=== PATIENT | male | born 1940 | race Caucasian/White ===

== ENCOUNTER 2019-09-19 07:53 | Inpatient (IN) | payer MEDICARE ==
--- NOTE | 2019-09-19 08:04 | ED ---
General Adult HPI - General Stated complaint: Stemi Time Seen by Provider: 09/19/19 08:00 Source: EMS Mode of arrival: EMS Limitations: no limitations - History of Present Illness Initial comments: Dictation was produced using Viewpoint Digital dictation software. please excuse any gra mmatical, word or spelling errors. This patient was cared for during a federal and state declared state of emergency secondary to Covid 19 Chief Complaint: 79-year-old male past medical history of hypertension presents with chest pain History of Present Illness: Is 9-year-old male is brought in by EMS for chest pain. Patient states he was going through his daily routine. Taken his pills when all of a sudden he developed substernal left-sided chest pain. Patient states her was maybe some clammy and diaphoresis during the onset of his symptoms. Denies any numbness feeling to his arms or legs. Patient states that since me in emergency department he feels okay. Still does have some 4-10 chest pain. Patient denies any history of heart attacks. He denies any cardiac issues. EMS was called. EMS performed EKG concerning for inferior wall STEMI. The ROS documented in this emergency department record has been reviewed and confirmed by me. Those systems with pertinent positive or negative responses have been documented in the HPI. All other systems are other negative and/or noncontributory. PHYSICAL EXAM: General Impression: Alert and oriented x3, not in acute distress HEENT: Normocephalic atraumatic, extra-ocular movements intact, pupils equal and reactive to light bilaterally, mucous membranes moist. Cardiovascular: Heart regular rate and rhythm Chest: Able to complete full sentences, no retractions, no tachypnea Abdomen: abdomen soft, non-tender, non-distended, no organomegaly Musculoskeletal: Pulses present and equal in all extremities, no peripheral edema Motor: no focal deficits noted Neurological: CN II-XII grossly intact, no focal motor or sensory deficits noted Skin: Intact with no visualized rashes Psych: Normal affect and mood ED course: 79-year-old male presents with acute coronary syndrome. EMS faxed over patient's prehospital EKG showing inferior wall STEMI. EMS also performed a right-sided V4 lead showing elevations. Patient is given prehospital aspirin. He was not given any nitroglycerin. As upon arrival are within acceptable limits. Discussed patient case with Dr. Jones prior to patient's arrival. He requested that patient be briefly evaluated in the ER and to have blood obtained for laboratory evaluation and to hence directly to the rags laborer. EKG in our emergency department was obtained showing ST elevations in the inferior leads with reciprocal changes in high lateral and precordial leads concerning for ST segment elevation GA. Patient disposition directly to the catheterization lab. EKG interpretation: Ventricular rate 70, normal sinus rhythm, right bundle branch block,. Interval 190, QRS 152, QTC 473. ST elevations in II, III, and F aVF with T-wave inversions. There are ST depressions in V2 V3, 1 and aVL.. EKG consistent with ST segment elevation GA. - Related Data Home Medications Medication Instructions Recorded Confirmed Atorvastatin Calcium [Lipitor] 20 mg PO HS 09/19/19 09/19/19 Beet Root 1000mg 2,000 mg PO DAILY 09/19/19 09/19/19 Cholecalciferol [Vitamin D3 (25 5,000 unit PO DAILY 09/19/19 09/19/19 Mcg = 1000 Iu)] Citalopram Hydrobromide [CeleXA] 20 mg PO DAILY 09/19/19 09/19/19 Donepezil [Aricept] 10 mg PO DAILY 09/19/19 09/19/19 Magnesium Oxide [Mag-Ox] 800 mg PO DAILY 09/19/19 09/19/19 Memantine HCl [Memantine HCl ER] 28 mg PO DAILY 09/19/19 09/19/19 Tamsulosin HCl [Flomax] 0.4 mg PO DAILY 09/19/19 09/19/19 Vitamin B Complex 1 tab PO DAILY 09/19/19 09/19/19 amLODIPine [Norvasc] 5 mg PO DAILY 09/19/19 09/19/19 traZODone HCL 150 mg PO HS 09/19/19 09/19/19 Allergies Allergy/AdvReac Type Severity Reaction Status Date / Time Penicillins Allergy Rash/Hives Verified 09/19/19 11:16 Review of Systems ROS Statement: Those systems with pertinent positive or pertinent negative responses have been documented in the HPI. ROS Other: All systems not noted in ROS Statement are negative. Past Medical History Past Medical History: Unable to Obtain, Dementia History of Any Multi-Drug Resistant Organisms: None Reported Past Surgical History: Unable to Obtain Past Psychological History: No Psychological Hx Reported Smoking Status: Never smoker Past Alcohol Use History: Daily Past Drug Use History: None Reported - Past Family History Father Additional Family Medical History / Comment(s): Father was an alcoholic. Mother Additional Family Medical History / Comment(s): Mother was an alcoholic General Exam Limitations: no limitations Course Vital Signs 09/19/19 07:57 Temperature 98.4 F Pulse Rate 71 Respiratory 18 Rate Blood Pressure 108/77 O2 Sat by Pulse 94 L Oximetry Medical Decision Making - Lab Data Result diagrams: 09/21/19 05:02 09/21/19 05:02 Lab Results 09/19/19 09/19/19 09/19/19 Range/Units 08:02 08:02 08:02 WBC 13.0 H (3.8-10.6) k/uL RBC 3.97 L (4.30-5.90) m/uL Hgb 13.5 (13.0-17.5) gm/dL Hct 39.5 (39.0-53.0) % MCV 99.5 (80.0-100.0) fL MCH 34.0 (25.0-35.0) pg MCHC 34.1 (31.0-37.0) g/dL RDW 12.9 (11.5-15.5) % Plt Count 249 (150-450) k/uL Neutrophils % 82 % Lymphocytes % 8 % Monocytes % 8 % Eosinophils % 1 % Basophils % 0 % Neutrophils # 10.6 H (1.3-7.7) k/uL Lymphocytes # 1.0 (1.0-4.8) k/uL Monocytes # 1.1 H (0-1.0) k/uL Eosinophils # 0.1 (0-0.7) k/uL Basophils # 0.0 (0-0.2) k/uL PT 9.8 (9.0-12.0) sec INR 0.9 (<1.2) APTT 25.9 (22.0-30.0) sec Sodium 138 (137-145) mmol/L Potassium 3.9 (3.5-5.1) mmol/L Chloride 105 (98-107) mmol/L Carbon Dioxide 26 (22-30) mmol/L Anion Gap 7 mmol/L BUN 16 (9-20) mg/dL Creatinine 0.83 (0.66-1.25) mg/dL Est GFR (CKD-EPI)AfAm >90 (>60 ml/min/1.73 sqM) Est GFR (CKD-EPI)NonAf 85 (>60 ml/min/1.73 sqM) Glucose 133 H (74-99) mg/dL Calcium 9.0 (8.4-10.2) mg/dL Total Bilirubin 0.4 (0.2-1.3) mg/dL AST 495 H (17-59) U/L ALT 73 H (4-49) U/L Alkaline Phosphatase 74 (38-126) U/L Total Creatine Kinase (55-170) U/L CK-MB (CK-2) (0.0-2.4) ng/mL CK-MB (CK-2) Rel Index Troponin I (0.000-0.034) ng/mL Total Protein 6.8 (6.3-8.2) g/dL Albumin 4.1 (3.5-5.0) g/dL 09/19/19 Range/Units 08:02 WBC (3.8-10.6) k/uL RBC (4.30-5.90) m/uL Hgb (13.0-17.5) gm/dL Hct (39.0-53.0) % MCV (80.0-100.0) fL MCH (25.0-35.0) pg MCHC (31.0-37.0) g/dL RDW (11.5-15.5) % Plt Count (150-450) k/uL Neutrophils % % Lymphocytes % % Monocytes % % Eosinophils % % Basophils % % Neutrophils # (1.3-7.7) k/uL Lymphocytes # (1.0-4.8) k/uL Monocytes # (0-1.0) k/uL Eosinophils # (0-0.7) k/uL Basophils # (0-0.2) k/uL PT (9.0-12.0) sec INR (<1.2) APTT (22.0-30.0) sec Sodium (137-145) mmol/L Potassium (3.5-5.1) mmol/L Chloride (98-107) mmol/L Carbon Dioxide (22-30) mmol/L Anion Gap mmol/L BUN (9-20) mg/dL Creatinine (0.66-1.25) mg/dL Est GFR (CKD-EPI)AfAm (>60 ml/min/1.73 sqM) Est GFR (CKD-EPI)NonAf (>60 ml/min/1.73 sqM) Glucose (74-99) mg/dL Calcium (8.4-10.2) mg/dL Total Bilirubin (0.2-1.3) mg/dL AST (17-59) U/L ALT (4-49) U/L Alkaline Phosphatase (38-126) U/L Total Creatine Kinase 2933 H* (55-170) U/L CK-MB (CK-2) 127.0 H (0.0-2.4) ng/mL CK-MB (CK-2) Rel Index Troponin I 70.300 H* (0.000-0.034) ng/mL Total Protein (6.3-8.2) g/dL Albumin (3.5-5.0) g/dL Disposition Clinical Impression: ST elevation myocardial infarction (STEMI) Disposition: ADMITTED IP TO THIS HOSP Condition: Critical Decision Time: 14:51
[2019-09-19] MEDS ORDERED: NALOXONE 0.4 MG/ML 1 ML VIAL IV PRN (08:09)
[2019-09-19 08:10] LABS: Basophils % (A) 0 %; Eosinophils # (A) 0.1 k/uL (0-0.7); Eosinophils % (A) 1 %; HCT 39.5 % (39.0-53.0); HGB 13.5 gm/dL (13.0-17.5); Lymphocytes % (A) 8 %; MCHC 34.1 g/dL (31.0-37.0); MCV 99.5 fL (80.0-100.0); Mean Platelet Volume 7.6; Monocytes # (A) 1.1 k/uL (0-1.0); Monocytes % (A) 8 %; Neutrophils # (A) 10.6 k/uL (1.3-7.7); Neutrophils % (A) 82 %; Platelet Count 249 k/uL (150-450); RBC 3.97 m/uL (4.30-5.90); RDW 12.9 % (11.5-15.5)
[2019-09-19] MEDS ORDERED: LIDOCAINE 1% INJ 10MG/ML (20 ML MDV) ONE ×2 (08:13→08:25)
[2019-09-19] MEDS ORDERED: LIDOCAINE 1% INJ 10MG/ML (20 ML MDV) SQ ONE ×2 (08:17→08:19)
[2019-09-19] MEDS ORDERED: MIDAZOLAM 2 MG/2 ML VIAL IV ONE (08:17)
[2019-09-19 08:18] LABS: INR 0.9 (<1.2)
[2019-09-19] MEDS ORDERED: SODIUM CHLORIDE 0.9% 1,000 ML IV ONE (08:18)
[2019-09-19 08:19] LABS: Partial Thromboplastin Time 25.9 sec (22.0-30.0); Prothrombin Time 9.8 sec (9.0-12.0)
[2019-09-19 08:20] LABS: African American GFR (CKD) >90 (>60 ml/min/1.73 sqM); Anion Gap 7 mmol/L; Blood Urea Nitrogen 16 mg/dL (9-20); Carbon Dioxide 26 mmol/L (22-30); Chloride 105 mmol/L (98-107); Glucose 133 mg/dL (74-99); Non-African American GFR(CKD) 85 (>60 ml/min/1.73 sqM); Potassium 3.9 mmol/L (3.5-5.1); Sodium 138 mmol/L (137-145); Total Protein 6.8 g/dL (6.3-8.2)
[2019-09-19 08:21] LABS: ALT 73 U/L (4-49); AST 495 U/L (17-59); Albumin 4.1 g/dL (3.5-5.0); Alkaline Phosphatase 74 U/L (38-126); Total Bilirubin 0.4 mg/dL (0.2-1.3)
[2019-09-19] MEDS ORDERED: CLOPIDOGREL 75 MG TAB ONE (08:45)
[2019-09-19] MEDS ORDERED: BIVALIRUDIN BOLUS 250 MG/50 ML IV ONE (08:46)
[2019-09-19 08:47] LABS: Troponin I 70.3 ng/mL (0.000-0.034)
[2019-09-19] MEDS ORDERED: BIVALIRUDIN 250 MG in SODIUM CHLORIDE 0.9% 50 ML IV ONE (08:47)
[2019-09-19] MEDS ORDERED: CLOPIDOGREL 75 MG TAB PO ONE (08:47)
[2019-09-19] MEDS ORDERED: NITROGLYCERIN 1000MCG/10ML SYRINGE INTRACORON ONE ×2 (08:50)
[2019-09-19] MEDS ORDERED: IOPAMIDOL-370 100ML BTL INJ ONE (08:56)
[2019-09-19] MEDS ORDERED: MAG HYDROX/AL HYDROX/SIMETH 30 ML CUP PO PRN (10:03)
[2019-09-19] MEDS ORDERED: ATROPINE SULFATE 0.1 MG/ML 10ML SYRINGE IV PRN (10:03)
[2019-09-19] MEDS ORDERED: ZOLPIDEM 5 MG TAB PO PRN (10:03)
[2019-09-19] MEDS ORDERED: NITROGLYCERIN SL TABS 0.4 MG TAB SUBLINGUAL PRN (10:03)
[2019-09-19] MEDS ORDERED: RX INFO: IV CONTRAST WAS GIVEN 1 EACH MISC MISCELLANE PRN (10:03)
[2019-09-19] MEDS ORDERED: SODIUM CHLORIDE 0.9% 1,000 ML IV SCH (10:15)
[2019-09-19 10:44] LABS: Glucose,Whole Blood 131 mg/dL (75-99)
[2019-09-19] MEDS ORDERED: traZODone HCL 50 MG TAB PO PRN (11:24)
--- NOTE | 2019-09-19 11:32 | P.HPIM ---
History of Present Illness patient is a pleasant 79-year-old male came with complaints of left-sided chest pain which started today nonexertional, associated diaphoresis and nausea. Patient denied any fever chills cough. Patient is found to have ST elevations in the inferior leads with highly elevated troponin of 70. Patient was emergently taken to High Lift Mule Operator had stenting to RCA. Patient still has mild chest pain. Denied any other significant symptoms Review of Systems REVIEW OF SYSTEMS: CONSTITUTIONAL: No fever, no malaise, no fatigue. HEENT: No recent visual problems or hearing problems. Denied any sore throat. CARDIOVASCULAR: No orthopnea, PND, no palpitations, no syncope. PULMONARY: No shortness of breath, no cough, no hemoptysis. GASTROINTESTINAL: No diarrhea, no nausea, no vomiting, no abdominal pain. NEUROLOGICAL: No headaches, no weakness, no numbness. HEMATOLOGICAL: Denies any bleeding or petechiae. GENITOURINARY: Denies any burning micturition, frequency, or urgency. MUSCULOSKELETAL/RHEUMATOLOGICAL: Denies any joint pain, swelling, or any muscle pain. ENDOCRINE: Denies any polyuria or polydipsia. The rest of the 14-point review of systems is negative. Past Medical History Past Medical History: Cancer, Dementia, Hearing Disorder / Deafness, Hy perlipidemia, Hypertension, Prostate Disorder Additional Past Medical History / Comment(s): Prostate cancer with radiation treatments, benign colon polyps, bilateral hearing aides. History of Any Multi-Drug Resistant Organisms: None Reported Past Surgical History: Heart Catheterization With Stent Additional Past Surgical History / Comment(s): Cystoscopy, colonoscopy with benign polypectomy, EGD as a child for foreign object, R elbow fracture with surgery, L hand injury with surgery. Past Anesthesia/Blood Transfusion Reactions: No Reported Reaction Date of Last Stent Placement:: 09/19/19 Smoking Status: Former smoker - Past Family History Father Additional Family Medical History / Comment(s): Father was an alcoholic. Mother Additional Family Medical History / Comment(s): Mother was an alcoholic Medications and Allergies Home Medications Medication Instructions Recorded Confirmed Type Atorvastatin Calcium [Lipitor] 20 mg PO HS 09/19/19 09/19/19 History Beet Root 1000mg 2,000 mg PO DAILY 09/19/19 09/19/19 History Cholecalciferol [Vitamin D3 (25 5,000 unit PO DAILY 09/19/19 09/19/19 History Mcg = 1000 Iu)] Citalopram Hydrobromide [CeleXA] 20 mg PO DAILY 09/19/19 09/19/19 History Donepezil [Aricept] 10 mg PO DAILY 09/19/19 09/19/19 History Magnesium Oxide [Mag-Ox] 800 mg PO DAILY 09/19/19 09/19/19 History Memantine HCl [Memantine HCl ER] 28 mg PO DAILY 09/19/19 09/19/19 History Tamsulosin HCl [Flomax] 0.4 mg PO DAILY 09/19/19 09/19/19 History Vitamin B Complex 1 tab PO DAILY 09/19/19 09/19/19 History amLODIPine [Norvasc] 5 mg PO DAILY 09/19/19 09/19/19 History traZODone HCL 150 mg PO HS 09/19/19 09/19/19 History Allergies Allergy/AdvReac Type Severity Reaction Status Date / Time Penicillins Allergy Rash/Hives Verified 09/19/19 11:16 Physical Exam Vitals: Vital Signs Temp Pulse Resp BP Pulse Ox 09/19/19 11:00 69 16 89/59 93 L 09/19/19 10:45 67 15 89/59 96 09/19/19 10:30 67 20 94/77 94 L 09/19/19 10:15 97.6 F 65 15 81/53 95 09/19/19 07:57 98.4 F 71 18 108/77 94 L Intake and Output 09/18/19 09/19/19 09/19/19 22:59 06:59 14:59 Intake Total 507 Balance 507 Intake: IV 507 Sheaths 12 Sodium Chloride 0.9% 1, 80 000 ml @ 75 mls/hr IV . [id number] [facility] Rx#:[id number] Other: Weight 71.214 kg PHYSICAL EXAMINATION: GENERAL: The patient is alert and oriented x3, not in any acute distress. Well developed, well nourished. HEENT: Pupils are round and equally reacting to light. EOMI. No scleral icterus. No conjunctival pallor. Normocephalic, atraumatic. No pharyngeal erythema. No thyromegaly. CARDIOVASCULAR: S1 and S2 present. No murmurs, rubs, or gallops. PULMONARY: Chest is clear to auscultation, no wheezing or crackles. ABDOMEN: Soft, nontender, nondistended, normoactive bowel sounds. No palpable organomegaly. MUSCULOSKELETAL: No joint swelling or deformity. EXTREMITIES: No cyanosis, clubbing, or pedal edema. NEUROLOGICAL: Gross neurological examination did not reveal any focal deficits. SKIN: No rashes. Results CBC & Chem 7: 09/19/19 08:02 09/19/19 08:02 Labs: Abnormal Lab Results - Last 24 Hours (Table) 09/19/19 09/19/19 09/19/19 Range/Units 08:02 08:02 08:02 WBC 13.0 H (3.8-10.6) k/uL RBC 3.97 L (4.30-5.90) m/uL Neutrophils # 10.6 H (1.3-7.7) k/uL Monocytes # 1.1 H (0-1.0) k/uL Glucose 133 H (74-99) mg/dL POC Glucose (mg/dL) (75-99) mg/dL AST 495 H (17-59) U/L ALT 73 H (4-49) U/L Total Creatine Kinase 2933 H* (55-170) U/L CK-MB (CK-2) 127.0 H (0.0-2.4) ng/mL Troponin I 70.300 H* (0.000-0.034) ng/mL 09/19/19 Range/Units 10:42 WBC (3.8-10.6) k/uL RBC (4.30-5.90) m/uL Neutrophils # (1.3-7.7) k/uL Monocytes # (0-1.0) k/uL Glucose (74-99) mg/dL POC Glucose (mg/dL) 131 H (75-99) mg/dL AST (17-59) U/L ALT (4-49) U/L Total Creatine Kinase (55-170) U/L CK-MB (CK-2) (0.0-2.4) ng/mL Troponin I (0.000-0.034) ng/mL Thrombosis Risk Factor Assmnt - Choose All That Apply Any of the Below Risk Factors Present?: Yes Each Factor Represents 1 point: Acute [place] Other Risk Factors: Yes Each Risk Factor Represents 2 Points: Patient confined to bed, Malignancy Each Risk Factor Represents 3 Points: Age 75 years or older Other congenital or acquired thrombophilia - If yes, enter type in comment: No Thrombosis Risk Factor Assessment Total Risk Factor Score: 8 Thrombosis Risk Factor Assessment Level: High Risk Assessment and Plan Plan: -acute inferior wall ST elevation myocardial infarction: Patient is status post cardiac catheterization stenting of the RCA. Continue with the dual antip latelet therapy patient is on low-dose of lisinopril but blood pressure is low we'll closely monitor the blood pressure and if it's better patient will receive this medication patient will be continued on beta zahida for heart rate can tolerate. -essential hypertension: Patient is presently hypotensive further management as mentioned above -Hyperlipidemia next and having benign prostatic hypertrophy -Dementia as per the documentation also etiology is not clear
--- NOTE | 2019-09-19 12:46 | CC ---
CARDIAC CATHETERIZATION REPORT INDICATION: Acute inferior wall myocardial infarction. PROCEDURE NOTE: After obtaining informed consent, left heart catheterization and coronary angiogram were performed via the right femoral artery. The patient has very feeble femoral pulses bilaterally and distally. I initially attempted vascular access on the right femoral artery and after placing the sheath, we were not able to advance the regular wire across the vessel. I used a Glidewire, but even the Glidewire we were not able to pass the Glidewire across the iliac vessels and an angiogram we obtained showed severe stenosis and hence we attempted vascular access on the left side and we obtained vascular access without any problems, and we were able to pass the Glidewire all the way into the ascending aorta. However, we were not able to advance the right and left Sreedhar catheter into the aorta. On the right side, cath by Flying I Instructor placed a long 23 cm sheath using a stiff Glidewire as support and I completed the catheterization through that sheath. The patient throughout this remained comfortable at rest and did not complain of anything. FINDINGS: HEMODYNAMICS: Central aortic pressure 90/50. LEFT VENTRICULOGRAM: Left ventriculogram is not performed. ANGIOGRAPHIC DATA: 1. RIGHT CORONARY ARTERY: Right coronary artery is totally occluded in its midportion. 2. Left main coronary artery is a normal-sized vessel and is free of stenosis. Divides into left anterior descending coronary artery and circumflex coronary artery. 3. LEFT ANTERIOR DESCENDING CORONARY ARTERY: LAD and its branches, circumflex coronary artery and branches are free of significant stenosis. CONCLUSION: Acute occlusion of the right coronary artery. PLAN: Patient will undergo angioplasty of the same. Patient received moderate conscious sedation. Total sedation time was 28 minutes. MMODL / IJN: [id number] /
--- NOTE | 2019-09-19 12:56 | PTCA ---
PERCUTANEOUSTRANS CORORONARY ANGIOGRAPHY DATE OF SERVICE: September 19, 2019 PERFORMING PHYSICIAN: Elroy Gupta MD. PROCEDURE PERFORMED: 1. Successful stenting of the mid right coronary artery using 2.75 x 18 mm Xience ROJAS with an excellent angiographic results and reduction of stenosis from 100% to 0%. 2. Aspiration thrombectomy from the right coronary artery. 3. Left heart catheterization. INDICATION: This is a 79-year-old gentleman with hypertension and dyslipidemia who was brought by ambulance with acute inferior ST-elevation myocardial infarction. He underwent an emergent heart catheterization by Dr. Jones and was found to have an acute total occlusion of the right coronary artery. Because of that, an emergent percutaneous coronary intervention was advised. APPROACH: Right common femoral artery. COMPLICATION: None. LEVEL OF SEDATION: Moderate with sedation length of 27 minutes. Door to balloon is 56 minutes. PROCEDURE DESCRIPTION: Please refer to diagnostic heart catheterization was performed by Dr. Jones earlier today. Anticoagulation was initiated using Angiomax. Subsequently, I did engage the right coronary artery using JR4 guide. I did cross the lesion in the mid right coronary artery using a run-through wire. After that, I did aspiration thrombectomy from the right coronary artery with the extraction of white clot. Subsequently, I did the balloon angioplasty of the right coronary artery using 2.5 x 12 mm balloon where the balloon was inflated under 12 atmospheres for 20 seconds. After that, I did place 2.75 x 18 mm Xience ROJAS where the stent was positioned under fluoroscopy guidance and deployed under 18 atmospheres for 20 seconds. The following angiogram showed excellent angiographic results and the procedure was completed without any complication. After that, I did cross the aortic valve to the left ventricle using 6-Frisian pigtail catheter. The procedure was completed without any complication. POSTPROCEDURE MANAGEMENT: 1. Dual anti-platelet therapy. 2. Risk factors modifications. 3. Assess the lesions in the iliac artery and consider percutaneous transluminal angioplasty of bilateral iliacs if the patient is symptomatic. 4. Follow up with the patient. MMODL / IJN: [id number] /
--- NOTE | 2019-09-19 14:02 | CONS ---
FELIPA Hill is a 79-year-old gentleman with history of hypertension who presented to hospital with acute inferior wall myocardial infarction. The patient stated that this morning he started having severe chest pressure, moderate to severe intensity that radiated down both arms. An EKG transmitted by EMS showed evidence of acute inferior wall myocardial infarction. He was brought to the hospital laboratory technician for primary angioplasty. At the time of my evaluation in the lab, the patient appeared comfortable at rest, hemodynamically stable, but was still having pain. Past medical history is significant for hypertension. He is allergic to PENICILLIN. He stated that he was on blood pressure medications, but we do not have the list. FAMILY HISTORY: Negative for premature coronary artery disease. SOCIAL HISTORY: Negative for smoking, EtOH abuse, or drug abuse. REVIEW OF SYSTEMS: HEENT is unremarkable. Cardiac as above. Respiratory negative. GI negative. negative. Allergy/Immunology negative. Skin negative. Musculoskeletal significant for arthritis. Psychosocial negative. Endocrine negative. CONSTITUTIONAL negative. Derm negative. ONCOLOGICAL: Negative PHYSICAL TESTING SUPERVISOR negative. Rest of the system review is not relevant. EXAM: Comfortable at rest. Heart rate is 108, blood pressure is 90/50. Respiratory rate is 18. There is no jugular venous distention. Carotid upstroke is normal. There is no bruit. Chest exam reveals good air entry bilaterally. Heart exam reveals first and second heart sounds. No gallop. No murmur. Abdomen soft. Exam of extremities did not reveal any edema. Peripheral pulses are diminished. Labs show a hemoglobin of 13.5, platelet count is 249, potassium is 3.9, creatinine is 0.8. His troponin is 70. AST is 495, ALT is 73. ASSESSMENT: Acute inferior wall myocardial infarction. PLAN: Patient will undergo emergent cardiac catheterization. MMODL / IJN: [id number] /
--- NOTE | 2019-09-19 19:13 | ECHOF ---
Referral Reason:STEMI MEASUREMENTS -------- HEIGHT: 170.2 cm WEIGHT: 71.2 kg BP: 82/58 RVIDd: 3.6 cm (< 3.3) IVSd: 1.2 cm (0.6 - 1.1) LVIDd: 5.6 cm (3.9 - 5.3) LVPWd: 1.0 cm (0.6 - 1.1) IVSs: 1.6 cm LVIDs: 4.4 cm LVPWs: 1.2 cm LA Diam: 3.7 cm (2.7 - 3.8) LAESV Index (A-L): 32.07 ml/m Ao Diam: 4.0 cm (2.0 - 3.7) AV Cusp: 2.2 cm (1.5 - 2.6) MV EXCURSION: 16.659 mm (> 18.000) MV EF SLOPE: 107 mm/s (70 - 150) EPSS: 0.8 cm MV E Bradley: 1.12 m/s MV DecT: 216 ms MV A Bradley: 0.96 m/s MV E/A Ratio: 1.17 RAP: 15.00 mmHg RVSP: 42.27 mmHg FINDINGS -------- Sinus rhythm. This was a technically good study. The left ventricular size is normal. There is borderline concentric left ventricular hypertrophy. Overall left ventricular systolic function is mildly impaired with, an EF between 45 - 50 %. Basal posterior LV wall motion is hypokinetic. Basal inferior LV wall motion is hypokinetic. Basal i nferoseptal LV wall motion is hypokinetic. The right ventricle is mildly enlarged. LA is midly dilated 29-33ml/m2. The right atrium is normal in size. Interatrial and interventricular septum intact. There is mild aortic valve sclerosis. There is trace mitral regurgitation. Mild tricuspid regurgitation present. There is mild pulmonary hypertension. The right ventricular systolic pressure, as measured by Doppler, is 42.27mmHg. Trace/mild (physiologic) pulmonic regurgitation. The aortic root is dilated measuring 4.0cm. Normal inferior vena cava with less than 50% inspiratory collapse consistent with estimated right atr ial pressure of 15 mmHg. The inferior vena cava is mildly dilated. There is no pericardial effusion. CONCLUSIONS -------- 1. Sinus rhythm. 2. This was a technically good study. 3. The left ventricular size is normal. 4. There is borderline concentric left ventricular hypertrophy. 5. Overall left ventricular systolic function is mildly impaired with, an EF between 45 - 50 %. 6. Basal posterior LV wall motion is hypokinetic. 7. Basal inferior LV wall motion is hypokinetic. 8. Basal inferoseptal LV wall motion is hypokinetic. 9. The right ventricle is mildly enlarged. 10. LA is midly dilated 29-33ml/m2. 11. The right atrium is normal in size. 12. Interatrial and interventricular septum intact. 13. There is mild aortic valve sclerosis. 14. There is trace mitral regurgitation. 15. Mild tricuspid regurgitation present. 16. There is mild pulmonary hypertension. 17. The right ventricular systolic pressure, as measured by Doppler, is 42.27mmHg. 18. Trace/mild (physiologic) pulmonic regurgitation. 19. The aortic root is dilated measuring 4.0cm. 20. Normal inferior vena cava with less than 50% inspiratory collapse consistent with estimated right atrial pressure of 15 mmHg. 21. The inferior vena cava is mildly dilated. 22. There is no pericardial effusion. CHURCH SUPERVISOR: Nikia Delgado RDCS
[2019-09-19] MEDS: METOPROLOL TARTRATE 12.5 MG TAB PO SCH (20:17)
[2019-09-19] MEDS: ATORVASTATIN 80 MG TAB PO SCH (20:17)
[2019-09-20 05:12] LABS: HCT 43.1 % (39.0-53.0); HGB 14.3 gm/dL (13.0-17.5); MCH 34.2 pg (25.0-35.0); MCHC 33.1 g/dL (31.0-37.0); MCV 103.2 fL (80.0-100.0); Macrocytosis Slight; Mean Platelet Volume 7.9; Platelet Count 289 k/uL (150-450); RBC 4.18 m/uL (4.30-5.90); RDW 13.1 % (11.5-15.5); WBC 18.6 k/uL (3.8-10.6)
[2019-09-20 05:18] LABS: Calcium 9.1 mg/dL (8.4-10.2); Potassium 4.3 mmol/L (3.5-5.1)
--- NOTE | 2019-09-20 08:14 | XR ---
EXAMINATION TYPE: XR chest 1V portable DATE OF EXAM: 09/20/2019 COMPARISON: NONE HISTORY: Redness of breath TECHNIQUE: Single frontal view of the chest is obtained. FINDINGS: There is diffuse prominence of the interstitium, patchy perihilar airspace disease is note d. There is no pneumothorax or pleural effusion. There is overlying artifact, cardiac leads. Heart si ze is at the upper limit of normal. The aorta is dense. Bone mineralization is normal. IMPRESSION: Findings could represent interstitial and early alveolar edema, correlate to exclude pne umonia.
[2019-09-20] MEDS: MAGNESIUM OXIDE 400 MG TAB PO SCH (08:18)
[2019-09-20] MEDS: MEMANTINE 10 MG TAB PO SCH ×2 (08:18→21:28)
[2019-09-20] MEDS: CITALOPRAM HYDROBROMIDE 20 MG TAB PO SCH (08:18)
[2019-09-20] MEDS: METOPROLOL TARTRATE 12.5 MG TAB PO SCH ×2 (08:18→21:28)
[2019-09-20] MEDS: CLOPIDOGREL 75 MG TAB PO SCH (08:18)
[2019-09-20] MEDS: TAMSULOSIN 0.4 MG CAP.ER.24H PO SCH (08:19)
[2019-09-20] MEDS ORDERED: FUROSEMIDE 10 MG/ML 4 ML VIAL IV STA ×2 (08:38→19:34)
[2019-09-20] MEDS ORDERED: POTASSIUM CHLORIDE ER 10 MEQ TAB.ER.PRT PO STA (08:39)
[2019-09-20] MEDS ORDERED: LISINOPRIL 2.5 MG TAB PO SCH (09:00)
--- NOTE | 2019-09-20 09:21 | P.PN ---
Subjective Progress Note Date: 09/20/19 This is a 79-year-old gentleman with history of hypertension who presented with inferior wall myocardial infarction. Patient had a cardiac catheterization and stent placement of the mid RCA. His CPK was high in the troponin was in the range of 77 on admission. His echo Cardigan showed an ejection fraction of 45%. Patient is complaining of some congestion and seemed to be mild short of breath. Chest x-ray showed evidence of congestive heart failure. Heart appeared to be regular. No peripheral edema. I'm going to start him on IV Lasix 40 mg and start him by mouth Lasix. We'll also give potassium supplement. Rest of the medication to be continued. We'll continue follow his input and output. Follow blood work tomorrow. Further condition depend upon the clinical course. We'll continue to monitor him in intensive care unit Objective - Vital Signs Vital signs: Vital Signs Temp 98.2 F 09/20/19 04:00 Pulse 75 09/20/19 08:00 Resp 30 H 09/20/19 08:00 BP 97/62 09/20/19 08:00 Pulse Ox 93 L 09/20/19 08:00 Intake & Output 09/19/19 09/20/19 09/20/19 18:59 06:59 18:59 Intake Total 1032 440 Output Total 200 500 Balance 832 -60 Weight 71.214 kg 76.4 kg Intake: IV 882 Sheaths 12 Sodium Chloride 0.9% 1, 455 000 ml @ 75 mls/hr IV . [id number] [facility] Rx#:[id number] Oral 150 440 Output: Urine 200 500 Other: Voiding Method Urinal Bedside Commode # Voids 1 2 0 # Bowel Movements 2 - Exam GENERAL EXAM: Patient is alert and oriented and appears to be in mild respiratory distress and cough HEENT: Normocephalic. Normal reaction of pupils, equal size, normal range of extraocular motion. No erythema or exudates in the throat. NECK: No masses, no nuchal rigidity. CHEST: No chest wall deformity. LUNGS: Show expiratory wheezes and rhonchi HEART: [S1 and S2 normal ABDOMEN: No hepatosplenomegaly, normal bowel sounds, no guarding or rigidity. SKIN: No rashes CENTRAL NERVOUS SYSTEM: No focal deficits. EXTREMITIES: No cyanosis, clubbing or edema. - Labs CBC & Chem 7: 09/20/19 04:46 09/20/19 04:46 Labs: Abnormal Lab Results - Last 24 Hours (Table) 09/19/19 09/20/19 09/20/19 Range/Units 10:42 04:46 04:46 WBC 18.6 H (3.8-10.6) k/uL RBC 4.18 L (4.30-5.90) m/uL MCV 103.2 H (80.0-100.0) fL Sodium 134 L (137-145) mmol/L BUN 27 H (9-20) mg/dL Creatinine 1.49 H (0.66-1.25) mg/dL Glucose 188 H (74-99) mg/dL POC Glucose (mg/dL) 131 H (75-99) mg/dL Assessment and Plan (1) Acute transmural inferior wall [place] Current Visit: Yes Status: Acute Code(s): I21.19 - STEMI INVOLVING OTH CORONARY ARTERY OF INFERIOR WALL SNOMED Code(s): 37377545 (2) Acute combined systolic and diastolic heart failure Current Visit: Yes Status: Acute Code(s): I50.41 - ACUTE COMBINED SYSTOLIC AND DIASTOLIC (CONGESTIVE) HRT FAIL SNOMED Code(s): 286168407298871 (3) Essential hypertension Current Visit: Yes Status: Acute Code(s): I10 - ESSENTIAL (PRIMARY) HYPERTENSION SNOMED Code(s): 11460318 Plan: P.m. dose of IV Lasix and start him on by mouth Lasix and potassium. Continue rest of the medication. Continue ICU monitoring. Echocardiogram
--- NOTE | 2019-09-20 13:20 | ECHOF ---
Referral Reason:Chest pain and cardiomyopathy MEASUREMENTS -------- HEIGHT: 170.2 cm WEIGHT: 68.0 kg BP: 109/67 IVSd: 1.2 cm (0.6 - 1.1) LVIDd: 4.3 cm (3.9 - 5.3) LVPWd: 1.5 cm (0.6 - 1.1) IVSs: 1.6 cm LVIDs: 3.3 cm LVPWs: 1.2 cm FINDINGS -------- This was a technically difficult study with suboptimal apical views. Limited Study Overall left ventricular systolic function is mildly impaired with, an EF between 45 - 50 %. Basal posterior LV wall motion is hypokinetic. Basal inferior LV wall motion is hypokinetic. 5.0mg of Lumason was utilized for enhancement of images There is no pericardial effusion. CONCLUSIONS -------- 1. This was a technically difficult study with suboptimal apical views. 2. Limited Study 3. Overall left ventricular systolic function is mildly impaired with, an EF between 45 - 50 %. 4. Basal posterior LV wall motion is hypokinetic. 5. Basal inferior LV wall motion is hypokinetic. 6. 5.0mg of Lumason was utilized for enhancement of images 7. There is no pericardial effusion. BARN BOSS: Meredith Sommer RDCS
[2019-09-20] MEDS ORDERED: LEVOFLOXACIN 500MG-D5W PMX 500 MG in DEXTROSE/WATER 1 100ML.BAG IVPB SCH (20:00)
[2019-09-20 20:23] LABS: Basophils % (A) 0 %; Eosinophils # (A) 0.1 k/uL (0-0.7); Eosinophils % (A) 0 %; HCT 41.8 % (39.0-53.0); HGB 13.5 gm/dL (13.0-17.5); Lymphocytes # (A) 1.1 k/uL (1.0-4.8); Lymphocytes % (A) 6 %; MCH 32.4 pg (25.0-35.0); MCHC 32.2 g/dL (31.0-37.0); MCV 100.6 fL (80.0-100.0); Mean Platelet Volume 7.7; Monocytes # (A) 1.5 k/uL (0-1.0); Monocytes % (A) 8 %; Neutrophils # (A) 16.5 k/uL (1.3-7.7); Neutrophils % (A) 84 %; Platelet Count 274 k/uL (150-450); RBC 4.15 m/uL (4.30-5.90); WBC 19.6 k/uL (3.8-10.6)
[2019-09-20 20:27] LABS: Calcium 8.9 mg/dL (8.4-10.2); Potassium 4.2 mmol/L (3.5-5.1)
[2019-09-20] MEDS: ATORVASTATIN 80 MG TAB PO SCH (21:28)
[2019-09-20] MEDS: HEPARIN SODIUM,PORCINE 5,000 UNIT/ML 1 ML VIAL SQ SCH (21:34)
[2019-09-21 05:28] LABS: Basophils % (A) 0 %; Eosinophils # (A) 0.1 k/uL (0-0.7); Eosinophils % (A) 1 %; HCT 39.2 % (39.0-53.0); HGB 13.1 gm/dL (13.0-17.5); Lymphocytes # (A) 1.1 k/uL (1.0-4.8); Lymphocytes % (A) 6 %; MCHC 33.4 g/dL (31.0-37.0); MCV 101.7 fL (80.0-100.0); Macrocytosis Slight; Monocytes # (A) 1.1 k/uL (0-1.0); Monocytes % (A) 6 %; Neutrophils # (A) 15.5 k/uL (1.3-7.7); Neutrophils % (A) 86 %; Platelet Count 269 k/uL (150-450); RBC 3.85 m/uL (4.30-5.90); RDW 13.1 % (11.5-15.5); WBC 18.1 k/uL (3.8-10.6)
[2019-09-21 05:39] LABS: Calcium 8.6 mg/dL (8.4-10.2)
--- NOTE | 2019-09-21 07:22 | XR ---
EXAMINATION TYPE: XR chest 1V DATE OF EXAM: 09/21/2019 COMPARISON: 09/20/2019 INDICATION: Previous abnormal TECHNIQUE: Single frontal view of the chest is obtained. Position is semiupright FINDINGS: The heart size is normal. The pulmonary vasculature is increased. There is diffuse increased lung markings. This is more focal in the right lower lobe. Small right ple ural effusion may be present. IMPRESSION: 1. Clinical correlation recommended for pulmonary edema. Atypical pneumonia should be considered. Rig ht lower lobe pneumonia may be present.
[2019-09-21] MEDS ORDERED: FUROSEMIDE 40 MG TAB PO SCH (09:00)
[2019-09-21] MEDS ORDERED: FUROSEMIDE 10 MG/ML 4 ML VIAL IV SCH (09:30)
--- NOTE | 2019-09-21 09:37 | P.PN ---
Subjective This is a pleasant 79 years old male with past medical history of hypertension, hyperlipidemia, dementia, prostate cancer status post radiotherapy , patient presents because of chest pain found to have STEMI, he underwent cardiac cath status post stent placement in the right coronary artery. He is in the ICU. His creatinine increased today to 1.4, WBC is high at 18.6 and 19.6 K, sodium 131, his chest x-ray showing pulmonary congestion with possible interstitial pneumonia He saturating 90s on 7 L/m oxygen via nasal cannula. Sys Dir already given 1 dose of Lasix IV and continued on 40 mg by mouth daily, 1 going to give him another dose of Lasix. Blood pressure is on the low normal but he is tachypneic at 35. A but that side nurse his breathing is little better in the evening than in the morning and he did not need BiPAP for now. He is also on aspirin and Plavix, he is on metoprolol 12.5 mg and lisinopril 2.5 mg, we going to hold lisinopril for now Also call pulmonary and nephrology consult Review of systems CONSTITUTIONAL: No fever, no malaise, no fatigue. HEENT: No recent visual problems or hearing problems. Denied any sore throat. CARDIOVASCULAR: no palpitations, no syncope. PULMONARY: no hemoptysis. GASTROINTESTINAL: No diarrhea, no nausea, no vomiting, no abdominal pain. Normoactive bowel sounds. NEUROLOGICAL: No headaches, no weakness, no numbness. HEMATOLOGICAL: Denies any bleeding or petechiae. GENITOURINARY: Denies any burning micturition, frequency, or urgency. MUSCULOSKELETAL/RHEUMATOLOGICAL: Denies any joint pain, swelling, or any muscle pain. ENDOCRINE: Denies any polyuria or polydipsia. Medication including aspirin, Plavix, lisinopril, metoprolol, Levaquin, Lipitor, Celexa, subcutaneous heparin, magnesium, memory 18, nitroglycerin, tamsulosin, trazodone, Ambien. Doses is reviewed Objective - Vital Signs Vital signs: Vital Signs Temp 98.3 F 09/20/19 12:00 Pulse 80 09/20/19 18:00 Resp 34 H 09/20/19 18:00 BP 100/69 09/20/19 18:00 Pulse Ox 90 L 09/20/19 18:00 Intake & Output 09/19/19 09/20/1920 18:59 06:59 18:59 Intake Total 1032 440 Output Total 200 500 Balance 832 -60 Weight 71.214 kg 76.4 kg Intake: IV 882 Sheaths 12 Sodium Chloride 0.9% 1, 455 000 ml @ 75 mls/hr IV . [id number] [facility] Rx#:[id number] Oral 150 440 Output: Urine 200 500 Other: Voiding Method Urinal Bedside Commode # Voids 1 2 1 # Bowel Movements 2 1 - Exam GENERAL: The patient is alert and oriented x3, not in any acute distress. Well developed, well nourished. HEENT: Pupils are round and equally reacting to light. EOMI. No scleral icterus. No conjunctival pallor. Normocephalic, atraumatic. No pharyngeal erythema. No thyromegaly. CARDIOVASCULAR: S1 and S2 present. No murmurs, rubs, or gallops. -PULMONARY: Chest is clear to auscultation, bilateral basal crepitation ABDOMEN: Soft, nontender, nondistended, normoactive bowel sounds. No palpable organomegaly. MUSCULOSKELETAL: No joint swelling or deformity. EXTREMITIES: No cyanosis, clubbing, or pedal edema. NEUROLOGICAL: Gross neurological examination did not reveal any focal deficits. SKIN: No rashes. no petechiae. - Labs CBC & Chem 7: 09/21/19 05:02 09/21/19 05:02 Labs: Abnormal Lab Results - Last 24 Hours (Table) 09/20/19 09/20/19 Range/Units 04:46 04:46 WBC 18.6 H (3.8-10.6) k/uL RBC 4.18 L (4.30-5.90) m/uL MCV 103.2 H (80.0-100.0) fL Sodium 134 L (137-145) mmol/L BUN 27 H (9-20) mg/dL Creatinine 1.49 H (0.66-1.25) mg/dL Glucose 188 H (74-99) mg/dL Assessment and Plan Assessment: STEMI status post cardiac cath and stent placement in the RCA Acute hypoxic respiratory failure suspicious for pulmonary edema versus pneumonia Acute kidney injury Hypertension Hyperlipidemia History of prostate cancer status post radiotherapy Plan: This is a pleasant 79 years old male who presents with STEMI, complicated by respiratory failure and a KI. Continue with aspirin and Plavix, multimedia journalist following the case closely. Continue with diuretics. Consult sander hand and thread tool grinder set up operator. Monitor creatinine and electrolytes. Start the patient on Levaquin and follow- up protocol [facility] level. Labs and medication were reviewed.. Continue same treatment. Continue with symptomatic treatment. Resume home medication. Monitor lytes and vitals. DVT and GI prophylaxis. Further recommendations of the clinical course of the patient DVT prophylaxis: Subcutaneous heparin GI Prophylaxis: Pepcid PT/OT: Pending Prognosis is guarded
--- NOTE | 2019-09-21 09:41 | P.PN ---
Subjective This is a pleasant 79 years old male with past medical history of hypertension, hyperlipidemia, dementia, prostate cancer status post radiotherapy , patient presents because of chest pain found to have STEMI, he underwent cardiac cath status post stent placement in the right coronary artery. He is in the ICU. His creatinine increased today to 1.4, WBC is high at 18.6 and 19.6 K, sodium 131, his chest x-ray showing pulmonary congestion with possible interstitial pneumonia He saturating 90s on 7 L/m oxygen via nasal cannula. Clinical Biochemist already given 1 dose of Lasix IV and continued on 40 mg by mouth daily, 1 going to give him another dose of Lasix. Blood pressure is on the low normal but he is tachypneic at 35. A but that side nurse his breathing is little better in the evening than in the morning and he did not need BiPAP for now. He is also on aspirin and Plavix, he is on metoprolol 12.5 mg and lisinopril 2.5 mg, we going to hold lisinopril for now Also call pulmonary and nephrology consult 09/21/2019 Patient breathing easier but however his significantly tachypneic and mid 20s, he saturating 94% on 9 L oxygen via nasal cannula. His blood pressure 96/57 and heart rate 77. He still bleeding from dyspnea but no chest pain, he has little cough with clear phlegm. This morning he was trying to get out of bed to the restroom by himself when he fell on hit his head in the forehead area. Chest x-ray: Pulmonary edema, atypical pneumonia, some right lower lobe pneumonia WBC this morning is 18.1 K with slight improvement. Sodium 132, creatinine stable at 1.5. Procol stone and is elevated at 0.23 Patient is currently on by mouth Lasix, lisinopril is held, mixing plant operator recommended to continue with metoprolol 12.5, we going to check with cardiology about holding parameters. Continue with Levaquin. Ordered EKG Review of systems CONSTITUTIONAL: No fever, no malaise, no fatigue. HEENT: No recent visual problems or hearing problems. Denied any sore throat. CARDIOVASCULAR: no palpitations, no syncope. PULMONARY: no hemoptysis. GASTROINTESTINAL: No diarrhea, no nausea, no vomiting, no abdominal pain. Normoactive bowel sounds. NEUROLOGICAL: No headaches, no weakness, no numbness. HEMATOLOGICAL: Denies any bleeding or petechiae. GENITOURINARY: Denies any burning micturition, frequency, or urgency. MUSCULOSKELETAL/RHEUMATOLOGICAL: Denies any joint pain, swelling, or any muscle pain. ENDOCRINE: Denies any polyuria or polydipsia. Active Medications Generic Name Dose Route Start Last Admin Trade Name Freq PRN Reason Stop Dose Admin Al Hydroxide/Mg Hydroxide 30 ml 09/19/19 10:03 Maalox PO Q4HR PRN Heartburn Atorvastatin Calcium 80 mg 09/19/19 21:00 09/20/19 21:28 Lipitor PO 80 mg HS RJ Administration Atropine Sulfate 0.5 mg 09/19/19 10:03 Atropine IV ONCE PRN Symptomatic Bradycardia Citalopram Hydrobromide 20 mg 09/20/19 09:00 09/20/19 08:18 Celexa PO 20 mg DAILY RJ Administration Clopidogrel Bisulfate 75 mg 09/20/19 09:00 09/20/19 08:18 Plavix PO 75 mg DAILY RJ Administration Famotidine 20 mg 09/21/19 21:00 Pepcid IV Q12HR RJ Furosemide 40 mg 09/21/19 09:30 Lasix IV Q8HR RJ Heparin Sodium (Porcine) 5,000 unit 09/20/19 21:00 09/20/19 21:34 Heparin SQ 5,000 unit Q12HR RJ Administration Levofloxacin 500 mg/ IV 100 mls @ 100 mls/hr 09/20/19 20:00 09/20/19 21:55 Solution IVPB 100 mls/hr DAILY@2000 RJ Administration Magnesium Oxide 800 mg 09/20/19 09:00 09/20/19 08:18 Mag-Ox PO 800 mg DAILY RJ Administration Memantine 10 mg 09/20/19 09:00 09/20/19 21:28 Namenda PO 10 mg BID RJ Administration Metoprolol Tartrate 12.5 mg 09/19/19 21:00 09/20/19 21:28 Lopressor PO 12.5 mg BID RJ Administration Miscellaneous Information 1 each 09/19/19 10:03 Rx Info: Iv Contrast Was Given MISCELLANE 09/21/19 10:03 DAILY PRN Per Protocol Naloxone HCl 0.2 mg 09/19/19 08:09 Narcan IV Q2M PRN Opioid Reversal Nitroglycerin 0.4 mg 09/19/19 10:03 Nitrostat SUBLINGUAL Q5M PRN Chest Pain Tamsulosin HCl 0.4 mg 09/20/19 09:00 09/20/19 08:19 Flomax PO 0.4 mg DAILY RJ Administration Trazodone HCl 150 mg 09/19/19 11:24 Desyrel PO HS PRN Insomnia Zolpidem Tartrate 5 mg 09/19/19 10:03 Ambien PO HS PRN Insomnia Objective - Vital Signs Vital signs: Vital Signs Temp 97.1 F L 09/21/19 04:00 Pulse 81 09/21/19 07:00 Resp 21 09/21/19 07:00 BP 92/62 09/21/19 07:00 Pulse Ox 89 L 09/21/19 07:00 Intake & Output 09/20/19 09/21/19 09/21/19 18:59 06:59 18:59 Intake Total 600 Output Total 150 Balance 450 Weight 77.2 kg Intake: IV 100 Levofloxacin 500Mg-D5w 100 Pmx 500 mg In Dextrose/ Water 1 100ml.bag @ 100 mls/hr IVPB DAILY@2000 [facility] Rx#:[id number] Oral 500 Output: Urine 150 Other: Voiding Method Bedside Commode # Voids 1 0 1 # Bowel Movements 1 1 1 - Exam GENERAL: The patient is alert and oriented x3, not in any acute distress. Well developed, well nourished. HEENT: Pupils are round and equally reacting to light. EOMI. No scleral icterus. No conjunctival pallor. Normocephalic, atraumatic. No pharyngeal erythema. No thyromegaly. CARDIOVASCULAR: S1 and S2 present. No murmurs, rubs, or gallops. -PULMONARY: Chest is clear to auscultation, bilateral basal crepitation ABDOMEN: Soft, nontender, nondistended, normoactive bowel sounds. No palpable organomegaly. MUSCULOSKELETAL: No joint swelling or deformity. EXTREMITIES: No cyanosis, clubbing, or pedal edema. NEUROLOGICAL: Gross neurological examination did not reveal any focal deficits. SKIN: No rashes. no petechiae. - Labs CBC & Chem 7: 09/21/19 05:02 09/21/19 05:02 Labs: Abnormal Lab Results - Last 24 Hours (Table) 09/20/19 09/20/19 09/20/19 Range/Units 19:45 19:45 19:45 WBC 19.6 H (3.8-10.6) k/uL RBC 4.15 L (4.30-5.90) m/uL MCV 100.6 H (80.0-100.0) fL Neutrophils # 16.5 H (1.3-7.7) k/uL Monocytes # 1.5 H (0-1.0) k/uL Sodium 131 L (137-145) mmol/L BUN 37 H (9-20) mg/dL Creatinine 1.48 H (0.66-1.25) mg/dL Glucose 155 H (74-99) mg/dL Procalcitonin 0.23 H (0.02-0.09) ng/mL 09/21/19 09/21/19 Range/Units 05:02 05:02 WBC 18.1 H (3.8-10.6) k/uL RBC 3.85 L (4.30-5.90) m/uL MCV 101.7 H (80.0-100.0) fL Neutrophils # 15.5 H (1.3-7.7) k/uL Monocytes # 1.1 H (0-1.0) k/uL Sodium 132 L (137-145) mmol/L BUN 43 H (9-20) mg/dL Creatinine 1.53 H (0.66-1.25) mg/dL Glucose 139 H (74-99) mg/dL Procalcitonin (0.02-0.09) ng/mL Assessment and Plan Assessment: STEMI status post cardiac cath and stent placement in the RCA Acute hypoxic respiratory failure suspicious for pulmonary edema versus p neumonia Acute kidney injury Fall, with no dizziness or syncope Possible right lower lobe pneumonia, versus atypical pneumonia Hypertension Hyperlipidemia History of prostate cancer status post radiotherapy Plan: This is a pleasant 79 years old male who presents with STEMI, complicated by respiratory failure and a KI. Continue with aspirin and Plavix, mixing plant operator bin suggsing the case closely. Continue with diuretics. Consult wardrobe coordinator and production dispatcher. Monitor creatinine and electrolytes. Start the patient on Levaquin and follow- up protocol and electrolytes level. We will do CAT scan of the head and neuro check Labs and medication were reviewed.. Continue same treatment. Continue with symptomatic treatment. Resume home medication. Monitor lytes and vitals. DVT and GI prophylaxis. Further recommendations of the clinical course of the patient DVT prophylaxis: Subcutaneous heparin GI Prophylaxis: Pepcid PT/OT: Pending Prognosis is guarded
[2019-09-21] MEDS ORDERED: ACETAMINOPHEN TAB 325 MG TAB PO STA (09:56)
--- NOTE | 2019-09-21 10:04 | P.PN ---
Subjective Progress Note Date: 09/21/19 This is a 79-year-old gentleman with history of hypertension who presented with inferior wall myocardial infarction. Patient had a cardiac catheterization and stent placement of the mid RCA. His CPK was high in the troponin was in the range of 77 on admission. His echo Cardigan showed an ejection fraction of 45%. Patient is complaining of some congestion and seemed to be mild short of breath. Chest x-ray showed evidence of congestive heart failure. Heart appeared to be regular. No peripheral edema. I'm going to start him on IV Lasix 40 mg and start him by mouth Lasix. We'll also give potassium supplement. Rest of the medication to be continued. We'll continue follow his input and output. Follow blood work tomorrow. Further condition depend upon the clinical course. We'll continue to monitor him in intensive care unit 09/21/2019: This patient is admitted to the hospital with inferior wall AL, probably subacute. Patient had stent placement. His eldest was an ejection fraction of 40% to 45% with hypokinesis of the inferior wall. Patient has been short of breath. A chest x-ray showed some evidence of possible pulmonary edema and possible atypical pneumonia involving the right lower lobe. Patient does have white count elevation. Clinically he does have a slow murmur in the apical area and also left sternal border. Rule out possibility of mitral regurgitation. I'm going to repeat the echocardiogram. His urine output is fair. Pulmonary consult is requested regarding possible pneumonia. Objective - Vital Signs Vital signs: Vital Signs Temp 97.1 F L 09/21/19 04:00 Pulse 81 09/21/19 07:00 Resp 21 09/21/19 07:00 BP 92/62 09/21/19 07:00 Pulse Ox 89 L 09/21/19 07:00 Intake & Output 09/20/19 09/21/19 09/21/19 18:59 06:59 18:59 Intake Total 600 Output Total 150 Balance 450 Weight 77.2 kg Intake: IV 100 Levofloxacin 500Mg-D5w 100 Pmx 500 mg In Dextrose/ Water 1 100ml.bag @ 100 mls/hr IVPB DAILY@2000 [facility] Rx#:[id number] Oral 500 Output: Urine 150 Other: Voiding Method Bedside Commode # Voids 1 0 1 # Bowel Movements 1 1 1 - Exam GENERAL EXAM: Patient is alert and oriented and appears to be in mild respiratory distress and cough HEENT: Normocephalic. Normal reaction of pupils, equal size, normal range of extraocular motion. No erythema or exudates in the throat. NECK: No masses, no nuchal rigidity. CHEST: No chest wall deformity. LUNGS: Appear relatively clear compared to yesterday HEART: S1, S2 heard. Systolic murmur heard at the apex and left sternal border ABDOMEN: No hepatosplenomegaly, normal bowel sounds, no guarding or rigidity. SKIN: No rashes CENTRAL NERVOUS SYSTEM: No focal deficits. EXTREMITIES: No cyanosis, clubbing or edema. - Labs CBC & Chem 7: 09/21/19 05:02 09/21/19 05:02 Labs: Abnormal Lab Results - Last 24 Hours (Table) 09/20/19 09/20/19 09/20/19 Range/Units 19:45 19:45 19:45 WBC 19.6 H (3.8-10.6) k/uL RBC 4.15 L (4.30-5.90) m/uL MCV 100.6 H (80.0-100.0) fL Neutrophils # 16.5 H (1.3-7.7) k/uL Monocytes # 1.5 H (0-1.0) k/uL Sodium 131 L (137-145) mmol/L BUN 37 H (9-20) mg/dL Creatinine 1.48 H (0.66-1.25) mg/dL Glucose 155 H (74-99) mg/dL Procalcitonin 0.23 H (0.02-0.09) ng/mL 09/21/19 09/21/19 Range/Units 05:02 05:02 WBC 18.1 H (3.8-10.6) k/uL RBC 3.85 L (4.30-5.90) m/uL MCV 101.7 H (80.0-100.0) fL Neutrophils # 15.5 H (1.3-7.7) k/uL Monocytes # 1.1 H (0-1.0) k/uL Sodium 132 L (137-145) mmol/L BUN 43 H (9-20) mg/dL Creatinine 1.53 H (0.66-1.25) mg/dL Glucose 139 H (74-99) mg/dL Procalcitonin (0.02-0.09) ng/mL Assessment and Plan (1) Acute transmural inferior wall [place] Current Visit: Yes Status: Acute Code(s): I21.19 - STEMI INVOLVING OTH CORONARY ARTERY OF INFERIOR WALL SNOMED Code(s): 05124054 (2) Acute combined systolic and diastolic heart failure Current Visit: Yes Status: Acute Code(s): I50.41 - ACUTE COMBINED SYSTOLIC AND DIASTOLIC (CONGESTIVE) HRT FAIL SNOMED Code(s): 715527676883657 (3) Essential hypertension Current Visit: Yes Status: Acute Code(s): I10 - ESSENTIAL (PRIMARY) HYPERTENSION SNOMED Code(s): 08913926 Plan: P.m. dose of IV Lasix and start him on by mouth Lasix and potassium. Continue rest of the medication. Continue ICU monitoring. Echocardiogram. Patient seemed to be relatively better. Chest x-ray however shows vascular congestion and possible pneumonia. Does have a systolic murmur at the apex. I'm going to repeat echocardiogram to assess for any mitral regurgitation. Pulmonary consult is also requested. Continue current medical therapy
[2019-09-21] MEDS: FAMOTIDINE 20 MG TAB PO SCH (10:20)
[2019-09-21] MEDS: TAMSULOSIN 0.4 MG CAP.ER.24H PO SCH (10:21)
[2019-09-21] MEDS: MAGNESIUM OXIDE 400 MG TAB PO SCH (10:21)
[2019-09-21] MEDS: MEMANTINE 10 MG TAB PO SCH ×2 (10:21→20:26)
[2019-09-21] MEDS: CITALOPRAM HYDROBROMIDE 20 MG TAB PO SCH (10:22)
--- NOTE | 2019-09-21 10:52 | CT ---
EXAMINATION TYPE: CT brain wo con DATE OF EXAM: 09/21/2019 COMPARISON: INDICATION: Fall DLP: 1099.4 mGycm, Automated exposure control for dose reduction was used. CONTRAST: None CT of the brain is performed utilizing 3 mm thick sections through the posterior fossa and 3 mm thick sections through the remaining calvarium. Study is performed within 24 hours of arrival to the hosp [facility]. No abnormal hyperdensity is present to suggest an acute intracranial hemorrhage. No mass lesion is evident. No acute infarcts are evident. There is chronic appearing periventricular white matter changes most l ikely on the basis of chronic white matter ischemic change. Ventricles and sulci are slightly prominent for the patient age. Paranasal sinuses and mastoid air cells within the [id number] are clear. IMPRESSIONS: 1. Chronic appearing periventricular white matter ischemic changes with mild atrophy
[2019-09-21] MEDS: METOPROLOL TARTRATE 12.5 MG TAB PO SCH ×2 (11:39→20:26)
[2019-09-21] MEDS: HEPARIN SODIUM,PORCINE 5,000 UNIT/ML 1 ML VIAL SQ SCH ×2 (11:39→20:27)
[2019-09-21] MEDS: CLOPIDOGREL 75 MG TAB PO SCH (11:39)
--- NOTE | 2019-09-21 11:55 | P.NPCON ---
History of Present Illness - Reason for Consult acute renal failure - Chief Complaint Acute kidney injury post cardiac cath - History of Present Illness This is a 79-year-old who is admitted with chest pain and had a acute FL and underwent a right coronary artery stenting on 09/18/2021 days ago. Preprocedure his creatinine was 0.8 and post procedures gone up to 1.4 and 1.5. Urine output is documented at 150 mL for the last 24 hours Blood pressure is somewhat low in the 90s to 103 mm systolic. Patient has had 3-4 days of severe cough with yellow expectoration prior to his admission but denies any fever. His chest x-ray is suggestive pneumonia with additional congestive heart failure possibly. He is been treated with Lasix and his not responding very well. He is awake alert and complains of shoulder pains bilaterally but no chest pain. He is mildly short of breath. Says he is dizzy when he sits up. Denies any dysuria frequency. Past Medical History Past Medical History: Cancer, Dementia, Hearing Disorder / Deafness, Hyperlipidemia, Hypertension, Prostate Disorder Additional Past Medical History / Comment(s): Prostate cancer with radiation treatments, benign colon polyps, bilateral hearing aides. History of Any Multi-Drug Resistant Organisms: None Reported Past Surgical History: Heart Catheterization With Stent Additional Past Surgical History / Comment(s): Cystoscopy, colonoscopy with benign polypectomy, EGD as a child for foreign object, R elbow fracture with surgery, L hand injury with surgery. Past Anesthesia/Blood Transfusion Reactions: No Reported Reaction Date of Last Stent Placement:: 09/19/19 Smoking Status: Former smoker - Past Family History Father Additional Family Medical History / Comment(s): Father was an alcoholic. Mother Additional Family Medical History / Comment(s): Mother was an alcoholic Medications and Allergies Home Medications Medication Instructions Recorded Confirmed Type Atorvastatin Calcium [Lipitor] 20 mg PO HS 09/19/19 09/19/19 History Beet Root 1000mg 2,000 mg PO DAILY 09/19/19 09/19/19 History Cholecalciferol [Vitamin D3 (25 5,000 unit PO DAILY 09/19/19 09/19/19 History Mcg = 1000 Iu)] Citalopram Hydrobromide [CeleXA] 20 mg PO DAILY 09/19/19 09/19/19 History Donepezil [Aricept] 10 mg PO DAILY 09/19/19 09/19/19 History Magnesium Oxide [Mag-Ox] 800 mg PO DAILY 09/19/19 09/19/19 History Memantine HCl [Memantine HCl ER] 28 mg PO DAILY 09/19/19 09/19/19 History Tamsulosin HCl [Flomax] 0.4 mg PO DAILY 09/19/19 09/19/19 History Vitamin B Complex 1 tab PO DAILY 09/19/19 09/19/19 History amLODIPine [Norvasc] 5 mg PO DAILY 09/19/19 09/19/19 History traZODone HCL 150 mg PO HS 09/19/19 09/19/19 History Allergies Allergy/AdvReac Type Severity Reaction Status Date / Time Penicillins Allergy Rash/Hives Verified 09/19/19 11:16 Physical Exam Vitals: Vital Signs Temp Pulse Resp BP Pulse Ox 09/21/19 11:00 80 22 102/90 90 L 09/21/19 10:00 26 H 103/66 09/21/19 09:00 78 32 H 92 L 09/21/19 08:00 73 19 92/62 90 L 09/21/19 07:00 81 21 92/62 89 L 09/21/19 06:00 78 26 H 95/65 91 L 09/21/19 05:00 73 23 93/60 95 09/21/19 04:00 97.1 F L 82 22 88/57 91 L 09/21/19 03:00 75 23 09/21/19 02:00 78 14 96/59 09/21/19 01:00 98.2 F 77 26 H 88/61 93 L 09/21/19 00:00 75 24 91/62 88 L 09/20/19 23:00 76 18 84 L 09/20/19 22:00 78 14 89/64 91 L 09/20/19 21:00 79 28 H 105/64 90 L 09/20/19 20:00 99.3 F 84 34 H 99/69 90 L 09/20/19 19:58 91 L 09/20/19 19:28 81 16 98/63 89 L 09/20/19 19:00 88 35 H 98/78 92 L 09/20/19 18:30 84 17 98/65 91 L 09/20/19 18:00 80 34 H 100/69 90 L 09/20/19 17:30 80 32 H 94/68 90 L 09/20/19 17:00 85 25 H 119/74 90 L 09/20/19 16:30 99 24 99/65 91 L 09/20/19 16:00 79 18 109/67 92 L 09/20/19 15:30 79 27 H 105/67 90 L 09/20/19 15:00 81 28 H 101/67 93 L 09/20/19 14:30 82 26 H 105/66 93 L 09/20/19 14:00 79 27 H 114/68 92 L 09/20/19 13:30 87 25 H 102/63 90 L 09/20/19 13:00 81 30 H 94/64 90 L 09/20/19 12:00 98.3 F 74 25 H 98/66 91 L Intake and Output 09/20/19 09/21/19 09/21/19 22:59 06:59 14:59 Intake Total 600 Output Total 150 0 Balance 600 -150 0 Intake: IV 100 Levofloxacin 500Mg-D5w 100 Pmx 500 mg In Dextrose/ Water 1 100ml.bag @ 100 mls/hr IVPB DAILY@1999 [facility] Rx#:[id number] Oral 500 Output: Urine 150 0 Other: Voiding Method Bedside Commode Bedside Commode # Voids 0 0 1 # Bowel Movements 1 1 Weight 77.2 kg On examination is awake alert oriented but somewhat of a poor historian HEENT exam no JVP neck is supple no facial asymmetry Lungs exam is significant with crackles on the right side. Left side is clear good air entry bilaterally Heart sounds are unremarkable for any murmur rub gallop Abdomen soft nontender scaphoid nondistended Extremity exam was no edema Neurologically awake alert oriented. Is somewhat difficult to get history from though. He is warm to touch the Results - Lab Results Most recent lab results Calcium 8.6 mg/dL (8.4-10.2) 09/21/19 05:02 09/21/19 05:02 09/21/19 05:02 Assessment and Plan Assessment: Impression 1. Acute kidney injury from combination of low blood pressure, heart attack and cardiac catheterization dated 09/18/2021 days ago 2. Hypotension. 3. Possible pneumonia and congestive heart failure. 4. Covid- 19 negative. 5. Hyponatremia from acute kidney injury - sodium is 132 Commendations 1. Discussed with Dr. Gimenez, 2. Would diuresis cautiously as his blood pressure is low. 3. Watch his respiratory status closely and if necessary we can escalate his Lasix dose if it gets worse. 4. Strict I's and O's Thank you for this consultation and we'll continue to follow
--- NOTE | 2019-09-21 12:47 | ECHOF ---
Referral Reason:repeat check for mitral leakage MEASUREMENTS -------- HEIGHT: 170.2 cm WEIGHT: 77.1 kg BP: FINDINGS -------- Sinus rhythm. Echo Done 09/20/19: Limited study for mr. Mild mitral regurgitation is present. There is no pericardial effusion. CONCLUSIONS -------- 1. Sinus rhythm. 2. Echo Done 09/20/19: Limited study for mr. 3. Mild mitral regurgitation is present. 4. There is no pericardial effusion. [employer] COORDINATOR: Katharine Dotson RDCS
--- NOTE | 2019-09-21 13:14 | P.CNPUL ---
History of Present Illness Consult date: 09/21/19 Reason for consult: dyspnea Chief complaint: Chest pain History of present illness: This is a 79-year-old white male with history of hypertension, dyslipidemia, dementia, history of prostate cancer and previous radiation treatment, patient presented to the ER on 09/19/19, his chief complaint was mostly left-sided chest p ain, started that same day, and it was at rest. It was associated with diaphoresis and nausea. Patient was found to have ST elevation in the inferior leads, and significantly elevated troponin. Underwent cardiac catheterization, and stenting of the RCA. Echocardiogram showed moderate severe LV dysfunction. And mild pulmonary hypertension. Initial chest x-ray on admission showed interstitial alveolar edema, and over the last 24 hours, his chest x-ray significantly worsened, more interstitial edema is noted, and his O2 requirement went up to 9 L. Patient was transferred to the ICU, and I was asked to see him on consultation. Chest x-ray clearly is suggestive of pulmonary edema, of cour se cannot rule out underlying pneumonia in the right lower lobe. However on presentation his presentation was mostly a presentation of chest pain, and coronary artery disease. Pro-calcitonin level was noted to be a bit elevated, hence the patient was placed empirically on antibiotics. Again the patient had no symptoms to suggest fever chills cough wheezing or hemoptysis. No BNP level noted on admission, but his troponin level was 70.3. PCR for covid 19 was negative. Review of Systems CONSTITUTIONAL: No fever, no malaise, no fatigue. HEENT: No recent visual problems or hearing problems. Denied any sore throat. CARDIOVASCULAR: As noted in HPI, patient presented with left-sided chest pain and diaphoresis. PULMONARY: As noted in HPI. GASTROINTESTINAL: No diarrhea, no nausea, no vomiting, no abdominal pain. NEUROLOGICAL: No headaches, no weakness, no numbness. HEMATOLOGICAL: Denies any bleeding or petechiae. GENITOURINARY: Denies any burning micturition, frequency, or urgency. MUSCULOSKELETAL/RHEUMATOLOGICAL: Denies any joint pain, swelling, or any muscle pain. ENDOCRINE: Denies any polyuria or polydipsia. T Past Medical History Past Medical History: Cancer, Dementia, Hearing Disorder / Deafness, Hyperli pidemia, Hypertension, Prostate Disorder Additional Past Medical History / Comment(s): Prostate cancer with radiation treatments, benign colon polyps, bilateral hearing aides. History of Any Multi-Drug Resistant Organisms: None Reported Past Surgical History: Heart Catheterization With Stent Additional Past Surgical History / Comment(s): Cystoscopy, colonoscopy with benign polypectomy, EGD as a child for foreign object, R elbow fracture with surgery, L hand injury with surgery. Past Anesthesia/Blood Transfusion Reactions: No Reported Reaction Date of Last Stent Placement:: 09/19/19 Smoking Status: Former smoker - Past Family History Father Additional Family Medical History / Comment(s): Father was an alcoholic. Mother Additional Family Medical History / Comment(s): Mother was an alcoholic Medications and Allergies Home Medications Medication Instructions Recorded Confirmed Type Atorvastatin Calcium [Lipitor] 20 mg PO HS 09/19/19 09/19/19 History Beet Root 1000mg 2,000 mg PO DAILY 09/19/19 09/19/19 History Cholecalciferol [Vitamin D3 (25 5,000 unit PO DAILY 09/19/19 09/19/19 History Mcg = 1000 Iu)] Citalopram Hydrobromide [CeleXA] 20 mg PO DAILY 09/19/19 09/19/19 History Donepezil [Aricept] 10 mg PO DAILY 09/19/19 09/19/19 History Magnesium Oxide [Mag-Ox] 800 mg PO DAILY 09/19/19 09/19/19 History Memantine HCl [Memantine HCl ER] 28 mg PO DAILY 09/19/19 09/19/19 History Tamsulosin HCl [Flomax] 0.4 mg PO DAILY 09/19/19 09/19/19 History Vitamin B Complex 1 tab PO DAILY 09/19/19 09/19/19 History amLODIPine [Norvasc] 5 mg PO DAILY 09/19/19 09/19/19 History traZODone HCL 150 mg PO HS 09/19/19 09/19/19 History Allergies Allergy/AdvReac Type Severity Reaction Status Date / Time Penicillins Allergy Rash/Hives Verified 09/19/19 11:16 Physical Exam Vitals: Vital Signs Temp Pulse Resp BP BP Pulse Ox 09/21/19 11:52 91/55 09/21/19 11:50 97/62 09/21/19 11:00 80 22 102/90 90 L 09/21/19 10:00 26 H 103/66 09/21/19 09:00 78 32 H 92 L 09/21/19 08:00 73 19 92/62 90 L 09/21/19 07:00 81 21 92/62 89 L 09/21/19 06:00 78 26 H 95/65 91 L 09/21/19 05:00 73 23 93/60 95 09/21/19 04:00 97.1 F L 82 22 88/57 91 L 09/21/19 03:00 75 23 09/21/19 02:00 78 14 96/59 09/21/19 01:00 98.2 F 77 26 H 88/61 93 L 09/21/19 00:00 75 24 91/62 88 L 09/20/19 23:00 76 18 84 L 09/20/19 22:00 78 14 89/64 91 L 09/20/19 21:00 79 28 H 105/64 90 L 09/20/19 20:00 99.3 F 84 34 H 99/69 90 L 09/20/19 19:58 91 L 09/20/19 19:28 81 16 98/63 89 L 09/20/19 19:00 88 35 H 98/78 92 L 09/20/19 18:30 84 17 98/65 91 L 09/20/19 18:00 80 34 H 100/69 90 L 09/20/19 17:30 80 32 H 94/68 90 L 09/20/19 17:00 85 25 H 119/74 90 L 09/20/19 16:30 99 24 99/65 91 L 09/20/19 16:00 79 18 109/67 92 L 09/20/19 15:30 79 27 H 105/67 90 L 09/20/19 15:00 81 28 H 101/67 93 L 09/20/19 14:30 82 26 H 105/66 93 L 09/20/19 14:00 79 27 H 114/68 92 L 09/20/19 13:30 87 25 H 102/63 90 L Intake and Output 09/20/19 09/21/19 09/21/19 22:59 06:59 14:59 Intake Total 600 Output Total 150 0 Balance 600 -150 0 Intake: IV 100 Levofloxacin 500Mg-D5w 100 Pmx 500 mg In Dextrose/ Water 1 100ml.bag @ 100 mls/hr IVPB DAILY@1999 [facility] Rx#:[id number] Oral 500 Output: Urine 150 0 Other: Voiding Method Bedside Commode Bedside Commode # Voids 0 0 1 # Bowel Movements 1 1 Weight 77.2 kg Physical Exam: Revealed a 79-year-old white male in no distress, however he is on 9 L high flow nasal cannula. Head: Atraumatic, normocephalic. HEENT:[Neck is supple.] [No neck masses.] [No thyromegaly.] [No JVD.] Chest: Symmetrical chest expansion, crackles at the bases. No rhonchi no wheezes. Cardiac Exam: [Normal S1 and S2, no S3 gallop, 2/6 systolic murmur thought the precordium. Abdomen: [Soft, nontender, no megaly, no rebound, no guarding, normal bowel sounds.] Extremities: [No clubbing, no edema, no cyanosis.] Neurological Exam: [No focal neurologic deficit.] Alert and oriented 3. Skin: No rashes. Psychiatric: Normal mood affect and normal mental status examination. Results - Laboratory Findings CBC and BMP: 09/21/19 05:02 09/21/19 05:02 PT/INR, D-dimer PT 9.8 sec (9.0-12.0) 09/19/19 08:02 INR 0.9 (<1.2) 09/19/19 08:02 Abnormal lab findings: Abnormal Labs 09/19/19 09/19/19 09/19/19 08:02 08:02 08:02 WBC 13.0 H RBC 3.97 L MCV Neutrophils # 10.6 H Monocytes # 1.1 H Sodium BUN Creatinine Glucose 133 H POC Glucose (mg/dL) AST 495 H ALT 73 H Total Creatine Kinase 2933 H* CK-MB (CK-2) 127.0 H Troponin I 70.300 H* Procalcitonin 09/19/19 09/20/19 09/20/19 10:42 04:46 04:46 WBC 18.6 H RBC 4.18 L MCV 103.2 H Neutrophils # Monocytes # Sodium 134 L BUN 27 H Creatinine 1.49 H Glucose 188 H POC Glucose (mg/dL) 131 H AST ALT Total Creatine Kinase CK-MB (CK-2) Troponin I Procalcitonin 09/20/19 09/20/19 09/20/19 19:45 19:45 19:45 WBC 19.6 H RBC 4.15 L MCV 100.6 H Neutrophils # 16.5 H Monocytes # 1.5 H Sodium 131 L BUN 37 H Creatinine 1.48 H Glucose 155 H POC Glucose (mg/dL) AST ALT Total Creatine Kinase CK-MB (CK-2) Troponin I Procalcitonin 0.23 H 09/21/19 09/21/19 05:02 05:02 WBC 18.1 H RBC 3.85 L MCV 101.7 H Neutrophils # 15.5 H Monocytes # 1.1 H Sodium 132 L BUN 43 H Creatinine 1.53 H Glucose 139 H POC Glucose (mg/dL) AST ALT Total Creatine Kinase CK-MB (CK-2) Troponin I Procalcitonin - Diagnostic Findings Chest x-ray: image reviewed (Chest x-ray as noted in HPI.) Assessment and Plan Assessment: Impression: Acute inferior wall ST elevation myocardial infarction, status post stenting of RCA. Acute pulmonary edema secondary to acute systolic congestive heart failure, ischemic cardiomyopathy. Benign essential hypertension. Dyslipidemia. History of mild dementia. Possible right lower lobe pneumonia, however the presentation is not classic of pneumonia presentation. However considering elevated pro calcitonin, would recommend empiric antibiotics as already given. Patient is presently on Levaquin. Acute kidney injury, multifactorial, I believe it is mostly related to hypotension, cardiac catheterization with contrast media, contrast induced kidney injury. Recommendation: Continue present treatment plan, Continue oxygen. Continue antibiotics empirically. Continue diuretics however monitor renal status while on high-dose diuretics. I would only give the patient 1 dose of Lasix today, and decide on a daily basis on the dose of Lasix. Continue cardiac meds, including Plavix, statins, and beta blockers. Resume home meds We'll continue to follow while in the ICU. Discussed his condition with nephrology on the case Time with Patient: Greater than 30
[2019-09-21] MEDS: ATORVASTATIN 80 MG TAB PO SCH (20:25)
[2019-09-21] MEDS: LEVOFLOXACIN 250 MG TAB PO SCH (20:26)
[2019-09-22 05:22] LABS: Basophils % (A) 0 %; Eosinophils # (A) 0.1 k/uL (0-0.7); Eosinophils % (A) 1 %; HGB 12.2 gm/dL (13.0-17.5); Lymphocytes # (A) 1.1 k/uL (1.0-4.8); Lymphocytes % (A) 7 %; MCH 34.2 pg (25.0-35.0); MCV 100.6 fL (80.0-100.0); Monocytes # (A) 1.2 k/uL (0-1.0); Monocytes % (A) 7 %; Neutrophils # (A) 14.4 k/uL (1.3-7.7); Neutrophils % (A) 84 %; Platelet Count 278 k/uL (150-450); RBC 3.58 m/uL (4.30-5.90); RDW 13.2 % (11.5-15.5); WBC 17.1 k/uL (3.8-10.6)
[2019-09-22 05:29] LABS: Calcium 8.6 mg/dL (8.4-10.2); Potassium 4.4 mmol/L (3.5-5.1)
--- NOTE | 2019-09-22 07:29 | XR ---
EXAMINATION TYPE: XR chest 1V portable DATE OF EXAM: 09/22/2019 COMPARISON: 05/07/2019 HISTORY: Shortness of breath TECHNIQUE: Single frontal view of the chest is obtained. FINDINGS: Diffuse pleural-parenchymal changes greater on the right with right-sided effusion stable. Atherosclerotic change aorta. No pneumothorax. Osseous structures stable. IMPRESSION: 1. Stable diffuse parenchymal changes correlate for diffuse pneumonia, otherwise consider CHF with pu lmonary edema.
[2019-09-22] MEDS ORDERED: FUROSEMIDE 10 MG/ML 10 ML VIAL IV STA (07:57)
[2019-09-22] MEDS: FAMOTIDINE 20 MG TAB PO SCH (08:54)
[2019-09-22] MEDS: CITALOPRAM HYDROBROMIDE 20 MG TAB PO SCH (08:54)
[2019-09-22] MEDS: HEPARIN SODIUM,PORCINE 5,000 UNIT/ML 1 ML VIAL SQ SCH ×2 (08:54→21:59)
[2019-09-22] MEDS: TAMSULOSIN 0.4 MG CAP.ER.24H PO SCH (08:55)
[2019-09-22] MEDS: CLOPIDOGREL 75 MG TAB PO SCH (08:55)
[2019-09-22] MEDS: MAGNESIUM OXIDE 400 MG TAB PO SCH (08:55)
[2019-09-22] MEDS: MEMANTINE 10 MG TAB PO SCH ×2 (08:56→21:59)
[2019-09-22] MEDS: METOPROLOL TARTRATE 12.5 MG TAB PO SCH ×2 (08:57→21:58)
--- NOTE | 2019-09-22 10:09 | P.PN ---
Subjective Progress Note Date: 09/22/19 This is a 79-year-old gentleman with history of hypertension who presented with inferior wall myocardial infarction. Patient had a cardiac catheterization and stent placement of the mid RCA. His CPK was high in the troponin was in the range of 77 on admission. His echo [place] showed an ejection fraction of 45%. Patient is complaining of some congestion and seemed to be mild short of breath. Chest x-ray showed evidence of congestive heart failure. Heart appeared to be regular. No peripheral edema. I'm going to start him on IV Lasix 40 mg and start him by mouth Lasix. We'll also give potassium supplement. Rest of the medication to be continued. We'll continue follow his input and output. Follow blood work tomorrow. Further condition depend upon the clinical course. We'll continue to monitor him in intensive care unit 09/21/2019: This patient is admitted to the hospital with inferior wall NJ, probably subacute. Patient had stent placement. His eldest was an ejection fraction of 40% to 45% with hypokinesis of the inferior wall. Patient has been short of breath. A chest x-ray showed some evidence of possible pulmonary edema and possible atypical pneumonia involving the right lower lobe. Patient does have white count elevation. Clinically he does have a slow murmur in the apical area and also left sternal border. Rule out possibility of mitral regurgitation. I'm going to repeat the echocardiogram. His urine output is fair. Pulmonary consult is requested regarding possible pneumonia. 09/22/2019: This patient is a status post subacute inferior wall NJ and stent placement. Patient is still complaining of shortness of breath and congestion. His lungs show scattered rhonchi and mild wheezing. Chest x-ray shows bilateral findings suggestive of pulmonary edema more so on the right side. Atypical pneumonia cannot be excluded. His blood pressure is running low. His creatinine is also going up. I'm going to start him on dobutamine 5 mics per KG. Patient is also on Lasix. Continue rest of the medication. His repeat echocardiogram did not reveal any significant valvular abnormalities. Patient does have systolic murmur. We'll make consider KIM examination ,if patient doesn't improve promptly Objective - Vital Signs Vital signs: Vital Signs Temp 98.0 F 09/22/19 08:00 Pulse 78 09/22/19 08:00 Resp 29 H 09/22/19 08:00 BP 86/62 09/22/19 08:00 Pulse Ox 91 L 09/22/19 08:00 Intake & Output 09/21/19 09/22/19 09/22/19 18:59 06:59 18:59 Intake Total 750 Output Total 0 125 75 Balance 0 625 -75 Weight 79.2 kg Intake: Oral 750 Output: Urine 0 125 75 Other: Voiding Method Bedside Commode Bedside Commode Bedside Commode # Voids 1 0 1 # Bowel Movements 1 - Exam GENERAL EXAM: Patient is alert and oriented and appears to be in mild respiratory distress and cough HEENT: Normocephalic. Normal reaction of pupils, equal size, normal range of extraocular motion. No erythema or exudates in the throat. NECK: No masses, no nuchal rigidity. CHEST: No chest wall deformity. LUNGS: Scattered rhonchi and wheezes HEART: S1, S2 heard. Systolic murmur heard at the apex and left sternal border ABDOMEN: No hepatosplenomegaly, normal bowel sounds, no guarding or rigidity. SKIN: No rashes CENTRAL NERVOUS SYSTEM: No focal deficits. EXTREMITIES: No cyanosis, clubbing or edema. - Labs CBC & Chem 7: 09/22/19 04:54 09/22/19 04:54 Labs: Abnormal Lab Results - Last 24 Hours (Table) 09/21/19 09/21/19 09/22/19 Range/Units 15:37 18:26 04:54 WBC 17.1 H (3.8-10.6) k/uL RBC 3.58 L (4.30-5.90) m/uL Hgb 12.2 L (13.0-17.5) gm/dL Hct 36.0 L (39.0-53.0) % MCV 100.6 H (80.0-100.0) fL Neutrophils # 14.4 H (1.3-7.7) k/uL Monocytes # 1.2 H (0-1.0) k/uL Sodium (137-145) mmol/L Chloride (98-107) mmol/L Carbon Dioxide (22-30) mmol/L BUN (9-20) mg/dL Creatinine (0.66-1.25) mg/dL Glucose (74-99) mg/dL Plasma Lactic Acid Nakul 3.9 H* 3.8 H* (0.7-2.0) mmol/L 09/22/19 Range/Units 04:54 WBC (3.8-10.6) k/uL RBC (4.30-5.90) m/uL Hgb (13.0-17.5) gm/dL Hct (39.0-53.0) % MCV (80.0-100.0) fL Neutrophils # (1.3-7.7) k/uL Monocytes # (0-1.0) k/uL Sodium 128 L (137-145) mmol/L Chloride 96 L (98-107) mmol/L Carbon Dioxide 21 L (22-30) mmol/L BUN 65 H (9-20) mg/dL Creatinine 2.31 H (0.66-1.25) mg/dL Glucose 125 H (74-99) mg/dL Plasma Lactic Acid Nakul (0.7-2.0) mmol/L Microbiology - Last 24 Hours (Table) 09/21/19 18:40 Gram Stain - Preliminary Sputum Sputum Culture - Preliminary Assessment and Plan (1) Acute transmural inferior wall NJ Current Visit: Yes Status: Acute Code(s): I21.19 - STEMI INVOLVING OTH CORONARY ARTERY OF INFERIOR WALL SNOMED Code(s): 54405034 (2) Acute combined systolic and diastolic heart failure Current Visit: Yes Status: Acute Code(s): I50.41 - ACUTE COMBINED SYSTOLIC AND DIASTOLIC (CONGESTIVE) HRT FAIL SNOMED Code(s): 856158862567667 (3) Essential hypertension Current Visit: Yes Status: Acute Code(s): I10 - ESSENTIAL (PRIMARY) HYPERTENSION SNOMED Code(s): 96576002 Plan: Chest x-ray continues to bilateral infiltrates, more so on the right side consistent with pulmonary edema. Underlying pneumonia cannot be excluded. We'll start him on IV dobutamine. His renal function is also deteriorating. Nephrology is following
[2019-09-22] MEDS: DOBUTamine DRIP 500 MG in DEXTROSE/WATER 1 250ML.BAG IV SCH (11:00)
--- NOTE | 2019-09-22 11:12 | P.PN ---
Subjective Progress Note Date: 09/22/19 Principal diagnosis: This is 79-year-old male seen in consultation because of acute kidney injury from combination off prerenal from acute IA and dye toxicity. Additionally he might have pneumonia. He was admitted with chest pain and had an acute IA. Underwent cardiac catheter ization. His creatinine went up since the procedure and his urine output has gone down. His blood pressure is in the 80s to 90s echocardiogram shows no valvular dysfunction except for mild mitral regurgitation, ejection fraction 45-50%. He does have small amount of frequent stools. Urine output is not well documented but is slow. Creatinine continues to go up. No evidence of cholesterol embolization. He was given Lasix with no significant response. A chest x-ray shows bilateral disease with possible pneumonia and additional congestive heart failure. He is carb with antibiotics. He did have is high lactic acid at 3.9 and 3.8. White count was 19,600. But he did not have any fever. He did have cough for 3-4 days with yellow expectoration prior to his admission. Objective - Vital Signs Vital signs: Vital Signs Temp 98.0 F 09/22/19 08:00 Pulse 78 09/22/19 08:00 Resp 29 H 09/22/19 08:00 BP 86/62 09/22/19 08:00 Pulse Ox 91 L 09/22/19 08:00 Intake & Output 09/21/19 09/22/19 09/22/19 18:59 06:59 18:59 Intake Total 750 Output Total 0 125 75 Balance 0 625 -75 Weight 79.2 kg Intake: Oral 750 Output: Urine 0 125 75 Other: Voiding Method Bedside Commode Bedside Commode Bedside Commode # Voids 1 0 1 # Bowel Movements 1 2 Currently on exam awake alert oriented at looks pale HEENT exam JVP is elevated 7-8 cm about sternal angle Neck is supple no facial asymmetry Lungs are significant for bilateral occasional crackles but more on the right than on the left Good air entry bilaterally Heart sounds are unremarkable for any murmur rub gallop Abdomen soft nontender nondistended Extremity exam reveals no edema Neurologically awake alert oriented - Labs CBC & Chem 7: 09/22/19 04:54 09/22/19 04:54 Labs: Abnormal Lab Results - Last 24 Hours (Table) 09/21/19 09/21/19 09/22/19 Range/Units 15:37 18:26 04:54 WBC 17.1 H (3.8-10.6) k/uL RBC 3.58 L (4.30-5.90) m/uL Hgb 12.2 L (13.0-17.5) gm/dL Hct 36.0 L (39.0-53.0) % MCV 100.6 H (80.0-100.0) fL Neutrophils # 14.4 H (1.3-7.7) k/uL Monocytes # 1.2 H (0-1.0) k/uL Sodium (137-145) mmol/L Chloride (98-107) mmol/L Carbon Dioxide (22-30) mmol/L BUN (9-20) mg/dL Creatinine (0.66-1.25) mg/dL Glucose (74-99) mg/dL Plasma Lactic Acid Nakul 3.9 H* 3.8 H* (0.7-2.0) mmol/L 09/22/19 Range/Units 04:54 WBC (3.8-10.6) k/uL RBC (4.30-5.90) m/uL Hgb (13.0-17.5) gm/dL Hct (39.0-53.0) % MCV (80.0-100.0) fL Neutrophils # (1.3-7.7) k/uL Monocytes # (0-1.0) k/uL Sodium 128 L (137-145) mmol/L Chloride 96 L (98-107) mmol/L Carbon Dioxide 21 L (22-30) mmol/L BUN 65 H (9-20) mg/dL Creatinine 2.31 H (0.66-1.25) mg/dL Glucose 125 H (74-99) mg/dL Plasma Lactic Acid Nakul (0.7-2.0) mmol/L Microbiology - Last 24 Hours (Table) 09/21/19 18:40 Gram Stain - Preliminary Sputum Sputum Culture - Preliminary Assessment and Plan Assessment: Impression 1. Acute kidney injury from combination of low blood pressure, heart attack and cardiac catheterization dated 09/18/2021 as well as pneumonia and possible congestive heart failure. Creatinine gone up to 2.31 from 1.53 yesterday. He is in ATN and therefore will not respond to Lasix 2. Hypotension. Echocardiogram done on 09/20/2019 shows 50% ejection fraction and mild mitral regurgitation 3. Possible pneumonia and congestive heart failure. 4. Covid- 19 negative. 5. Hyponatremia from acute kidney injury - sodium is 132, worsened to 128 this morning from acute kidney injury. 6. Mild degree of non-gap acidosis. Bicarb is 21 down from 24. Etiology is acute kidney injury and loose stools Commendations 1. Consider using inotropes to improve his blood pressure and mean arterial pressure. 2. Would diuresis cautiously as his blood pressure is low. 3. Watch his respiratory status closely and if necessary we can escalate his Lasix dose if it gets worse. 4. Strict I's and O's 5. He may need dialysis the next 24-48 hours. 6. Add sodium bicarb 650 3 times a day Thank you for this consultation and we'll continue to follow
--- NOTE | 2019-09-22 12:09 | P.PN ---
Subjective This is a pleasant 79 years old male with past medical history of hypertension, hyperlipidemia, dementia, prostate cancer status post radiotherapy , patient presents because of chest pain found to have STEMI, he underwent cardiac cath status post stent placement in the right coronary artery. He is in the ICU. His creatinine increased today to 1.4, WBC is high at 18.6 and 19.6 K, sodium 131, his chest x-ray showing pulmonary congestion with possible interstitial pneumonia He saturating 90s on 7 L/m oxygen via nasal cannula. Dominatrix already given 1 dose of Lasix IV and continued on 40 mg by mouth daily, 1 going to give him another dose of Lasix. Blood pressure is on the low normal but he is tachypneic at 35. A but that side nurse his breathing is little better in the evening than in the morning and he did not need BiPAP for now. He is also on aspirin and Plavix, he is on metoprolol 12.5 mg and lisinopril 2.5 mg, we going to hold lisinopril for now Also call pulmonary and nephrology consult 09/21/2019 Patient breathing easier but however his significantly tachypneic and mid 20s, he saturating 94% on 9 L oxygen via nasal cannula. His blood pressure 96/57 and heart rate 77. He still bleeding from dyspnea but no chest pain, he has little cough with clear phlegm. This morning he was trying to get out of bed to the restroom by himself when he fell on hit his head in the forehead area. Chest x-ray: Pulmonary edema, atypical pneumonia, some right lower lobe pneumonia WBC this morning is 18.1 K with slight improvement. Sodium 132, creatinine stable at 1.5. Procol stone and is elevated at 0.23 Patient is currently on by mouth Lasix, lisinopril is held, housing and residence life director recommended to continue with metoprolol 12.5, we going to check with cardiology about holding parameters. Continue with Levaquin. Ordered EKG 09/22/19 Patient awake and alert, his breathing is easier although he still complains from some chest pain with little dyspnea and the 10 cough. He is saturating 94% on 3-5 L of oxygen via nasal cannula. Rest of Vitas looks stable, however her blood pressure is on the low side, this morning was 78/56- 94/59 WBC is 17.1 K, hemoglobin 12.2, sodium 128, creatinine went up to 2.3. Lactic acid is elevated at 3.8. ProBNP is 41 500 sputum culture is pending. Chest x-ray showing stable changes with diffuse parenchymal changes or diffuse pneumonia or CHF/pulmonary edema Cardiology started the patient on dobutamine drip, also he got 1 dose of Lasix 60 mg IV 1 and on sodium bicarbonate tablets. Patient also is on Levaquin 250 mg by mouth daily, which is renal dose. Pulmonary nephrology and cardiology teams on the case Review of systems CONSTITUTIONAL: No fever, no malaise, no fatigue. HEENT: No recent visual problems or hearing problems. Denied any sore throat. CARDIOVASCULAR: no palpitations, no syncope. PULMONARY: no hemoptysis. GASTROINTESTINAL: No diarrhea, no nausea, no vomiting, no abdominal pain. Normoactive bowel sounds. NEUROLOGICAL: No headaches, no weakness, no numbness. HEMATOLOGICAL: Denies any bleeding or petechiae. GENITOURINARY: Denies any burning micturition, frequency, or urgency. MUSCULOSKELETAL/RHEUMATOLOGICAL: Denies any joint pain, swelling, or any muscle pain. ENDOCRINE: Denies any polyuria or polydipsia. Active Medications Generic Name Dose Route Start Last Admin Trade Name Freq PRN Reason Stop Dose Admin Al Hydroxide/Mg Hydroxide 30 ml 09/19/19 10:03 Maalox PO Q4HR PRN Heartburn Atorvastatin Calcium 80 mg 09/19/19 21:00 09/21/19 20:25 Lipitor PO 80 mg HS RJ Administration Atropine Sulfate 0.5 mg 09/19/19 10:03 Atropine IV ONCE PRN Symptomatic Bradycardia Citalopram Hydrobromide 20 mg 09/20/19 09:00 09/22/19 08:54 Celexa PO 20 mg DAILY RJ Administration Clopidogrel Bisulfate 75 mg 09/20/19 09:00 09/22/19 08:55 Plavix PO 75 mg DAILY RJ Administration Famotidine 20 mg 09/21/19 10:00 09/22/19 08:54 Pepcid PO 20 mg DAILY RJ Administration Heparin Sodium (Porcine) 5,000 unit 09/20/19 21:00 09/22/19 08:54 Heparin SQ 5,000 unit Q12HR RJ Administration Dobutamine HCl/Dextrose 500 mg 250 mls @ 11.88 mls/hr 09/22/19 10:45 / IV Solution IV .Q21H3M RJ 5 MCG/KG/MIN Levofloxacin 250 mg 09/21/19 21:00 09/21/19 20:26 Levaquin PO 250 mg HS RJ Administration Magnesium Oxide 800 mg 09/20/19 09:00 09/22/19 08:55 Mag-Ox PO 800 mg DAILY RJ Administration Memantine 10 mg 09/20/19 09:00 09/22/19 08:56 Namenda PO 10 mg BID RJ Administration Metoprolol Tartrate 12.5 mg 09/19/19 21:00 09/22/19 08:57 Lopressor PO 12.5 mg BID RJ Administration Naloxone HCl 0.2 mg 09/19/19 08:09 Narcan IV Q2M PRN Opioid Reversal Nitroglycerin 0.4 mg 09/19/19 10:03 Nitrostat SUBLINGUAL Q5M PRN Chest Pain Sodium Bicarbonate 650 mg 09/22/19 11:15 Sodium Bicarbonate Tab PO TID RJ Tamsulosin HCl 0.4 mg 09/20/19 09:00 09/22/19 08:55 Flomax PO 0.4 mg DAILY RJ Administration Trazodone HCl 150 mg 09/19/19 11:24 Desyrel PO HS PRN Insomnia Zolpidem Tartrate 5 mg 09/19/19 10:03 Ambien PO HS PRN Insomnia Objective - Vital Signs Vital signs: Vital Signs Temp 98.0 F 09/22/19 08:00 Pulse 73 09/22/19 11:00 Resp 26 H 09/22/19 11:00 BP 78/56 09/22/19 11:00 Pulse Ox 94 L 09/22/19 11:00 Intake & Output 09/21/19 09/22/19 09/22/19 18:59 06:59 18:59 Intake Total 750 150 Output Total 0 125 75 Balance 0 625 75 Weight 79.2 kg Intake: Oral 750 150 Output: Urine 0 125 75 Other: Voiding Method Bedside Commode Bedside Commode Bedside Commode # Voids 1 0 1 # Bowel Movements 1 2 - Exam GENERAL: The patient is alert and oriented x3, not in any acute distress. Well developed, well nourished. HEENT: Pupils are round and equally reacting to light. EOMI. No scleral icterus. No conjunctival pallor. Normocephalic, atraumatic. No pharyngeal erythema. No thyromegaly. CARDIOVASCULAR: S1 and S2 present. No murmurs, rubs, or gallops. -PULMONARY: Chest is clear to auscultation, bilateral basal crepitation ABDOMEN: Soft, nontender, nondistended, normoactive bowel sounds. No palpable organomegaly. MUSCULOSKELETAL: No joint swelling or deformity. EXTREMITIES: No cyanosis, clubbing, or pedal edema. NEUROLOGICAL: Gross neurological examination did not reveal any focal deficits. SKIN: No rashes. no petechiae. - Labs CBC & Chem 7: 09/22/19 04:54 09/22/19 04:54 Labs: Abnormal Lab Results - Last 24 Hours (Table) 09/21/19 09/21/19 09/22/19 Range/Units 15:37 18:26 04:54 WBC 17.1 H (3.8-10.6) k/uL RBC 3.58 L (4.30-5.90) m/uL Hgb 12.2 L (13.0-17.5) gm/dL Hct 36.0 L (39.0-53.0) % MCV 100.6 H (80.0-100.0) fL Neutrophils # 14.4 H (1.3-7.7) k/uL Monocytes # 1.2 H (0-1.0) k/uL Sodium (137-145) mmol/L Chloride (98-107) mmol/L Carbon Dioxide (22-30) mmol/L BUN (9-20) mg/dL Creatinine (0.66-1.25) mg/dL Glucose (74-99) mg/dL Plasma Lactic Acid Nakul 3.9 H* 3.8 H* (0.7-2.0) mmol/L 09/22/19 Range/Units 04:54 WBC (3.8-10.6) k/uL RBC (4.30-5.90) m/uL Hgb (13.0-17.5) gm/dL Hct (39.0-53.0) % MCV (80.0-100.0) fL Neutrophils # (1.3-7.7) k/uL Monocytes # (0-1.0) k/uL Sodium 128 L (137-145) mmol/L Chloride 96 L (98-107) mmol/L Carbon Dioxide 21 L (22-30) mmol/L BUN 65 H (9-20) mg/dL Creatinine 2.31 H (0.66-1.25) mg/dL Glucose 125 H (74-99) mg/dL Plasma Lactic Acid Nakul (0.7-2.0) mmol/L Microbiology - Last 24 Hours (Table) 09/21/19 18:40 Gram Stain - Preliminary Sputum Sputum Culture - Preliminary Assessment and Plan Assessment: STEMI status post cardiac cath and stent placement in the RCA Acute hypoxic respiratory failure suspicious for pulmonary edema versus pneumonia Acute kidney injury Hypotension Fall, with no dizziness or syncope Possible right lower lobe pneumonia, versus atypical pneumonia Hypertension Hyperlipidemia History of prostate cancer status post radiotherapy Plan: This is a pleasant 79 years old male who presents with STEMI, complicated by respiratory failure and a KI. Continue with aspirin and Plavix, housing and residence life director following the case closely. Continue with diuretics. Consult digital music instructor and pump installer. Monitor creatinine and electrolytes. Start the patient on Levaquin. Dobutamine was started by housing and residence life director team Labs and medication were reviewed.. Continue same treatment. Continue with symptomatic treatment. Resume home medication. Monitor lytes and vitals. DVT and GI prophylaxis. Further recommendations of the clinical course of the patient DVT prophylaxis: Subcutaneous heparin GI Prophylaxis: Pepcid PT/OT: Pending Prognosis is guarded
[2019-09-22] MEDS: SODIUM BICARBONATE TAB 650 MG TAB PO SCH ×3 (13:18→21:59)
--- NOTE | 2019-09-22 13:35 | P.PN ---
Subjective Progress Note Date: 09/22/19 Principal diagnosis: Acute ST elevation myocardial infarction, and acute systolic congestive heart failure This is a 79-year-old white male with history of hypertension, dyslipidemia, dementia, history of prostate cancer and previous radiation treatment, patient presented to the ER on 09/19/19, his chief complaint was mostly left-sided chest pain, started that same day, and it was at rest. It was associated with diaphoresis and nausea. Patient was found to have ST elevation in the inferior leads, and significantly elevated troponin. Underwent cardiac catheterization, and stenting of the RCA. Echocardiogram showed moderate severe LV dysfunction. And mild pulmonary hypertension. Initial chest x-ray on admission showed interstitial alveolar edema, and over the last 24 hours, his chest x-ray significantly worsened, more interstitial edema is noted, and his O2 requirement went up to 9 L. Patient was transferred to the ICU, and I was asked to see him on consultation. Chest x-ray clearly is suggestive of pulmonary edema, of course cannot rule out underlying pneumonia in the right lower lobe. However on presentation his presentation was mostly a presentation of chest pain, and coronary artery disease. Pro-calcitonin level was noted to be a bit elevated, hence the patient was placed empirically on antibiotics. Again the patient had no symptoms to suggest fever chills cough wheezing or hemoptysis. No BNP level noted on admission, but his troponin level was 70.3. PCR for covid 19 was negative. Patient was reevaluated today on 09/22/19, patient is about the same, continues to have slight worsening in his shortness of breath, remains on 5 L nasal cannula, high flow. O2 saturation is marginal, chest x-ray is a bit worse, and it is more consistent with interstitial edema/pulmonary edema, and his BNP level is extremely elevated. Of course underlying pneumonia is not entirely ruled out, but again I feel it is very much less likely based on his presentation as the patient presented with acute OR and went on to develop pulmonary edema with no symptoms to suggest pneumonia and no fever no chills and no cough prior to his presentation. Patient is not improving with Lasix, and whether the patient will benefit from inotropes, I will let the stretching machine tender frame decide regarding possible inotropes. In the meantime I have recommended empiric antibiotics for his potential pneumonia and again clinically I feel this is less likely. The only concern is that his pro-calcitonin level is a bit elevated. But again his BNP is significantly elevated. Blood pressure remains marginal, patient was placed on Dobutrex by cardiology earlier today. He may even require pressors. And he was seen by nephrology were and sodium bicarb was added, and his renal funct ioning continues to work get worse, patient will likely end up being dialyzed Objective - Vital Signs Vital signs: Vital Signs Temp 98.0 F 09/22/19 08:00 Pulse 73 09/22/19 11:00 Resp 26 H 09/22/19 11:00 BP 78/56 09/22/19 11:00 Pulse Ox 94 L 09/22/19 11:00 Intake & Output 09/21/19 09/22/19 09/22/19 18:59 06:59 18:59 Intake Total 750 150 Output Total 0 125 75 Balance 0 625 75 Weight 79.2 kg Intake: Oral 750 150 Output: Urine 0 125 75 Other: Voiding Method Bedside Commode Bedside Commode Bedside Commode # Voids 1 0 1 # Bowel Movements 1 2 - Exam Physical Exam: Revealed a 79-year-old white male in no distress, however he is on 5 L high flow nasal cannula. Head: Atraumatic, normocephalic. HEENT:[Neck is supple.] [No neck masses.] [No thyromegaly.] [No JVD.] Chest: Symmetrical chest expansion, crackles at the bases. No rhonchi no wheezes. Cardiac Exam: [Normal S1 and S2, no S3 gallop, 2/6 systolic murmur thought the precordium. Abdomen: [Soft, nontender, no megaly, no rebound, no guarding, normal bowel sounds.] Extremities: [No clubbing, no edema, no cyanosis.] Neurological Exam: [No focal neurologic deficit.] Alert and oriented 3. Skin: No rashes. Psychiatric: Normal mood affect and normal mental status examination. - Labs CBC & Chem 7: 09/22/19 04:54 09/22/19 04:54 Labs: Abnormal Lab Results - Last 24 Hours (Table) 09/21/19 09/21/19 09/22/19 Range/Units 15:37 18:26 04:54 WBC 17.1 H (3.8-10.6) k/uL RBC 3.58 L (4.30-5.90) m/uL Hgb 12.2 L (13.0-17.5) gm/dL Hct 36.0 L (39.0-53.0) % MCV 100.6 H (80.0-100.0) fL Neutrophils # 14.4 H (1.3-7.7) k/uL Monocytes # 1.2 H (0-1.0) k/uL Sodium (137-145) mmol/L Chloride (98-107) mmol/L Carbon Dioxide (22-30) mmol/L BUN (9-20) mg/dL Creatinine (0.66-1.25) mg/dL Glucose (74-99) mg/dL Plasma Lactic Acid Nakul 3.9 H* 3.8 H* (0.7-2.0) mmol/L 09/22/19 Range/Units 04:54 WBC (3.8-10.6) k/uL RBC (4.30-5.90) m/uL Hgb (13.0-17.5) gm/dL Hct (39.0-53.0) % MCV (80.0-100.0) fL Neutrophils # (1.3-7.7) k/uL Monocytes # (0-1.0) k/uL Sodium 128 L (137-145) mmol/L Chloride 96 L (98-107) mmol/L Carbon Dioxide 21 L (22-30) mmol/L BUN 65 H (9-20) mg/dL Creatinine 2.31 H (0.66-1.25) mg/dL Glucose 125 H (74-99) mg/dL Plasma Lactic Acid Nakul (0.7-2.0) mmol/L Microbiology - Last 24 Hours (Table) 09/21/19 18:40 Gram Stain - Preliminary Sputum Sputum Culture - Preliminary Assessment and Plan Assessment: Impression: Acute inferior wall ST elevation myocardial infarction, status post stenting of RCA. Acute pulmonary edema secondary to acute systolic congestive heart failure, ischemic cardiomyopathy. ProBNP level is over 41,500 Benign essential hypertension. Dyslipidemia. History of mild dementia. Possible right lower lobe pneumonia, however the presentation is not classic of pneumonia presentation. However considering elevated pro calcitonin, hence will continue Levaquin. Acute kidney injury, multifactorial, I believe it is mostly related to hypotension, cardiac catheterization with contrast media, contrast induced kidney injury. Recommendation: Continue present treatment plan, Agree with inotropes. Continue oxygen. Titrate accordingly. Continue antibiotics empirically. Continue diuretics , however if not responding with worsening renal profile, patient may end up requiring dialysis in the next 24-48 hours Continue cardiac meds, including Plavix, statins, and beta blockers. We'll continue to follow while in the ICU. Prognosis is definitely guarded. Time with Patient: Less than 30
[2019-09-22] MEDS ORDERED: DILTIAZEM DRIP BOLUS FROM BAG 1 MG SOLN IV STA (18:23)
[2019-09-22] MEDS: DILTIAZEM 125 MG in SODIUM CHLORIDE 0.9% 100 ML IV SCH (19:03)
[2019-09-22] MEDS ORDERED: ACETAMINOPHEN TAB 325 MG TAB PO STA (21:32)
[2019-09-22] MEDS: ATORVASTATIN 80 MG TAB PO SCH (21:59)
[2019-09-22] MEDS: LEVOFLOXACIN 250 MG TAB PO SCH (21:59)
[2019-09-23 05:44] LABS: Basophils % (A) 0 %; Eosinophils # (A) 0.2 k/uL (0-0.7); Eosinophils % (A) 1 %; HCT 34.3 % (39.0-53.0); HGB 11.8 gm/dL (13.0-17.5); Lymphocytes # (A) 1.1 k/uL (1.0-4.8); Lymphocytes % (A) 8 %; MCHC 34.4 g/dL (31.0-37.0); MCV 99.1 fL (80.0-100.0); Mean Platelet Volume 8.1; Monocytes % (A) 7 %; Neutrophils % (A) 83 %; Platelet Count 299 k/uL (150-450); RBC 3.47 m/uL (4.30-5.90); RDW 13.2 % (11.5-15.5); WBC 14.6 k/uL (3.8-10.6)
[2019-09-23 05:50] LABS: Calcium 8.3 mg/dL (8.4-10.2); Potassium 4.2 mmol/L (3.5-5.1)
[2019-09-23] MEDS ORDERED: DOBUTamine DRIP for NUC MED 500 MG in DEXTROSE/WATER 1 250ML.BAG IV ONE (06:00)
--- NOTE | 2019-09-23 07:31 | XR ---
EXAMINATION TYPE: XR chest 1V portable DATE OF EXAM: 09/23/2019 HISTORY: Shortness of breath. COMPARISON: 09/22/2019 TECHNIQUE: Single view of the chest is submitted. Artifact limits evaluation of the upper chest. FINDINGS: Demonstrated are scattered senescent parenchymal change. Stable right lower lobe infiltrate and/or atelectasis with pleural effusion. Pulmonary venous congest ion has improved. The heart is stable. Hilar and mediastinal structures are within normal limits. Degenerative changes are seen of the dorsal spine. IMPRESSION: 1. Stable right lower lobe infiltrate and/or atelectasis with pleural effusion. Pulmonary venous con gestion has improved.
[2019-09-23] MEDS: HEPARIN SODIUM,PORCINE 5,000 UNIT/ML 1 ML VIAL SQ SCH (08:46)
[2019-09-23] MEDS: FAMOTIDINE 20 MG TAB PO SCH (08:47)
[2019-09-23] MEDS: CLOPIDOGREL 75 MG TAB PO SCH (08:47)
[2019-09-23] MEDS: SODIUM BICARBONATE TAB 650 MG TAB PO SCH ×3 (08:47→20:37)
[2019-09-23] MEDS: MAGNESIUM OXIDE 400 MG TAB PO SCH (08:47)
[2019-09-23] MEDS: TAMSULOSIN 0.4 MG CAP.ER.24H PO SCH (08:47)
[2019-09-23] MEDS: CITALOPRAM HYDROBROMIDE 20 MG TAB PO SCH (08:47)
[2019-09-23] MEDS: MEMANTINE 10 MG TAB PO SCH ×2 (09:22→20:36)
[2019-09-23] MEDS ORDERED: HEPARIN SODIUM,PORCINE 5,000 UNIT/ML 1 ML VIAL IV PRN (10:19)
[2019-09-23] MEDS ORDERED: HEPARIN SODIUM,PORCINE 5,000 UNIT/ML 1 ML VIAL IV ONE (10:19)
[2019-09-23] MEDS: PSYLLIUM HUSK 100% 6 GM PACKET PO SCH (11:23)
[2019-09-23] MEDS: HEPARIN SOD,PORK IN 0.45% NACL 25,000 UNIT in 0.45% NACL 1 250ML.BAG IV SCH (12:03)
--- NOTE | 2019-09-23 12:04 | PN ---
PROGRESS NOTE PULMONARY/CRITICAL CARE PROGRESS NOTE: DATE OF SERVICE: 09/23/2019 This is a 79-year-old male admitted on September [address]-segment elevation myocardial infarction. He had a stent placed in the right coronary artery. The patient was admitted with a diagnosis of heart failure, hypoxemia, and atrial fibrillation. Currently doing much better. He is on 3 L nasal cannula. He is receiving IV dobutamine at 3.5 mcg/kg per minute. The Cardizem drip was on hold, but was restarted this morning at 5 mg an hour by Christian, the nurse. Currently, the patient has no particular complaints. He denies any chest pain or chest discomfort. He is not short of breath. He denies any fever or chills. Denies any nausea, vomiting, diarrhea, or abdominal pain. Current vital signs are reviewed, temperature 98.1, heart rate 76, respiratory rate 22, blood pressure 105/70, mean 81; 3 L saturation 94%. Appears in no acute distress. HEENT: Examination is grossly unremarkable. Mucous membranes are moist. No oral lesions. NECK: Supple. Full range of motion. No adenopathy or thyromegaly. Neck veins are flat. CARDIOVASCULAR: Examination reveals regular rhythm and rate. Heart rate 75 beats per minute. S1, S2 normal. No murmur. LUNGS: Reveal some mild crackles bilaterally. A few scattered rhonchi. No wheezes. Breath sounds equal. ABDOMEN: Soft, bowel sounds are heard. EXTREMITIES: Intact. No cyanosis, clubbing, or edema. SKIN: Without rash. NEUROLOGIC: Examination is nonfocal. White count 14.6, hemoglobin 11.8, hematocrit 34.3, platelet count 299,000, sodium 126, potassium 4.2, chloride 97, CO2 is 16 anion gap is 13. BUN and creatinine were 86 and 2.32. Lactic acid when last checked was 3.8. N terminal proBNP 41,500. Microbiologic studies are negative. Chest x-ray is consistent with mild fluid overload. There is also an infiltrate in the right lower lobe. This could be consistent with atelectasis and/or pneumonia and/or pleural effusion. Overall, the chest x-ray has improved. CURRENT MEDICATIONS: Reviewed. Currently, the patient is on Lipitor, atropine, Cardizem drip, Celexa, Plavix, dobutamine, Pepcid, subcu heparin, Levaquin, Maalox, Mag-Ox, Namenda, metoprolol, Narcan, sublingual nitroglycerin, bicarbonate tablets, Flomax, trazodone, and Ambien. ASSESSMENT: 1. Acute inferior wall ST-segment elevation myocardial infarction, status post stenting of the right coronary artery. 2. Acute pulmonary edema secondary to acute systolic congestive heart failure and ischemic cardiomyopathy. 3. Benign essential hypertension. 4. Hyperlipidemia. 5. History of mild dementia. 6. Possible right lower lobe pneumonia. 7. Acute kidney injury. PLAN: Currently, the patient seems to be doing better. He has been titrated down to 3 L nasal cannula. He is receiving IV dobutamine at 2.5 mcg/kg per minute. The Cardizem drip was held, but now is restarted at 5 mg an hour. Medications are reviewed. Labs are reviewed. Chest x-ray is improved. Will continue on antibiotics. Medications are reviewed. Unnecessary medications are discontinued. MMODL / IJN: [id number] /
[2019-09-23] MEDS: METOPROLOL TARTRATE 12.5 MG TAB PO SCH ×2 (12:05→20:36)
[2019-09-23 12:08] LABS: INR 1.1 (<1.2); Prothrombin Time 11.4 sec (9.0-12.0)
[2019-09-23 12:32] LABS: Calcium 8.1 mg/dL (8.4-10.2); Potassium 4.1 mmol/L (3.5-5.1)
--- NOTE | 2019-09-23 14:10 | PN ---
PROGRESS NOTE Patient is seen for followup for acute kidney injury. Patient has been started on dobutamine. His urine output is not accurately charted. However, he did void 160 mL today. Patient's blood pressure has been stable. No episodes of hypotension. However, I do see a systolic pressure of 97 mmHg earlier today. Renal function is about the same with creatinine at 2.3-2.2 mg/dL. Lactic acid was elevated at 3.8. I do not see a repeat level drawn. Patient is comfortable. He is not short of breath. PHYSICAL EXAMINATION: Blood pressure 102/59, heart rate 81 per minute, he is afebrile. Examination of the heart S1, S2. Examination of the lungs, decreased breath sounds at the bases. Abdomen is soft, nontender. Examination of the lower extremities shows no significant edema. LABS: Show sodium 126, potassium 4.2, chloride 97, BUN 86, creatinine 2.32, hemoglobin 11.8 g/dL. ASSESSMENT: 1. Acute kidney injury ATN secondary to hemodynamic instability as well as contrast nephropathy. Currently nonoliguric; however, urine output is on the lower side. We can continue with the dobutamine and continue off IV fluids and place Escobar catheter if the patient does not void again this shift. 2. Status post acute DE, status post cardiac catheterization, coronary stent placement. 3. Cardiomyopathy, ejection fraction 45% to 50%. 4. Possible pneumonia maintained on empiric antibiotics. 5. Hyponatremia associated with renal failure and hypotonic fluid with dobutamine. Continue with the sodium bicarb and repeat electrolytes at noon. 6. Metabolic acidosis maintained on oral sodium bicarb, mainly non gap secondary to renal failure as well as diarrhea. PLAN: Replace Escobar catheter if the patient does not void to record accurate Is and Os and continue off IV fluids for now. Continue to avoid nephrotoxic agents. Avoid hypotension. MMODL / IJN: [id number] /
--- NOTE | 2019-09-23 15:38 | P.PN ---
Subjective 79 years old male with past medical history of hypertension, hyperlipidemia, dementia, prostate cancer status post radiotherapy , patient presents because of chest pain found to have STEMI, he underwent cardiac cath status post stent placement in the right coronary artery. He is in the ICU. His creatinine increased today to 1.4, WBC is high at 18.6 and 19.6 K, sodium 131, his chest x-ray showing pulmonary congestion with possible interstitial pneumonia He saturating 90s on 7 L/m oxygen via nasal cannula. Ops Manager already given 1 dose of Lasix IV and continued on 40 mg by mouth daily, 1 going to give him another dose of Lasix. Blood pressure is on the low normal but he is tachypneic at 35. A but that side nurse his breathing is li ttle better in the evening than in the morning and he did not need BiPAP for now. He is also on aspirin and Plavix, he is on metoprolol 12.5 mg and lisinopril 2.5 mg, we going to hold lisinopril for now Also call pulmonary and nephrology consult 09/21/2019 Patient breathing easier but however his significantly tachypneic and mid 20s, he saturating 94% on 9 L oxygen via nasal cannula. His blood pressure 96/57 and heart rate 77. He still bleeding from dyspnea but no chest pain, he has little cough with clear phlegm. This morning he was trying to get out of bed to the restroom by himself when he fell on hit his head in the forehead area. Chest x-ray: Pulmonary edema, atypical pneumonia, some right lower lobe pneumonia WBC this morning is 18.1 K with slight improvement. Sodium 132, creatinine stable at 1.5. Procol stone and is elevated at 0.23 Patient is currently on by mouth Lasix, lisinopril is held, grocery store courtesy clerk recommended to continue with metoprolol 12.5, we going to check with cardiology about holding parameters. Continue with Levaquin. Ordered EKG 09/22/19 Patient awake and alert, his breathing is easier although he still complains from some chest pain with little dyspnea and the 10 cough. He is saturating 94% on 3-5 L of oxygen via nasal cannula. Rest of Vitas looks stable, however her blood pressure is on the low side, this morning was 78/56- 94/59 WBC is 17.1 K, hemoglobin 12.2, sodium 128, creatinine went up to 2.3. Lactic acid is elevated at 3.8. ProBNP is 41 500 sputum culture is pending. Chest x-ray showing stable changes with diffuse parenchymal changes or diffuse pneumonia or CHF/pulmonary edema Cardiology started the patient on dobutamine drip, also he got 1 dose of Lasix 60 mg IV 1 and on sodium bicarbonate tablets. Patient also is on Levaquin 250 mg by mouth daily, which is renal dose. Pulmonary nephrology and cardiology teams on the case 09/23/2019 Patient is still complaining of shortness of breath patient has significant rhonchi streaking heart failure exacerbation patient is presently on dobutamine drip does have atrial fibrillation for which patient is on Cardizem, patient is still hyponatremic receiving sodium bicarbonate tablets is also on Lasix, patient is on metoprolol as well. Patient was started on IV heparin. We will d yspnea Cardizem as it decreases as it [facility] heart failure. Nephrology is following the patient patient probably has hypovolemic hyponatremia Constitutional: Denied any fatigue denied any fever. Cardio vascular: denied any chest pain, palpitations Gastrointestinal denied any nausea vomiting Pulmonary: Patient is still not feeling better still short of breath Neurologic denied any new focal deficits All inpatient medications were reviewed and appropriate changes in these medications as dictated in the interval history and assessment and plan. Objective - Vital Signs Vital signs: Vital Signs Temp 97.5 F L 09/23/19 12:00 Pulse 84 09/23/19 13:00 Resp 24 09/23/19 13:00 BP 95/60 09/23/19 13:00 Pulse Ox 90 L 09/23/19 13:00 Intake & Output 09/22/19 09/23/19 09/23/19 18:59 06:59 18:59 Intake Total 277.82 340 190 Output Total 225 90 290 Balance 52.82 250 -100 Weight 79.6 kg Intake: IV 60 90 70 0.9 60 90 70 Intake, IV Titration 17.82 Amount DOBUTamine DRIP 500 mg In 17.82 Dextrose/Water 1 250ml. bag @ 2.5 MCG/KG/MIN 5.94 mls/hr IV .Q24H [facility] Rx#: [id number] Oral 200 120 Blood Product 250 Output: Urine 225 90 290 Other: Voiding Method Bedside Commode Bedside Commode Bedside Commode # Voids 1 0 0 # Bowel Movements 1 2 2 - Exam GENERAL: The patient is alert and oriented x3, not in any acute distress. Well developed, well nourished. HEENT: Pupils are round and equally reacting to light. EOMI. No scleral icterus. No conjunctival pallor. Normocephalic, atraumatic. No pharyngeal erythema. No thyromegaly. CARDIOVASCULAR: S1 and S2 present. No murmurs, rubs, or gallops. Does have elevated JVD -PULMONARY: Diffuse bilateral crackles ABDOMEN: Soft, nontender, nondistended, normoactive bowel sounds. No palpable organomegaly. MUSCULOSKELETAL: No joint swelling or deformity. EXTREMITIES: No cyanosis, clubbing, or pedal edema. NEUROLOGICAL: Gross neurological examination did not reveal any focal deficits. SKIN: No rashes. no petechiae. - Labs CBC & Chem 7: 09/23/19 05:13 09/23/19 11:37 Labs: Abnormal Lab Results - Last 24 Hours (Table) 09/23/19 09/23/19 09/23/19 Range/Units 05:13 05:13 11:37 WBC 14.6 H (3.8-10.6) k/uL RBC 3.47 L (4.30-5.90) m/uL Hgb 11.8 L (13.0-17.5) gm/dL Hct 34.3 L (39.0-53.0) % Neutrophils # 12.0 H (1.3-7.7) k/uL Sodium 126 L 127 L (137-145) mmol/L Chloride 97 L 94 L (98-107) mmol/L Carbon Dioxide 16 L 19 L (22-30) mmol/L BUN 86 H 85 H (9-20) mg/dL Creatinine 2.32 H 2.27 H (0.66-1.25) mg/dL Glucose 127 H 143 H (74-99) mg/dL Calcium 8.3 L 8.1 L (8.4-10.2) mg/dL Microbiology - Last 24 Hours (Table) 09/21/19 18:40 Gram Stain - Final Sputum Sputum Culture - Final Assessment and Plan Plan: -STEMI status post cardiac cath and stent placement in the RCA Acute hypoxic respiratory failure secondary to congestive heart failure because systolic dysfunction with the acute exacerbation -Cardiac shock: Continue with the dobutamine, Cardizem will be discontinued, -New-onset atrial fibrillation continue with heparin continue with beta zahida patient was started on amiodarone if he goes back into A. fib, unfortunately we cannot use digoxin because of his acute renal failure Acute kidney injury prerenal azotemia secondary to heart failure exacerbation -Hypervolemic hyponatremia secondary to heart failure Hypotension Fall, with no dizziness or syncope -Patient is on levofloxacin because of possibly of pneumonia Hypertension Hyperlipidemia History of prostate cancer status post radiotherapy
--- NOTE | 2019-09-23 15:58 | P.PN ---
Subjective Progress Note Date: 09/23/19 This is a 79-year-old gentleman with history of hypertension who presented with inferior wall myocardial infarction. Patient had a cardiac catheterization and stent placement of the mid RCA. His CPK was high in the troponin was in the range of 77 on admission. His echo Cardigan showed an ejection fraction of 45%. Patient is complaining of some congestion and seemed to be mild short of breath. Chest x-ray showed evidence of congestive heart failure. Heart appeared to be regular. No peripheral edema. I'm going to start him on IV Lasix 40 mg and start him by mouth Lasix. We'll also give potassium supplement. Rest of the medication to be continued. We'll continue follow his input and output. Follow blood work tomorrow. Further condition depend upon the clinical course. We'll continue to monitor him in intensive care unit 09/21/2019: This patient is admitted to the hospital with inferior wall [place], probably subacute. Patient had stent placement. His eldest was an ejection fraction of 40% to 45% with hypokinesis of the inferior wall. Patient has been short of breath. A chest x-ray showed some evidence of possible pulmonary edema and possible atypical pneumonia involving the right lower lobe. Patient does have white count elevation. Clinically he does have a slow murmur in the apical area and also left sternal border. Rule out possibility of mitral regurgitation. I'm going to repeat the echocardiogram. His urine output is fair. Pulmonary consult is requested regarding possible pneumonia. 09/22/2019: This patient is a status post subacute inferior wall [place] and stent placement. Patient is still complaining of shortness of breath and congestion. His lungs show scattered rhonchi and mild wheezing. Chest x-ray shows bilateral findings suggestive of pulmonary edema more so on the right side. Atypical pneumonia cannot be excluded. His blood pressure is running low. His creatinine is also going up. I'm going to start him on dobutamine 5 mics per KG. Patient is also on Lasix. Continue rest of the medication. His repeat echocardiogram did not reveal any significant valvular abnormalities. Patient does have systolic murmur. We'll make consider KIM examination ,if patient doesn't improve promptly 09/23/2019: This patient is status post subacute inferior wall [place] and stent placement of the RCA. Patient hasn't been having good urinary output. He s eemed to have acute tubular necrosis. He was started on dobutamine IV. There is some pickup in the urinary output. Patient comes is not feeling well. His chest x-ray showed some improvement in the vascular congestion. There is infiltrated in the right base which could be pneumonia. His her empirically on antibiotics. Patient is being followed by nephrology. We'll continue monitor his renal functions. Further recommendations depend upon critical course. Clinically patient has a systolic murmur. However echocardiogram did not show any significant valvular abnormalities. He patient condition doesn't improve, may consider KIM examination Objective - Vital Signs Vital signs: Vital Signs Temp 97.5 F L 09/23/19 12:00 Pulse 84 09/23/19 13:00 Resp 24 09/23/19 13:00 BP 95/60 09/23/19 13:00 Pulse Ox 90 L 09/23/19 13:00 Intake & Output 09/22/19 09/23/19 09/23/19 18:59 06:59 18:59 Intake Total 277.82 340 190 Output Total 225 90 290 Balance 52.82 250 -100 Weight 79.6 kg Intake: IV 60 90 70 0.9 60 90 70 Intake, IV Titration 17.82 Amount DOBUTamine DRIP 500 mg In 17.82 Dextrose/Water 1 250ml. bag @ 2.5 MCG/KG/MIN 5.94 mls/hr IV .Q24H [facility] Rx#: [id number] Oral 200 120 Blood Product 250 Output: Urine 225 90 290 Other: Voiding Method Bedside Commode Bedside Commode Bedside Commode # Voids 1 0 0 # Bowel Movements 1 2 2 - Exam GENERAL EXAM: Patient is alert and oriented and appears to be in mild respiratory distress and cough HEENT: Normocephalic. Normal reaction of pupils, equal size, normal range of extraocular motion. No erythema or exudates in the throat. NECK: No masses, no nuchal rigidity. CHEST: No chest wall deformity. LUNGS: Scattered rhonchi and wheezes HEART: S1, S2 heard. Systolic murmur heard at the apex and left sternal border ABDOMEN: No hepatosplenomegaly, normal bowel sounds, no guarding or rigidity. SKIN: No rashes CENTRAL NERVOUS SYSTEM: No focal deficits. EXTREMITIES: No cyanosis, clubbing or edema. - Labs CBC & Chem 7: 09/23/19 05:13 09/23/19 11:37 Labs: Abnormal Lab Results - Last 24 Hours (Table) 09/23/19 09/23/19 09/23/19 Range/Units 05:13 05:13 11:37 WBC 14.6 H (3.8-10.6) k/uL RBC 3.47 L (4.30-5.90) m/uL Hgb 11.8 L (13.0-17.5) gm/dL Hct 34.3 L (39.0-53.0) % Neutrophils # 12.0 H (1.3-7.7) k/uL Sodium 126 L 127 L (137-145) mmol/L Chloride 97 L 94 L (98-107) mmol/L Carbon Dioxide 16 L 19 L (22-30) mmol/L BUN 86 H 85 H (9-20) mg/dL Creatinine 2.32 H 2.27 H (0.66-1.25) mg/dL Glucose 127 H 143 H (74-99) mg/dL Calcium 8.3 L 8.1 L (8.4-10.2) mg/dL Microbiology - Last 24 Hours (Table) 09/21/19 18:40 Gram Stain - Final Sputum Sputum Culture - Final Assessment and Plan (1) Acute transmural inferior wall [place] Current Visit: Yes Status: Acute Code(s): I21.19 - STEMI INVOLVING OTH CORONARY ARTERY OF INFERIOR WALL SNOMED Code(s): 38930458 (2) Acute combined systolic and diastolic heart failure Current Visit: Yes Status: Acute Code(s): I50.41 - ACUTE COMBINED SYSTOLIC AND DIASTOLIC (CONGESTIVE) HRT FAIL SNOMED Code(s): 478963947945319 (3) Essential hypertension Current Visit: Yes Status: Acute Code(s): I10 - ESSENTIAL (PRIMARY) HYPERTENSION SNOMED Code(s): 06361299 Plan: Overall patient condition remained stable with a stable creatinine. Urine output is marginally better. He is on IV dobutamine. He is having intermittent intermittent bouts of atrial fibrillation. Patient will be started on heparin. May consider starting amiodarone. If he has any recurrence of atrial fibrillation. Currently in sinus rhythm
[2019-09-23] MEDS ORDERED: FUROSEMIDE 10 MG/ML 10 ML VIAL IV STA (16:59)
[2019-09-23] MEDS: DILTIAZEM 125 MG in SODIUM CHLORIDE 0.9% 100 ML IV SCH (17:32)
[2019-09-23] MEDS: LEVOFLOXACIN 250 MG TAB PO SCH (20:37)
[2019-09-23] MEDS: ATORVASTATIN 80 MG TAB PO SCH (20:37)
[2019-09-23] MEDS: DOBUTamine DRIP 500 MG in DEXTROSE/WATER 1 250ML.BAG IV SCH (20:37)
[2019-09-23] MEDS ORDERED: DEXTROSE 5% IN WATER 100 ML with AMIODARONE 150 MG IV ONE (22:45)
[2019-09-23] MEDS ORDERED: AMIODARONE 360 MG in DEXTROSE 5% IN WATER 200 ML IV ONE ×2 (23:00)
[2019-09-24 00:04] LABS: Calcium 7.9 mg/dL (8.4-10.2); Potassium 3.7 mmol/L (3.5-5.1)
[2019-09-24] MEDS ORDERED: AMIODARONE 300 MG in DEXTROSE 5% IN WATER 250 ML IV SCH ×2 (05:00)
[2019-09-24 05:14] LABS: Basophils % (A) 0 %; Eosinophils # (A) 0.1 k/uL (0-0.7); Eosinophils % (A) 1 %; HCT 33.4 % (39.0-53.0); HGB 11.2 gm/dL (13.0-17.5); Lymphocytes # (A) 1.1 k/uL (1.0-4.8); Lymphocytes % (A) 7 %; MCH 33.5 pg (25.0-35.0); MCHC 33.4 g/dL (31.0-37.0); MCV 100.4 fL (80.0-100.0); Mean Platelet Volume 7.9; Monocytes # (A) 1.2 k/uL (0-1.0); Monocytes % (A) 7 %; Neutrophils # (A) 13.9 k/uL (1.3-7.7); Neutrophils % (A) 84 %; Platelet Count 329 k/uL (150-450); RBC 3.33 m/uL (4.30-5.90); RDW 13.1 % (11.5-15.5); WBC 16.6 k/uL (3.8-10.6)
[2019-09-24 05:27] LABS: Calcium 7.6 mg/dL (8.4-10.2)
[2019-09-24] MEDS: CLOPIDOGREL 75 MG TAB PO SCH (08:05)
[2019-09-24] MEDS: SODIUM BICARBONATE TAB 650 MG TAB PO SCH ×3 (08:05→21:47)
[2019-09-24] MEDS: TAMSULOSIN 0.4 MG CAP.ER.24H PO SCH (08:05)
[2019-09-24] MEDS: FAMOTIDINE 20 MG TAB PO SCH (08:05)
[2019-09-24] MEDS: MAGNESIUM OXIDE 400 MG TAB PO SCH (08:05)
[2019-09-24] MEDS: METOPROLOL TARTRATE 12.5 MG TAB PO SCH ×2 (08:05→21:47)
[2019-09-24] MEDS: MEMANTINE 10 MG TAB PO SCH (08:05)
[2019-09-24] MEDS: CITALOPRAM HYDROBROMIDE 20 MG TAB PO SCH (08:05)
[2019-09-24] MEDS: PSYLLIUM HUSK 100% 6 GM PACKET PO SCH (08:05)
[2019-09-24] MEDS ORDERED: ATROPINE SULFATE 0.1 MG/ML 10ML SYRINGE ONE (09:45)
--- NOTE | 2019-09-24 09:49 | PN ---
PROGRESS NOTE PULMONARY/CRITICAL CARE PROGRESS NOTE: DATE OF SERVICE: 09/24/2019 Critical care time 32 minutes. A 79-year-old male admitted on September [address]-segment elevation myocardial infarction. He had a stent placed in his right coronary artery. He was admitted with a diagnosis of a heart failure, hypoxemia, and atrial fibrillation. Currently, the patient is on O2 at 3 L by nasal cannula. He was receiving dobutamine at 2.5 mcg/kg per minute and also because of her current atrial fibrillation, was placed on amiodarone at 0.5 mg/minutes and IV heparin via weight based protocol. Previously, he was on a Cardizem drip. Currently, the patient is resting comfortably. Denies any shortness of breath or chest pain. Denies any fever or chills. There is no nausea, vomiting, diarrhea, or abdominal discomfort. Current vital signs are reviewed, temperature is 97.6, heart rate 79, respiratory rate 20, blood pressure 94/52 mean 66, saturations are 94% on 3 L. Appears in no acute distress. HEENT: Examination is grossly unremarkable. Nasal O2 in place. NECK: Supple. Full range of motion. No adenopathy. Neck veins are flat. CARDIOVASCULAR: Examination reveals regular rhythm and rate. Heart rate about 90 beats per minute. S1, S2 normal. No murmur. LUNGS: Reveal mostly clear breath sounds. A few scattered crackles. No wheezes or rhonchi. Breath sounds equal. ABDOMEN: Soft, bowel sounds are heard. EXTREMITIES: Intact. No edema. SKIN: Without rash. NEUROLOGIC: Examination is nonfocal. LABS: Reviewed. White count 16.6, hemoglobin 11.2, hematocrit 33.4, platelet count 329,000, PTT is 60.6. Sodium 127, potassium 4, chloride 93, CO2 is 20, anion gap is 14. BUN and creatinine were 96 and 2.69 compared to 89 and 2.79 yesterday. Calcium 7.6. Microbiology is negative. Chest x-ray from this morning shows borderline cardiomegaly. Some bibasilar infiltrates or atelectasis and a right-sided pleural effusion. Current medications are reviewed. ASSESSMENT: 1. Acute inferior wall ST-segment elevation myocardial infarction, status post stenting of the right coronary artery. 2. Acute pulmonary edema secondary to acute systolic congestive heart failure and ischemic cardiomyopathy. 3. Benign essential hypertension. 4. Hyperlipidemia. 5. History of mild dementia. 6. Atrial fibrillation with RVR. 7. History of acute kidney injury. 8. Possible right lower lobe pneumonia. PLAN: Currently, the patient is on 3 L nasal cannula. That is better in the way of his oxygenation. Chest x-ray is similar to the one from yesterday. It does show a right- sided effusion or infiltrate. The patient remains on dobutamine at 2.5 mcg/kg per minute. Yesterday he was on Cardizem. It has been switched to amiodarone at 0.5 mg/minute. The patient is also receiving heparin via weight-based protocol. Additional recommendations and suggestions are forthcoming. Prognosis is guarded. Will continue to follow. Microbiology is thus far negative. MMODL / IJN: [id number] /
--- NOTE | 2019-09-24 09:55 | XR ---
EXAMINATION TYPE: XR chest 1V portable DATE OF EXAM: 09/24/2019 COMPARISON: 09/23/2019 INDICATION: CHF TECHNIQUE: Single frontal view of the chest is obtained. FINDINGS: The heart size is normal. The pulmonary vasculature is prominent. There is diffuse increased lung markings. Small bilateral pleural effusions are present, larger on th e right. Right lower lobe infiltrate can be related to atelectasis or pneumonia. IMPRESSION: 1. Bilateral pleural effusions, greater on the right. Some adjacent right lower lobe infiltrate is pr esent. Atelectasis or pneumonia could be considered. 2. Prominent pulmonary vascular markings. Pulmonary edema may be present. Clinical correlation recomm ended.
[2019-09-24] MEDS ORDERED: PROPOFOL 100 ML IV ONE (09:57)
[2019-09-24] MEDS ORDERED: LIDOCAINE 1% INJ 10MG/ML (20 ML MDV) SQ ONE (11:13)
--- NOTE | 2019-09-24 11:18 | XR ---
EXAMINATION TYPE: XR chest 1V portable DATE OF EXAM: 09/24/2019 COMPARISON: 09/24/2019 earlier exam INDICATION: Tube placement TECHNIQUE: Single frontal view of the chest is obtained. FINDINGS: The heart size is enlarged. The pulmonary vasculature is prominent. There is increased opacity through the left perihilar region. Right lower lobe infiltrate remains pre sent. Small to moderate right and small left pleural effusion are stable There is placement of an endotracheal tube with the tip 3.1 cm above the mike. Nasogastric tube tra nsverses the thorax IMPRESSION: 1. Developing right perihilar infiltrate. 2. Small to moderate right and small left pleural effusions, stable. 3. Posterior medial right lower lobe infiltrate. 4. Lines and catheters discussed above.
[2019-09-24] MEDS: DOBUTamine DRIP 500 MG in DEXTROSE/WATER 1 250ML.BAG IV SCH ×2 (11:23→21:15)
[2019-09-24] MEDS ORDERED: SODIUM CHLORIDE 0.9% 250 ML IV ONE (11:24)
--- NOTE | 2019-09-24 11:37 | P.PCN ---
Date of Procedure: 09/24/19 Preoperative Diagnosis: Bradycardia cardiac arrest and intermittent atrial fibrillation Postoperative Diagnosis: The same Procedure(s) Performed: Temporary pacemaker implantation Description of Procedure: This 79-year-old gentleman was admitted to the hospital with inferior wall [place] and had stent placement of the RCA. Patient also has peripheral vascular disease and had some difficulties advancing the wire because of iliac disease. Patient has developed CHF. Renal failure and intermittent atrial fibrillation. This morning patient went bradycardic and had a cardiac arrest. 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 Procedure: Patient was brought to the lab in intubated status and sedated. The right groin is infiltrated with lidocaine. Right femoral vein was entered and a 6-Sudanese sheath was placed in the vein. A 5-Sudanese balloontipped temporary pacemaker was advanced to the apex of the right ventricle. A satisfactory position was obtained. Threshold were measured. The minimum patient threshold was 0.3. The pacemaker is set at a rate of 50 and output of 3. No immediate complications. Plan: Patient was transferred to intensive care unit. Continue to monitor
[2019-09-24 12:24] LABS: ABG Base Excess -10.1 mmol/L; ABG HCO3 15 mmol/L (21-25); ABG Oxygen Saturation 99.6 % (94-97); ABG PCO2 26 mmHg (35-45); ABG PH 7.37 (7.35-7.45); ABG PO2 247 mmHg (83-108); ABG TCO2 16 mmol/L (19-24); Allen Test Performed? Yes
[2019-09-24] MEDS ORDERED: SODIUM CHLORIDE 0.9% 1,000 ML IV ONE (12:48)
[2019-09-24] MEDS: PROPOFOL 1,000 MG in EMPTY BAG 1 BAG IV SCH ×3 (13:33→21:47)
[2019-09-24] MEDS: HEPARIN SOD,PORK IN 0.45% NACL 25,000 UNIT in 0.45% NACL 1 250ML.BAG IV SCH (13:40)
[2019-09-24 13:52] LABS: Glucose,Whole Blood 145 mg/dL (75-99)
[2019-09-24] MEDS: INSULIN ASPART (NovoLOG) 100 UNIT/ML VIAL SQ SCH ×2 (13:57→18:26)
[2019-09-24] MEDS: NOREPINEPHRINE 4 MG in SODIUM CHLORIDE 0.9% 250 ML IV SCH (14:36)
--- NOTE | 2019-09-24 14:38 | PN ---
PROGRESS NOTE Patient was seen this morning. Omid drake was called this morning. Patient had developed bradycardia. He was eventually intubated. His serum creatinine is noted to be 2.69 mg/dL today, up from 2.27 and 2.3 yesterday. The patient's urine output had dropped to 10 mL an hour yesterday for 3-4 hours. He was given a dose of IV Lasix and it looks like the urine output has picked up since then, staying at about 30-40 mL an hour. Patient has been started on amiodarone drip. The dobutamine is currently on hold. He has been intubated. Blood pressure had dropped into the 80s, currently staying at about 100-112 mmHg systolic. LABS: Reviewed. Sodium was 127, potassium 4.0, chloride 93, CO2 is 20, BUN of 96, serum creatinine 2.69 mg/dL today. Hemoglobin was 11.2, white cell count is 16.6. ASSESSMENT: 1. Acute kidney injury, ATN secondary to contrast nephropathy and hemodynamic instability. Currently nonoliguric. Patient was oliguric yesterday. We will continue to monitor his urine output. He is status post code blue with severe bradycardia, being considered for possible pacemaker placement. 2. Hypervolemic hyponatremia, expect further improvement with ongoing diuresis. 3. Acute myocardial infarction, status post cardiac catheterization and right coronary stent placement. 4. Cardiomyopathy, ejection fraction 45% to 50%. 5. Possible pneumonia maintained on antibiotics. 6. Metabolic acidosis maintained on oral sodium bicarb, currently improved and stable. PLAN: Continue with the oral sodium bicarb. Monitor electrolytes. May continue off dobutamine. Will follow up on repeat labs. I will also discontinue the magnesium as serum magnesium is elevated. MMODL / IJN: [id number] /
--- NOTE | 2019-09-24 14:43 | P.PN ---
Subjective Progress Note Date: 09/24/19 This is a 79-year-old gentleman with history of hypertension who presented with inferior wall myocardial infarction. Patient had a cardiac catheterization and stent placement of the mid RCA. His CPK was high in the troponin was in the range of 77 on admission. His echo Cardigan showed an ejection fraction of 45%. Patient is complaining of some congestion and seemed to be mild short of breath. Chest x-ray showed evidence of congestive heart failure. Heart appeared to be regular. No peripheral edema. I'm going to start him on IV Lasix 40 mg and start him by mouth Lasix. We'll also give potassium supplement. Rest of the medication to be continued. We'll continue follow his input and output. Follow blood work tomorrow. Further condition depend upon the clinical course. We'll continue to monitor him in intensive care unit 09/21/2019: This patient is admitted to the hospital with inferior wall OR, probably subacute. Patient had stent placement. His eldest was an ejection fraction of 40% to 45% with hypokinesis of the inferior wall. Patient has been short of breath. A chest x-ray showed some evidence of possible pulmonary edema and possible atypical pneumonia involving the right lower lobe. Patient does have white count elevation. Clinically he does have a slow murmur in the apical area and also left sternal border. Rule out possibility of mitral regurgitation. I'm going to repeat the echocardiogram. His urine output is fair. Pulmonary consult is requested regarding possible pneumonia. 09/22/2019: This patient is a status post subacute inferior wall OR and stent placement. Patient is still complaining of shortness of breath and congestion. His lungs show scattered rhonchi and mild wheezing. Chest x-ray shows bilateral findings suggestive of pulmonary edema more so on the right side. Atypical pneumonia cannot be excluded. His blood pressure is running low. His creatinine is also going up. I'm going to start him on dobutamine 5 mics per KG. Patient is also on Lasix. Continue rest of the medication. His repeat echocardiogram did not reveal any significant valvular abnormalities. Patient does have systolic murmur. We'll make consider KIM examination ,if patient doesn't improve promptly 09/23/2019: This patient is status post subacute inferior wall OR and stent placement of the RCA. Patient hasn't been having good urinary output. He s eemed to have acute tubular necrosis. He was started on dobutamine IV. There is some pickup in the urinary output. Patient comes is not feeling well. His chest x-ray showed some improvement in the vascular congestion. There is infiltrated in the right base which could be pneumonia. His her empirically on antibiotics. Patient is being followed by nephrology. We'll continue monitor his renal functions. Further recommendations depend upon critical course. Clinically patient has a systolic murmur. However echocardiogram did not show any significant valvular abnormalities. He patient condition doesn't improve, may consider KIM examination. 09/24/2019: This patient is admitted with subacute inferior wall OR and had stent placement of the RCA. Patient also has severe iliac disease bilaterally. Patient hasn't been progressing well. Developed possible pneumonia and CHF and also renal failure. Urine output has been low. Patient was started on dobutamine. Patient also had intermittent atrial fibrillation. He was initiated on amiodarone yesterday. Today he developed severe bradycardia and cardiac arrest. Patient subsequently had a temporary pacemaker implantation. He still remains hypotensive. He is on dobutamine and we also going to start him on Levophed. Discussed with family about CODE STATUS and extent of care. They're going to discuss and decide that they did consent to proceed with temporary pacemaker. Does have systolic murmur. A repeat echocardiogram also showed mild mitral regurgitation. Aortic valve function is normal. We'll continue current medical therapy. It. Prognosis is guarded. His creatinine is about 2.67. Nephrology is also following the case Objective - Vital Signs Vital signs: Vital Signs Temp 97.4 F L 09/24/19 12:00 Pulse 93 09/24/19 14:00 Resp 16 09/24/19 14:00 BP 80/56 09/24/19 14:00 Pulse Ox 96 09/24/19 14:00 Intake & Output 09/23/19 09/24/19 09/24/19 18:59 06:59 18:59 Intake Total 597.18 237.9 1868.244 Output Total 365 455 155 Balance 232.18 -217.1 1713.244 Weight 74.4 kg 78.5 kg Intake: IV 120 237.9 282.7 0.9 120 120 80 0.9NS Sheath 60 Amiodarone 300 mg In 75 Dextrose 5% in Water 250 ml @ 0.5 MG/MIN 25 mls/hr IV .Q10H [facility] Rx#: [id number] Amiodarone 360 mg In 99.9 33.3 Dextrose 5% in Water 200 ml @ 1 MG/MIN 33.333 mls/ hr IV .Q6H [facility] Rx#: [id number] DOBUTamine DRIP 500 mg In 18 34.4 Dextrose/Water 1 250ml. bag @ 2.5 MCG/KG/MIN 5.94 mls/hr IV .Q24H [facility] Rx#: [id number] Intake, IV Titration 357.18 1525.544 Amount Amiodarone 300 mg In 184.167 Dextrose 5% in Water 250 ml @ 0.5 MG/MIN 25 mls/hr IV .Q10H [facility] Rx#: [id number] DOBUTamine DRIP 500 mg In 232.18 91.377 Dextrose/Water 1 250ml. bag @ 2.5 MCG/KG/MIN 5.94 mls/hr IV .Q24H [facility] Rx#: [id number] Diltiazem 125 mg In 125.00 Sodium Chloride 0.9% 100 ml @ 7.5 MG/HR 7.5 mls/hr IV .[id number] [facility] Rx#: [id number] Heparin Sod,Pork in 0.45% 250.000 NaCl 25,000 unit In 0.45 % NaCl 1 250ml.bag @ 12.5 UNITS/KG/HR 9.95 mls/hr IV .Q24H [facility] Rx#: [id number] Sodium Chloride 0.9% 1, 1000 000 ml @ 999 mls/hr IV . Q1H1M [facility] Rx#:[id number] Oral 120 60 Output: Urine 365 455 155 Other: Voiding Method Bedside Commode Indwelling Catheter Indwelling Catheter # Voids 0 # Bowel Movements 2 - Exam GENERAL EXAM: Patient is intubated and sedated HEENT: Normocephalic. Normal reaction of pupils, equal size, normal range of extraocular motion. No erythema or exudates in the throat. NECK: No masses, no nuchal rigidity. CHEST: No chest wall deformity. LUNGS: Scattered rhonchi and wheezes HEART: S1, S2 heard. Systolic murmur heard at the apex and left sternal border ABDOMEN: No hepatosplenomegaly, normal bowel sounds, no guarding or rigidity. SKIN: No rashes CENTRAL NERVOUS SYSTEM: No focal deficits. EXTREMITIES: No cyanosis, clubbing or edema. - Labs CBC & Chem 7: 09/24/19 04:40 09/24/19 04:51 Labs: Abnormal Lab Results - Last 24 Hours (Table) 09/23/19 09/23/19 09/24/19 Range/Units 17:08 22:54 04:40 WBC 16.6 H (3.8-10.6) k/uL RBC 3.33 L (4.30-5.90) m/uL Hgb 11.2 L (13.0-17.5) gm/dL Hct 33.4 L (39.0-53.0) % MCV 100.4 H (80.0-100.0) fL Neutrophils # 13.9 H (1.3-7.7) k/uL Monocytes # 1.2 H (0-1.0) k/uL APTT 58.3 H (22.0-30.0) sec ABG pCO2 (35-45) mmHg ABG pO2 (83-108) mmHg ABG HCO3 (21-25) mmol/L ABG Total CO2 (19-24) mmol/L ABG O2 Saturation (94-97) % Sodium 124 L (137-145) mmol/L Chloride 92 L (98-107) mmol/L Carbon Dioxide 19 L (22-30) mmol/L BUN 89 H (9-20) mg/dL Creatinine 2.79 H (0.66-1.25) mg/dL Glucose 118 H (74-99) mg/dL POC Glucose (mg/dL) (75-99) mg/dL Calcium 7.9 L (8.4-10.2) mg/dL Magnesium 3.0 H (1.6-2.3) mg/dL 09/24/19 09/24/19 09/24/19 Range/Units 04:40 04:51 04:51 WBC (3.8-10.6) k/uL RBC (4.30-5.90) m/uL Hgb (13.0-17.5) gm/dL Hct (39.0-53.0) % MCV (80.0-100.0) fL Neutrophils # (1.3-7.7) k/uL Monocytes # (0-1.0) k/uL APTT 60.6 H (22.0-30.0) sec ABG pCO2 (35-45) mmHg ABG pO2 (83-108) mmHg ABG HCO3 (21-25) mmol/L ABG Total CO2 (19-24) mmol/L ABG O2 Saturation (94-97) % Sodium 127 L (137-145) mmol/L Chloride 93 L (98-107) mmol/L Carbon Dioxide 20 L (22-30) mmol/L BUN 96 H (9-20) mg/dL Creatinine 2.69 H (0.66-1.25) mg/dL Glucose 154 H (74-99) mg/dL POC Glucose (mg/dL) (75-99) mg/dL Calcium 7.6 L (8.4-10.2) mg/dL Magnesium 3.2 H (1.6-2.3) mg/dL 09/24/19 09/24/19 Range/Units 12:19 13:50 WBC (3.8-10.6) k/uL RBC (4.30-5.90) m/uL Hgb (13.0-17.5) gm/dL Hct (39.0-53.0) % MCV (80.0-100.0) fL Neutrophils # (1.3-7.7) k/uL Monocytes # (0-1.0) k/uL APTT (22.0-30.0) sec ABG pCO2 26 L (35-45) mmHg ABG pO2 247 H (83-108) mmHg ABG HCO3 15 L (21-25) mmol/L ABG Total CO2 16 L (19-24) mmol/L ABG O2 Saturation 99.6 H (94-97) % Sodium (137-145) mmol/L Chloride (98-107) mmol/L Carbon Dioxide (22-30) mmol/L BUN (9-20) mg/dL Creatinine (0.66-1.25) mg/dL Glucose (74-99) mg/dL POC Glucose (mg/dL) 145 H (75-99) mg/dL Calcium (8.4-10.2) mg/dL Magnesium (1.6-2.3) mg/dL Assessment and Plan (1) Acute transmural inferior wall OR Current Visit: Yes Status: Acute Code(s): I21.19 - STEMI INVOLVING OTH CORONARY ARTERY OF INFERIOR WALL SNOMED Code(s): 64046440 (2) Acute combined systolic and diastolic heart failure Current Visit: Yes Status: Acute Code(s): I50.41 - ACUTE COMBINED SYSTOLIC AND DIASTOLIC (CONGESTIVE) HRT FAIL SNOMED Code(s): 588897340636434 (3) Essential hypertension Current Visit: Yes Status: Acute Code(s): I10 - ESSENTIAL (PRIMARY) HYPERTENSION SNOMED Code(s): 51477073 (4) Cardiac arrest Current Visit: Yes Status: Acute Code(s): I46.9 - CARDIAC ARREST, CAUSE UNSPECIFIED SNOMED Code(s): 933411189 Plan: Patient had severe bradycardia sinus pauses and cardiac arrest requiring resuscitation. Subsequently, patient had temporary pacemaker. Still having intermittent atrial fibrillation. Urine output output is low and patient has been hypotensive. Discussed with family about CODE STATUS and extent of the care. The going to discuss and decide. Meanwhile they did consent for temporary pacemaker which was implanted. Further recommendations depend upon clinical course. Prognosis is guarded
--- NOTE | 2019-09-24 16:01 | P.PN ---
Subjective 79 years old male with past medical history of hypertension, hyperlipidemia, dementia, prostate cancer status post radiotherapy , patient presents because of chest pain found to have STEMI, he underwent cardiac cath status post stent placement in the right coronary artery. He is in the ICU. His creatinine increased today to 1.4, WBC is high at 18.6 and 19.6 K, sodium 131, his chest x-ray showing pulmonary congestion with possible interstitial pneumonia He saturating 90s on 7 L/m oxygen via nasal cannula. College Basketball Coach already given 1 dose of Lasix IV and continued on 40 mg by mouth daily, 1 going to give him another dose of Lasix. Blood pressure is on the low normal but he is tachypneic at 35. A but that side nurse his breathing is li ttle better in the evening than in the morning and he did not need BiPAP for now. He is also on aspirin and Plavix, he is on metoprolol 12.5 mg and lisinopril 2.5 mg, we going to hold lisinopril for now Also call pulmonary and nephrology consult 09/21/2019 Patient breathing easier but however his significantly tachypneic and mid 20s, he saturating 94% on 9 L oxygen via nasal cannula. His blood pressure 96/57 and heart rate 77. He still bleeding from dyspnea but no chest pain, he has little cough with clear phlegm. This morning he was trying to get out of bed to the restroom by himself when he fell on hit his head in the forehead area. Chest x-ray: Pulmonary edema, atypical pneumonia, some right lower lobe pneumonia WBC this morning is 18.1 K with slight improvement. Sodium 132, creatinine stable at 1.5. Procol stone and is elevated at 0.23 Patient is currently on by mouth Lasix, lisinopril is held, fire prevention specialist recommended to continue with metoprolol 12.5, we going to check with cardiology about holding parameters. Continue with Levaquin. Ordered EKG 09/22/19 Patient awake and alert, his breathing is easier although he still complains from some chest pain with little dyspnea and the 10 cough. He is saturating 94% on 3-5 L of oxygen via nasal cannula. Rest of Vitas looks stable, however her blood pressure is on the low side, this morning was 78/56- 94/59 WBC is 17.1 K, hemoglobin 12.2, sodium 128, creatinine went up to 2.3. Lactic acid is elevated at 3.8. ProBNP is 41 500 sputum culture is pending. Chest x-ray showing stable changes with diffuse parenchymal changes or diffuse pneumonia or CHF/pulmonary edema Cardiology started the patient on dobutamine drip, also he got 1 dose of Lasix 60 mg IV 1 and on sodium bicarbonate tablets. Patient also is on Levaquin 250 mg by mouth daily, which is renal dose. Pulmonary nephrology and cardiology teams on the case 09/23/2019 Patient is still complaining of shortness of breath patient has significant rhonchi streaking heart failure exacerbation patient is presently on dobutamine drip does have atrial fibrillation for which patient is on Cardizem, patient is still hyponatremic receiving sodium bicarbonate tablets is also on Lasix, patient is on metoprolol as well. Patient was started on IV heparin. We will d yspnea Cardizem as it decreases as it [facility] heart failure. Nephrology is following the patient patient probably has hypovolemic hyponatremia Patient went into asystole after which the patient had a temporary transvenous a speckled placement , patient was also intubated because of respiratory failure. Patient is presently on dopamine drip and also on norepinephrine drip. Patient is presently sinus rhythm. Patient still has pulmonary edema on the chest x-ray nephrology is managing diuretics patient serum sodium continues to be low at 124we creatinine continued to go up to subacute 2.79 review of systems: Unable to obtain as patient is intubated and sedated at this time All inpatient medications were reviewed and appropriate changes in these medications as dictated in the interval history and assessment and plan. Objective - Vital Signs Vital signs: Vital Signs Temp 97.4 F L 09/24/19 12:00 Pulse 67 09/24/19 15:00 Resp 14 09/24/19 15:00 BP 83/60 09/24/19 15:00 Pulse Ox 97 09/24/19 15:00 Intake & Output 09/23/19 09/24/19 09/24/19 18:59 06:59 18:59 Intake Total 597.18 237.9 1898.244 Output Total 365 455 180 Balance 232.18 -217.1 1718.244 Weight 74.4 kg 78.5 kg Intake: IV 120 237.9 312.7 0.9 120 120 90 0.9NS Sheath 80 Amiodarone 300 mg In 75 Dextrose 5% in Water 250 ml @ 0.5 MG/MIN 25 mls/hr IV .Q10H [facility] Rx#: [id number] Amiodarone 360 mg In 99.9 33.3 Dextrose 5% in Water 200 ml @ 1 MG/MIN 33.333 mls/ hr IV .Q6H [facility] Rx#: [id number] DOBUTamine DRIP 500 mg In 18 34.4 Dextrose/Water 1 250ml. bag @ 2.5 MCG/KG/MIN 5.94 mls/hr IV .Q24H [facility] Rx#: [id number] Intake, IV Titration 357.18 1525.544 Amount Amiodarone 300 mg In 184.167 Dextrose 5% in Water 250 ml @ 0.5 MG/MIN 25 mls/hr IV .Q10H [facility] Rx#: [id number] DOBUTamine DRIP 500 mg In 232.18 91.377 Dextrose/Water 1 250ml. bag @ 2.5 MCG/KG/MIN 5.94 mls/hr IV .Q24H [facility] Rx#: [id number] Diltiazem 125 mg In 125.00 Sodium Chloride 0.9% 100 ml @ 7.5 MG/HR 7.5 mls/hr IV .[id number] [facility] Rx#: [id number] Heparin Sod,Pork in 0.45% 250.000 NaCl 25,000 unit In 0.45 % NaCl 1 250ml.bag @ 12.5 UNITS/KG/HR 9.95 mls/hr IV .Q24H [facility] Rx#: [id number] Sodium Chloride 0.9% 1, 1000 000 ml @ 999 mls/hr IV . Q1H1M [facility] Rx#:[id number] Oral 120 60 Output: Urine 365 455 180 Other: Voiding Method Bedside Commode Indwelling Catheter Indwelling Catheter # Voids 0 # Bowel Movements 2 - Exam GENERAL:patient is intubated sedated HEENT: Pupils are round and equally reacting to light. EOMI. No scleral icterus. No conjunctival pallor. Normocephalic, atraumatic. No pharyngeal erythema. No thyromegaly. CARDIOVASCULAR: S1 and S2 present. No murmurs, rubs, or gallops. Does have elevated JVD -PULMONARY: Diffuse bilateral crackles ABDOMEN: Soft, nontender, nondistended, normoactive bowel sounds. No palpable organomegaly. MUSCULOSKELETAL: No joint swelling or deformity. EXTREMITIES: No cyanosis, clubbing, or pedal edema. NEUROLOGICAL: unable to assess. SKIN: No rashes. no petechiae. - Labs CBC & Chem 7: 09/24/19 04:40 09/24/19 04:51 Labs: Abnormal Lab Results - Last 24 Hours (Table) 09/23/19 09/23/19 09/24/19 Range/Units 17:08 22:54 04:40 WBC 16.6 H (3.8-10.6) k/uL RBC 3.33 L (4.30-5.90) m/uL Hgb 11.2 L (13.0-17.5) gm/dL Hct 33.4 L (39.0-53.0) % MCV 100.4 H (80.0-100.0) fL Neutrophils # 13.9 H (1.3-7.7) k/uL Monocytes # 1.2 H (0-1.0) k/uL APTT 58.3 H (22.0-30.0) sec ABG pCO2 (35-45) mmHg ABG pO2 (83-108) mmHg ABG HCO3 (21-25) mmol/L ABG Total CO2 (19-24) mmol/L ABG O2 Saturation (94-97) % Sodium 124 L (137-145) mmol/L Chloride 92 L (98-107) mmol/L Carbon Dioxide 19 L (22-30) mmol/L BUN 89 H (9-20) mg/dL Creatinine 2.79 H (0.66-1.25) mg/dL Glucose 118 H (74-99) mg/dL POC Glucose (mg/dL) (75-99) mg/dL Calcium 7.9 L (8.4-10.2) mg/dL Magnesium 3.0 H (1.6-2.3) mg/dL 09/24/19 09/24/19 09/24/19 Range/Units 04:40 04:51 04:51 WBC (3.8-10.6) k/uL RBC (4.30-5.90) m/uL Hgb (13.0-17.5) gm/dL Hct (39.0-53.0) % MCV (80.0-100.0) fL Neutrophils # (1.3-7.7) k/uL Monocytes # (0-1.0) k/uL APTT 60.6 H (22.0-30.0) sec ABG pCO2 (35-45) mmHg ABG pO2 (83-108) mmHg ABG HCO3 (21-25) mmol/L ABG Total CO2 (19-24) mmol/L ABG O2 Saturation (94-97) % Sodium 127 L (137-145) mmol/L Chloride 93 L (98-107) mmol/L Carbon Dioxide 20 L (22-30) mmol/L BUN 96 H (9-20) mg/dL Creatinine 2.69 H (0.66-1.25) mg/dL Glucose 154 H (74-99) mg/dL POC Glucose (mg/dL) (75-99) mg/dL Calcium 7.6 L (8.4-10.2) mg/dL Magnesium 3.2 H (1.6-2.3) mg/dL 09/24/19 09/24/19 Range/Units 12:19 13:50 WBC (3.8-10.6) k/uL RBC (4.30-5.90) m/uL Hgb (13.0-17.5) gm/dL Hct (39.0-53.0) % MCV (80.0-100.0) fL Neutrophils # (1.3-7.7) k/uL Monocytes # (0-1.0) k/uL APTT (22.0-30.0) sec ABG pCO2 26 L (35-45) mmHg ABG pO2 247 H (83-108) mmHg ABG HCO3 15 L (21-25) mmol/L ABG Total CO2 16 L (19-24) mmol/L ABG O2 Saturation 99.6 H (94-97) % Sodium (137-145) mmol/L Chloride (98-107) mmol/L Carbon Dioxide (22-30) mmol/L BUN (9-20) mg/dL Creatinine (0.66-1.25) mg/dL Glucose (74-99) mg/dL POC Glucose (mg/dL) 145 H (75-99) mg/dL Calcium (8.4-10.2) mg/dL Magnesium (1.6-2.3) mg/dL Assessment and Plan Plan: -STEMI status post cardiac cath and stent placement in the RCA Acute hypoxic respiratory failure secondary to congestive heart failure because systolic dysfunction with the acute exacerbation, patient is presently intubated patient was intubated on 09/24/2019 -Asystole, 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 fib, Acute kidney injury prerenal azotemia secondary to heart failure exacerbation -Hypervolemic hyponatremia secondary to heart failure Hypotension Fall, with no dizziness or syncope -Patient is on levofloxacin because of possibly of pneumonia Hypertension Hyperlipidemia History of prostate cancer status post radiotherapy
[2019-09-24 18:22] LABS: Glucose,Whole Blood 130 mg/dL (75-99)
--- NOTE | 2019-09-24 19:04 | P.PN ---
Progress Note - Text Progress Note Date: 09/24/19 CODE BLUE note This is a late note entry. CODE GOPAL was called around 9:45 AM. Apparently, braden hidalgo went into bradycardia and then PEA. High-quality chest compressions were started. Please refer to the code for further details. Patient was intubated. ROSC was achieved. Patient was given a 1 L bolus. EKG was performed. Cardiology was notified. Kaela Lane DINING [employer] STEWARD was present during the CODE BLUE. Primary team was notified.
[2019-09-24] MEDS: CHLORHEXIDINE GLUCONATE 15 ML CUP MUCOUS MEM SCH (21:47)
[2019-09-24] MEDS: ATORVASTATIN 80 MG TAB PO SCH (21:48)
[2019-09-24] MEDS: LEVOFLOXACIN 250 MG TAB PO SCH (21:48)
[2019-09-24 23:42] LABS: Glucose,Whole Blood 150 mg/dL (75-99)
[2019-09-25] MEDS: INSULIN ASPART (NovoLOG) 100 UNIT/ML VIAL SQ SCH ×3 (00:05→12:55)
[2019-09-25] MEDS: NOREPINEPHRINE 4 MG in SODIUM CHLORIDE 0.9% 250 ML IV SCH (03:04)
[2019-09-25] MEDS: PROPOFOL 1,000 MG in EMPTY BAG 1 BAG IV SCH ×3 (03:04→12:42)
[2019-09-25 05:01] LABS: Basophils % (A) 0 %; Eosinophils # (A) 0.1 k/uL (0-0.7); Eosinophils % (A) 1 %; HCT 34.1 % (39.0-53.0); Lymphocytes % (A) 6 %; MCH 32.3 pg (25.0-35.0); MCHC 32.3 g/dL (31.0-37.0); Mean Platelet Volume 7.7; Monocytes % (A) 6 %; Neutrophils # (A) 14.1 k/uL (1.3-7.7); Neutrophils % (A) 85 %; Platelet Count 364 k/uL (150-450); RDW 13.1 % (11.5-15.5); WBC 16.6 k/uL (3.8-10.6)
[2019-09-25] MEDS ORDERED: HEPARIN SODIUM,PORCINE 5,000 UNIT/ML 1 ML VIAL IV STA (05:16)
[2019-09-25 05:28] LABS: ABG Base Excess -6.8 mmol/L; ABG HCO3 18 mmol/L (21-25); ABG Oxygen Saturation 95.8 % (94-97); ABG PCO2 26 mmHg (35-45); ABG PH 7.43 (7.35-7.45); ABG PO2 86 mmHg (83-108); ABG TCO2 18 mmol/L (19-24); Allen Test Performed? Yes
[2019-09-25 05:39] LABS: Albumin 2.9 g/dL (3.5-5.0); Calcium 7.3 mg/dL (8.4-10.2); Magnesium 3.3 mg/dL (1.6-2.3); Potassium 3.9 mmol/L (3.5-5.1); Total Bilirubin 1.1 mg/dL (0.2-1.3); Total Protein 5.1 g/dL (6.3-8.2)
--- NOTE | 2019-09-25 07:27 | XR ---
EXAMINATION TYPE: XR chest 1V portable DATE OF EXAM: 09/25/2019 COMPARISON: Prior chest x-ray 09/24/2019 HISTORY: Intubated TECHNIQUE: Single frontal view of the chest is obtained. FINDINGS: Endotracheal tube and NG tube are overlying appropriate positions. There are overlying aileen ds present, transvenous pacemaker coursing from the inferior margin of the exam is present in the dis ashley tip overlying the right ventricle. The heart is enlarged. Bilateral airspace disease persists, th e hemidiaphragms are obscured. No evident pneumothorax. Aorta is dense. IMPRESSION: Correlate for congestive heart failure with pulmonary edema, pneumonia, ARDS within the differential.
[2019-09-25] MEDS ORDERED: IPRATROPIUM-ALBUTEROL 3 ML NEB INHALATION PRN (07:47)
[2019-09-25] MEDS: PANTOPRAZOLE 40 MG/10 ML VIAL IVP SCH (08:15)
[2019-09-25] MEDS: TAMSULOSIN 0.4 MG CAP.ER.24H PO SCH (08:16)
[2019-09-25] MEDS: CHLORHEXIDINE GLUCONATE 15 ML CUP MUCOUS MEM SCH (08:16)
[2019-09-25] MEDS: METOPROLOL TARTRATE 12.5 MG TAB PO SCH (08:16)
[2019-09-25] MEDS: CLOPIDOGREL 75 MG TAB PO SCH (08:16)
[2019-09-25] MEDS ORDERED: IPRATROPIUM-ALBUTEROL 3 ML NEB ONE ×2 (08:16→23:50)
[2019-09-25] MEDS: SODIUM BICARBONATE TAB 650 MG TAB PO SCH ×2 (08:16→18:36)
[2019-09-25] MEDS ORDERED: CISATRACURIUM 2 MG/ML 5 ML VIAL IV ONE (09:03)
--- NOTE | 2019-09-25 10:21 | PN ---
PROGRESS NOTE PULMONARY/CRITICAL CARE PROGRESS NOTE: DATE OF SERVICE: 09/25/2019 Critical care time 33 minutes. This is a 79-year-old male who was admitted on September [address]-segment elevation myocardial infarction. He had a stent placed in his right coronary artery. He was admitted with a diagnosis of CHF, hypoxemia, and atrial fibrillation. Yesterday, the patient unfortunately sustained an episode of asystole. He was intubated on September 24. He had 7 minutes of cardiopulmonary arrest with 7 minutes of cardiopulmonary resuscitation. He had a vent. He had eventual return of spontaneous circulation after being intubated and receiving 1 dose of atropine. Apparently, he recently was on amiodarone for atrial fibrillation. Currently, the patient is on the volume assist- control mode rate of 12, tidal volume 450, FiO2 of 50%, PEEP of 5. Gases show a pO2 of 86, pCO2 of 26, and pH of 7.43. These blood gases consistent with a mixed acid-base disturbance including combined respiratory alkalosis/metabolic acidosis. The patient has a loud systolic murmur mostly consistent in my opinion with aortic stenosis. The patient is receiving dobutamine at 5 mcg/kg per minute, norepinephrine at 8 mcg/minute, propofol 40 mcg/kg per minute, heparin via weight based protocol, 0.9 at 20 mL an hour, and Vital high-protein at 30 with a goal of 53 mL an hour. Vital signs are reviewed. Temperature is 96.2, heart rate 71, respiratory rate is 12, blood pressure 97/61 mean 73, saturations are 95%. Appears in no acute distress. Currently sedated. HEENT: Examination is grossly unremarkable. There is an orally placed endotracheal tube and NG tube. Neck is supple. Full range of motion. No adenopathy. Neck veins are flat. CARDIOVASCULAR: Examination reveals regular rhythm rate. Heart rate 71 beats per minute. S1, S2 normal. Heart sounds are distant. LUNGS: Reveal diffuse coarse rhonchi and crackles. No wheezes. Breath sounds equal. Abdomen soft bowel sounds are heard. EXTREMITIES are intact. Slight edema noted. SKIN: Without rash. NEUROLOGIC: Examination is difficult to assess given the fact he is currently intubated and sedated. LABS: Reviewed. White count 16.6, hemoglobin 11, hematocrit 34.1, platelet count 364,000 PTT 27.1. Blood gases have been mentioned. Sodium 126, potassium 3.9, chloride 96, CO2 18 anion gap is 12. BUN and creatinine were 99 and 2.64. Magnesium is 3.3, bilirubin 1.1, AST 1225, ALT 867, likely representing a shocked liver. Albumin 2.9. Microbiology is negative or pending. Chest x-ray shows diffuse bilateral infiltrates with bilateral effusions consistent with fluid overload. Orders are reviewed. ASSESSMENT: 1. Status post cardiopulmonary arrest with asystole, and 7 minutes of cardiopulmonary resuscitation. 2. Hypoxemic respiratory failure requiring intubation and mechanical ventilation on September 25, 2019. 3. Acute inferior wall ST-segment elevation myocardial infarction, status post stenting of the right coronary artery. 4. Acute pulmonary edema secondary to acute systolic congestive heart failure and ischemic cardiomyopathy. 5. Benign essential hypertension. 6. Hyperlipidemia. 7. History of mild dementia. 8. Atrial fibrillation with RVR. 9. History of acute kidney injury. 10.Possible right lower lobe pneumonia. 11.Loud systolic murmur, rule out aortic valve disease. PLAN: An echocardiogram was done yesterday after the cardiopulmonary arrest. The results are pending. The patient remains on dobutamine, norepinephrine, propofol, IV heparin, and saline. The patient is also getting nourished enterally with vital high-protein, but is not at goal. Blood gases showed combined mixed acid-base disturbance with a combined respiratory alkalosis/metabolic acidosis. Overall prognosis remains guarded. Will continue to follow. Additional recommendations and suggestions are forthcoming. . Critical care time 33 minutes. MMODL / IJN: [id number] /
[2019-09-25 11:46] LABS: Glucose,Whole Blood 193 mg/dL (75-99)
--- NOTE | 2019-09-25 11:54 | PCN ---
PROCEDURE NOTE PROCEDURE: Left subclavian triple-lumen catheter. PREOPERATIVE DIAGNOSIS: Administration of fluids and pressors. POSTOPERATIVE DIAGNOSIS: Administration of fluids and pressors. There was informed consent. A time-out was completed verifying correct patient, procedure, site, positioning, and implant(s) or special equipment if applicable. The patient was placed in a dependent position appropriate for triple lumen catheter placement based on the vein to be cannulated. The patient's left shoulder was prepped and draped in sterile fashion. 1% Lidocaine was used to anesthetize the surrounding skin area. A triple lumen 9F Cordis catheter was introduced into the left subclavian using Seldinger technique. The catheter was threaded smoothly over the guide wire and appropriate blood return was obtained. Each lumen of the catheter was evacuated of air and flushed with sterile saline. The catheter was then sutured in place to the skin and a sterile dressing applied. Perfusion to the extremity distal to the point of catheter insertion was checked and found to be adequate. There was no immediate complication there was good blood return from all 3 ports. The catheter was seen at the junction of the superior vena cava, right atrium. The catheter was sutured in place. Sterile dressing was applied by the nurse. A chest x- ray was ordered to check placement and rule out pneumothorax. The patient tolerated the procedure well without complication. MMODL / IJN: [id number] /
--- NOTE | 2019-09-25 13:21 | P.PN ---
Subjective 79 years old male with past medical history of hypertension, hyperlipidemia, dementia, prostate cancer status post radiotherapy , patient presents because of chest pain found to have STEMI, he underwent cardiac cath status post stent placement in the right coronary artery. He is in the ICU. His creatinine increased today to 1.4, WBC is high at 18.6 and 19.6 K, sodium 131, his chest x-ray showing pulmonary congestion with possible interstitial pneumonia He saturating 90s on 7 L/m oxygen via nasal cannula. [employer] already given 1 dose of Lasix IV and continued on 40 mg by mouth daily, 1 going to give him another dose of Lasix. Blood pressure is on the low normal but he is tachypneic at 35. A but that side nurse his breathing is li ttle better in the evening than in the morning and he did not need BiPAP for now. He is also on aspirin and Plavix, he is on metoprolol 12.5 mg and lisinopril 2.5 mg, we going to hold lisinopril for now Also call pulmonary and nephrology consult 09/21/2019 Patient breathing easier but however his significantly tachypneic and mid 20s, he saturating 94% on 9 L oxygen via nasal cannula. His blood pressure 96/57 and heart rate 77. He still bleeding from dyspnea but no chest pain, he has little cough with clear phlegm. This morning he was trying to get out of bed to the restroom by himself when he fell on hit his head in the forehead area. Chest x-ray: Pulmonary edema, atypical pneumonia, some right lower lobe pneumonia WBC this morning is 18.1 K with slight improvement. Sodium 132, creatinine stable at 1.5. Procol stone and is elevated at 0.23 Patient is currently on by mouth Lasix, lisinopril is held, net manager recommended to continue with metoprolol 12.5, we going to check with cardiology about holding parameters. Continue with Levaquin. Ordered EKG 09/22/19 Patient awake and alert, his breathing is easier although he still complains from some chest pain with little dyspnea and the 10 cough. He is saturating 94% on 3-5 L of oxygen via nasal cannula. Rest of Vitas looks stable, however her blood pressure is on the low side, this morning was 78/56- 94/59 WBC is 17.1 K, hemoglobin 12.2, sodium 128, creatinine went up to 2.3. Lactic acid is elevated at 3.8. ProBNP is 41 500 sputum culture is pending. Chest x-ray showing stable changes with diffuse parenchymal changes or diffuse pneumonia or CHF/pulmonary edema Cardiology started the patient on dobutamine drip, also he got 1 dose of Lasix 60 mg IV 1 and on sodium bicarbonate tablets. Patient also is on Levaquin 250 mg by mouth daily, which is renal dose. Pulmonary nephrology and cardiology teams on the case 09/23/2019 Patient is still complaining of shortness of breath patient has significant rhonchi streaking heart failure exacerbation patient is presently on dobutamine drip does have atrial fibrillation for which patient is on Cardizem, patient is still hyponatremic receiving sodium bicarbonate tablets is also on Lasix, patient is on metoprolol as well. Patient was started on IV heparin. We will d yspnea Cardizem as it decreases as it [facility] heart failure. Nephrology is following the patient patient probably has hypovolemic hyponatremia Patient went into asystole after which the patient had a temporary transvenous a speckled placement , patient was also intubated because of respiratory failure. Patient is presently on dopamine drip and also on norepinephrine drip. Patient is presently sinus rhythm. Patient still has pulmonary edema on the chest x-ray nephrology is managing diuretics patient serum sodium continues to be low at 124we creatinine continued to go up to subacute 2.September Patient remains on ventilator support with FiO2 of 50% deep of 5 respiratory set up respiratory rate of 12. Blood gases did not show any significant abnormality. Patient remains are not epinephrine 8 mcg/m dobutamine drip propofol drip heparin drip presently sinus rhythm, nutrition via NG tube review of systems: Unable to obtain as patient is intubated and sedated at this time All inpatient medications were reviewed and appropriate changes in these medications as dictated in the interval history and assessment and plan. Objective - Vital Signs Vital signs: Vital Signs Temp 97.8 F 09/25/19 12:00 Pulse 102 H 09/25/19 13:00 Resp 16 09/25/19 13:00 BP 124/82 09/25/19 13:00 Pulse Ox 96 09/25/19 13:00 Intake & Output 07/07/20 07/08/20 07/08/20 18:59 06:59 18:59 Intake Total 2099.807 1433.692 484.000 Output Total 295 590 60 Balance 1804.807 843.692 424.000 Weight 78.5 kg 88.1 kg Intake: IV 402.7 470 40 0.9 120 230 20 0.9NS Sheath 140 240 20 Amiodarone 300 mg In 75 Dextrose 5% in Water 250 ml @ 0.5 MG/MIN 25 mls/hr IV .Q10H RJ Rx#: [id number] Amiodarone 360 mg In 33.3 Dextrose 5% in Water 200 ml @ 1 MG/MIN 33.333 mls/ hr IV .Q6H ONE Rx#: [id number] DOBUTamine DRIP 500 mg In 34.4 Dextrose/Water 1 250ml. bag @ 5 MCG/KG/MIN 11.88 mls/hr IV .Q21H3M RJ Rx# :[id number] Intake, IV Titration 1567.107 693.692 354.000 Amount Amiodarone 300 mg In 184.167 Dextrose 5% in Water 250 ml @ 0.5 MG/MIN 25 mls/hr IV .Q10H RJ Rx#: [id number] DOBUTamine DRIP 500 mg In 91.377 109.89 Dextrose/Water 1 250ml. bag @ 5 MCG/KG/MIN 11.88 mls/hr IV .Q21H3M RJ Rx# :[id number] Heparin Sod,Pork in 0.45% 250.000 155 NaCl 25,000 unit In 0.45 % NaCl 1 250ml.bag @ 12.5 UNITS/KG/HR 9.95 mls/hr IV .Q24H RJ Rx#: [id number] Norepinephrine 4 mg In 8.976 168.713 254.000 Sodium Chloride 0.9% 250 ml @ 0.05 MCG/KG/MIN 14. 173 mls/hr IV .[id number] RJ Rx#:[id number] Propofol 1,000 mg In 32.587 260.089 100 Empty Bag 1 bag @ Titrate IV .Q0M RJ Rx#: [id number] Sodium Chloride 0.9% 1, 1000 000 ml @ 999 mls/hr IV . Q1H1M ONE Rx#:[id number] Oral 60 Tube Feeding 40 180 90 Other 30 90 Output: Urine 295 590 60 Other: Voiding Method Indwelling Catheter Indwelling Catheter Indwelling Catheter ABP, PAP, CO, CI - Last Documented Arterial Blood Pressure 113/67 - Exam GENERAL:patient is intubated sedated HEENT: Pupils are round and equally reacting to light. EOMI. No scleral icterus. No conjunctival pallor. Normocephalic, atraumatic. No pharyngeal erythema. No thyromegaly. CARDIOVASCULAR: S1 and S2 present. No murmurs, rubs, or gallops. Does have elevated JVD -PULMONARY: Diffuse bilateral crackles ABDOMEN: Soft, nontender, nondistended, normoactive bowel sounds. No palpable organomegaly. MUSCULOSKELETAL: No joint swelling or deformity. EXTREMITIES: No cyanosis, clubbing, or pedal edema. NEUROLOGICAL: unable to assess. SKIN: No rashes. no petechiae. - Labs CBC & Chem 7: 09/25/19 04:26 09/25/19 04:26 Labs: Abnormal Lab Results - Last 24 Hours (Table) 09/24/19 09/24/19 09/24/19 Range/Units 13:50 18:21 23:41 WBC (3.8-10.6) k/uL RBC (4.30-5.90) m/uL Hgb (13.0-17.5) gm/dL Hct (39.0-53.0) % Neutrophils # (1.3-7.7) k/uL ABG pCO2 (35-45) mmHg ABG HCO3 (21-25) mmol/L ABG Total CO2 (19-24) mmol/L Sodium (137-145) mmol/L Chloride (98-107) mmol/L Carbon Dioxide (22-30) mmol/L BUN (9-20) mg/dL Creatinine (0.66-1.25) mg/dL Glucose (74-99) mg/dL POC Glucose (mg/dL) 145 H 130 H 150 H (75-99) mg/dL Calcium (8.4-10.2) mg/dL Magnesium (1.6-2.3) mg/dL AST (17-59) U/L ALT (4-49) U/L Total Protein (6.3-8.2) g/dL Albumin (3.5-5.0) g/dL 09/25/19 09/25/1920 Range/Units 04:26 04:26 05:08 WBC 16.6 H (3.8-10.6) k/uL RBC 3.40 L (4.30-5.90) m/uL Hgb 11.0 L (13.0-17.5) gm/dL Hct 34.1 L (39.0-53.0) % Neutrophils # 14.1 H (1.3-7.7) k/uL ABG pCO2 26 L (35-45) mmHg ABG HCO3 18 L (21-25) mmol/L ABG Total CO2 18 L (19-24) mmol/L Sodium 126 L (137-145) mmol/L Chloride 96 L (98-107) mmol/L Carbon Dioxide 18 L (22-30) mmol/L BUN 99 H (9-20) mg/dL Creatinine 2.64 H (0.66-1.25) mg/dL Glucose 130 H (74-99) mg/dL POC Glucose (mg/dL) (75-99) mg/dL Calcium 7.3 L (8.4-10.2) mg/dL Magnesium 3.3 H (1.6-2.3) mg/dL AST 1225 H (17-59) U/L ALT 867 H (4-49) U/L Total Protein 5.1 L (6.3-8.2) g/dL Albumin 2.9 L (3.5-5.0) g/dL 09/25/19 Range/Units 11:44 WBC (3.8-10.6) k/uL RBC (4.30-5.90) m/uL Hgb (13.0-17.5) gm/dL Hct (39.0-53.0) % Neutrophils # (1.3-7.7) k/uL ABG pCO2 (35-45) mmHg ABG HCO3 (21-25) mmol/L ABG Total CO2 (19-24) mmol/L Sodium (137-145) mmol/L Chloride (98-107) mmol/L Carbon Dioxide (22-30) mmol/L BUN (9-20) mg/dL Creatinine (0.66-1.25) mg/dL Glucose (74-99) mg/dL POC Glucose (mg/dL) 193 H (75-99) mg/dL Calcium (8.4-10.2) mg/dL Magnesium (1.6-2.3) mg/dL AST (17-59) U/L ALT (4-49) U/L Total Protein (6.3-8.2) g/dL Albumin (3.5-5.0) g/dL Assessment and Plan Plan: -STEMI status post cardiac cath and stent placement in the RCA Acute hypoxic respiratory failure secondary to congestive heart failure acute systolic dysfunction with the acute exacerbation, patient is presently intubated patient was intubated on 09/24/2019 -Asystole, cardio pulmonary arrest and asystole for 7 minutes on 08/24/2019 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 fib, Acute kidney injury prerenal azotemia secondary to heart failure exacerbation -Hypervolemic hyponatremia secondary to heart failure Hypotension Fall, with no dizziness or syncope -Patient is on levofloxacin because of possibly of pneumonia Hypertension Hyperlipidemia History of prostate cancer status post radiotherapy
--- NOTE | 2019-09-25 14:05 | XR ---
EXAMINATION TYPE: XR chest 1V portable DATE OF EXAM: 09/25/2019 COMPARISON: Prior chest x-ray 09/25/2019 Time HISTORY: Intubated, central venous catheter placement TECHNIQUE: Single frontal view of the chest is obtained. FINDINGS: Findings are similar to prior exam. There may be some slight interval improved aeration at the upper lobes. Endotracheal and NG tube, transvenous pacemaker are again noted. Heart remains enla rged. Bibasilar increased density, diffuse airspace disease persists. Left subclavian central venous catheter is been placed in the interval. Distal tip is overlying the cavoatrial junction. No pneumoth orax. IMPRESSION: No evident complication status post central venous catheter placement.
--- NOTE | 2019-09-25 14:18 | P.PN ---
Subjective Progress Note Date: 09/25/19 This is a 79-year-old gentleman with history of hypertension who presented with inferior wall myocardial infarction. Patient had a cardiac catheterization and stent placement of the mid RCA. His CPK was high in the troponin was in the range of 77 on admission. His echo Cardigan showed an ejection fraction of 45%. Patient is complaining of some congestion and seemed to be mild short of breath. Chest x-ray showed evidence of congestive heart failure. Heart appeared to be regular. No peripheral edema. I'm going to start him on IV Lasix 40 mg and start him by mouth Lasix. We'll also give potassium supplement. Rest of the medication to be continued. We'll continue follow his input and output. Follow blood work tomorrow. Further condition depend upon the clinical course. We'll continue to monitor him in intensive care unit 09/21/2019: This patient is admitted to the hospital with inferior wall MT, probably subacute. Patient had stent placement. His eldest was an ejection fraction of 40% to 45% with hypokinesis of the inferior wall. Patient has been short of breath. A chest x-ray showed some evidence of possible pulmonary edema and possible atypical pneumonia involving the right lower lobe. Patient does have white count elevation. Clinically he does have a slow murmur in the apical area and also left sternal border. Rule out possibility of mitral regurgitation. I'm going to repeat the echocardiogram. His urine output is fair. Pulmonary consult is requested regarding possible pneumonia. 09/22/2019: This patient is a status post subacute inferior wall MT and stent placement. Patient is still complaining of shortness of breath and congestion. His lungs show scattered rhonchi and mild wheezing. Chest x-ray shows bilateral findings suggestive of pulmonary edema more so on the right side. Atypical pneumonia cannot be excluded. His blood pressure is running low. His creatinine is also going up. I'm going to start him on dobutamine 5 mics per KG. Patient is also on Lasix. Continue rest of the medication. His repeat echocardiogram did not reveal any significant valvular abnormalities. Patient does have systolic murmur. We'll make consider KIM examination ,if patient doesn't improve promptly 09/23/2019: This patient is status post subacute inferior wall MT and stent placement of the RCA. Patient hasn't been having good urinary output. He s eemed to have acute tubular necrosis. He was started on dobutamine IV. There is some pickup in the urinary output. Patient comes is not feeling well. His chest x-ray showed some improvement in the vascular congestion. There is infiltrated in the right base which could be pneumonia. His her empirically on antibiotics. Patient is being followed by nephrology. We'll continue monitor his renal functions. Further recommendations depend upon critical course. Clinically patient has a systolic murmur. However echocardiogram did not show any significant valvular abnormalities. He patient condition doesn't improve, may consider KIM examination. 09/24/2019: This patient is admitted with subacute inferior wall MT and had stent placement of the RCA. Patient also has severe iliac disease bilaterally. Patient hasn't been progressing well. Developed possible pneumonia and CHF and also renal failure. Urine output has been low. Patient was started on dobutamine. Patient also had intermittent atrial fibrillation. He was initiated on amiodarone yesterday. Today he developed severe bradycardia and cardiac arrest. Patient subsequently had a temporary pacemaker implantation. He still remains hypotensive. He is on dobutamine and we also going to start him on Levophed. Discussed with family about CODE STATUS and extent of care. They're going to discuss and decide that they did consent to proceed with temporary pacemaker. Does have systolic murmur. A repeat echocardiogram also showed mild mitral regurgitation. Aortic valve function is normal. We'll continue current medical therapy. It. Prognosis is guarded. His creatinine is about 2.67. Nephrology is also following the case 09/25/2019: This patient is admitted with subacute inferior wall myocardial infarction complicated with CHF, renal failure and an episode of severe bradycardia and also cardiac arrest. Patient also has been having episodes of atrial fibrillation. Currently patient had a, temporary pacemaker. Patient is on IV pressors and also on IV dobutam, along with heparin. His urine output has improved. His creatinine is stable. A chest x-ray show bilateral infiltrates and pleural effusion. Will continue current. Management. Renal follow-up. Prognosis is guarded Objective - Vital Signs Vital signs: Vital Signs Temp 97.8 F 09/25/19 12:00 Pulse 102 H 09/25/19 13:00 Resp 16 09/25/19 13:00 BP 124/82 09/25/19 13:00 Pulse Ox 96 09/25/19 13:00 Intake & Output 09/24/19 09/25/19 09/25/19 18:59 06:59 18:59 Intake Total 2099.807 1433.692 514.000 Output Total 295 590 60 Balance 1804.807 843.692 454.000 Weight 78.5 kg 88.1 kg Intake: IV 402.7 470 40 0.9 120 230 20 0.9NS Sheath 140 240 20 Amiodarone 300 mg In 75 Dextrose 5% in Water 250 ml @ 0.5 MG/MIN 25 mls/hr IV .Q10H RJ Rx#: [id number] Amiodarone 360 mg In 33.3 Dextrose 5% in Water 200 ml @ 1 MG/MIN 33.333 mls/ hr IV .Q6H ONE Rx#: [id number] DOBUTamine DRIP 500 mg In 34.4 Dextrose/Water 1 250ml. bag @ 5 MCG/KG/MIN 11.88 mls/hr IV .Q21H3M RJ Rx# :[id number] Intake, IV Titration 1567.107 693.692 354.000 Amount Amiodarone 300 mg In 184.167 Dextrose 5% in Water 250 ml @ 0.5 MG/MIN 25 mls/hr IV .Q10H RJ Rx#: [id number] DOBUTamine DRIP 500 mg In 91.377 109.89 Dextrose/Water 1 250ml. bag @ 5 MCG/KG/MIN 11.88 mls/hr IV .Q21H3M RJ Rx# :[id number] Heparin Sod,Pork in 0.45% 250.000 155 NaCl 25,000 unit In 0.45 % NaCl 1 250ml.bag @ 12.5 UNITS/KG/HR 9.95 mls/hr IV .Q24H RJ Rx#: [id number] Norepinephrine 4 mg In 8.976 168.713 254.000 Sodium Chloride 0.9% 250 ml @ 0.05 MCG/KG/MIN 14. 173 mls/hr IV .[id number] RJ Rx#:[id number] Propofol 1,000 mg In 32.587 260.089 100 Empty Bag 1 bag @ Titrate IV .Q0M RJ Rx#: [id number] Sodium Chloride 0.9% 1, 1000 000 ml @ 999 mls/hr IV . Q1H1M ONE Rx#:[id number] Oral 60 Tube Feeding 40 180 120 Other 30 90 Output: Urine 295 590 60 Other: Voiding Method Indwelling Catheter Indwelling Catheter Indwelling Catheter ABP, PAP, CO, CI - Last Documented Arterial Blood Pressure 113/67 - Exam GENERAL EXAM: Patient is intubated and sedated HEENT: Normocephalic. Normal reaction of pupils, equal size, normal range of extraocular motion. No erythema or exudates in the throat. NECK: No masses, no nuchal rigidity. CHEST: No chest wall deformity. LUNGS: Scattered rhonchi and wheezes HEART: S1, S2 heard. Systolic murmur heard at the apex and left sternal border ABDOMEN: No hepatosplenomegaly, normal bowel sounds, no guarding or rigidity. SKIN: No rashes CENTRAL NERVOUS SYSTEM: No focal deficits. EXTREMITIES: No cyanosis, clubbing or edema. - Labs CBC & Chem 7: 09/25/19 04:26 09/25/19 04:26 Labs: Abnormal Lab Results - Last 24 Hours (Table) 09/24/19 09/24/19 09/25/19 Range/Units 18:21 23:41 04:26 WBC 16.6 H (3.8-10.6) k/uL RBC 3.40 L (4.30-5.90) m/uL Hgb 11.0 L (13.0-17.5) gm/dL Hct 34.1 L (39.0-53.0) % Neutrophils # 14.1 H (1.3-7.7) k/uL APTT (22.0-30.0) sec ABG pCO2 (35-45) mmHg ABG HCO3 (21-25) mmol/L ABG Total CO2 (19-24) mmol/L Sodium (137-145) mmol/L Chloride (98-107) mmol/L Carbon Dioxide (22-30) mmol/L BUN (9-20) mg/dL Creatinine (0.66-1.25) mg/dL Glucose (74-99) mg/dL POC Glucose (mg/dL) 130 H 150 H (75-99) mg/dL Calcium (8.4-10.2) mg/dL Magnesium (1.6-2.3) mg/dL AST (17-59) U/L ALT (4-49) U/L Total Protein (6.3-8.2) g/dL Albumin (3.5-5.0) g/dL 09/25/19 09/25/19 09/25/19 Range/Units 04:26 05:08 11:23 WBC (3.8-10.6) k/uL RBC (4.30-5.90) m/uL Hgb (13.0-17.5) gm/dL Hct (39.0-53.0) % Neutrophils # (1.3-7.7) k/uL APTT 73.4 H (22.0-30.0) sec ABG pCO2 26 L (35-45) mmHg ABG HCO3 18 L (21-25) mmol/L ABG Total CO2 18 L (19-24) mmol/L Sodium 126 L (137-145) mmol/L Chloride 96 L (98-107) mmol/L Carbon Dioxide 18 L (22-30) mmol/L BUN 99 H (9-20) mg/dL Creatinine 2.64 H (0.66-1.25) mg/dL Glucose 130 H (74-99) mg/dL POC Glucose (mg/dL) (75-99) mg/dL Calcium 7.3 L (8.4-10.2) mg/dL Magnesium 3.3 H (1.6-2.3) mg/dL AST 1225 H (17-59) U/L ALT 867 H (4-49) U/L Total Protein 5.1 L (6.3-8.2) g/dL Albumin 2.9 L (3.5-5.0) g/dL 09/25/19 Range/Units 11:44 WBC (3.8-10.6) k/uL RBC (4.30-5.90) m/uL Hgb (13.0-17.5) gm/dL Hct (39.0-53.0) % Neutrophils # (1.3-7.7) k/uL APTT (22.0-30.0) sec ABG pCO2 (35-45) mmHg ABG HCO3 (21-25) mmol/L ABG Total CO2 (19-24) mmol/L Sodium (137-145) mmol/L Chloride (98-107) mmol/L Carbon Dioxide (22-30) mmol/L BUN (9-20) mg/dL Creatinine (0.66-1.25) mg/dL Glucose (74-99) mg/dL POC Glucose (mg/dL) 193 H (75-99) mg/dL Calcium (8.4-10.2) mg/dL Magnesium (1.6-2.3) mg/dL AST (17-59) U/L ALT (4-49) U/L Total Protein (6.3-8.2) g/dL Albumin (3.5-5.0) g/dL Assessment and Plan (1) Acute transmural inferior wall MT Current Visit: Yes Status: Acute Code(s): I21.19 - STEMI INVOLVING OTH CORONARY ARTERY OF INFERIOR WALL SNOMED Code(s): 21132424 (2) Acute combined systolic and diastolic heart failure Current Visit: Yes Status: Acute Code(s): I50.41 - ACUTE COMBINED SYSTOLIC AND DIASTOLIC (CONGESTIVE) HRT FAIL SNOMED Code(s): 377829319945972 (3) Essential hypertension Current Visit: Yes Status: Acute Code(s): I10 - ESSENTIAL (PRIMARY) HYPERTENSION SNOMED Code(s): 00506146 (4) Cardiac arrest Current Visit: Yes Status: Acute Code(s): I46.9 - CARDIAC ARREST, CAUSE UNSPECIFIED SNOMED Code(s): 464203964 Plan: His urine output has improved. Creatinine is slightly better. Chest x-ray shows worsening infiltrates and effusion. We will continue current medical therapy. Renal follow-up. Further recommendations will depend upon clinical Course.
[2019-09-25] MEDS: NOREPINEPHRINE 32 MG in SODIUM CHLORIDE 0.9% 218 ML IV SCH (15:19)
[2019-09-25] MEDS: HEPARIN SOD,PORK IN 0.45% NACL 25,000 UNIT in 0.45% NACL 1 250ML.BAG IV SCH (15:22)
--- NOTE | 2019-09-25 15:48 | PN ---
PROGRESS NOTE Patient is seen for followup for acute kidney injury, mostly ATN., initially oliguric currently nonoliguric. Patient is status post cardiac. Patient is status post Code Blue yesterday with the severe bradycardia. He was eventually intubated. Patient also had a pacemaker placed. He currently remains on the vent. Levophed is actually increased to 0.7 mcg/kg. Urine output has picked up to about 60-75 cc an hour now. The patient is sedated. He is maintained on IV dobutamine and heparin drip along with the Levophed. Patient is tolerating tube feeds. PHYSICAL EXAMINATION: On examination today, patient is sedated he is on the vent. Blood pressure was 97/61, heart rate 71 per minute he is afebrile examination of the heart S1, S2. Examination of the lungs, bilateral breath sounds are heard. Abdomen is soft, nontender. Examination of lower extremities shows no significant edema. LAB: 1. Show lab show sodium 126, potassium 3.9, chloride 96, CO2 is 18, BUN 99, creatinine 2.64 assessment acute kidney injury ATN secondary to contrast nephropathy and hypo tension and hypoperfusion, currently nonoliguric. Serum creatinine staying about the same. 2. Hyponatremia associated with hypotonic fluid with dobutamine as well as underlying renal failure serum sodium staying stable at about 126-127 mEq/L. I will hold off on the free water down the feeding tube. 3. Metabolic acidosis maintained on oral sodium bicarb. 4. Status post acute DE status post coronary stent placement and pacemaker placement for bradycardia. 5. Intermittent AF or atrial fibrillation, maintained on IV heparin. The plan hold free water down the feeding tube. Continue with the sodium bicarb tablets. Avoid nephrotoxic agents. Repeat labs in a.m. MMODL / IJN: [id number] /
--- NOTE | 2019-09-25 16:00 | ECHOF ---
Referral Reason:code blue MEASUREMENTS -------- HEIGHT: 0.0 cm WEIGHT: 0.0 kg BP: RAP: 15.00 mmHg RVSP: 39.32 mmHg FINDINGS -------- Limited Study Overall left ventricular systolic function is moderately impaired with, an EF between 35 - 40 %. Ba zack lateral LV wall motion is akinetic. Basal inferior LV wall motion is akinetic. Basal infero septal LV wall motion is akinetic. Mid lateral LV wall motion is akinetic. Mid inferior LV wall motion is akinetic. Mid inferoseptal LV wall motion is akinetic. There is mild aortic regurgitation. Mild mitral regurgitation is present. [id number] tricuspid regurgitation present. There is mild pulmonary hypertension. The right ventricular systolic pressure, as measured by Doppler, is 39.32mmHg. Trace/mild (physiologic) pulmonic regurgitation. CONCLUSIONS -------- 1. Limited Study 2. Overall left ventricular systolic function is moderately impaired with, an EF between 35 - 40 %. 3. Basal lateral LV wall motion is akinetic. 4. Basal inferior LV wall motion is akinetic. 5. Basal inferoseptal LV wall motion is akinetic. 6. Mid lateral LV wall motion is akinetic. 7. Mid inferior LV wall motion is akinetic. 8. Mid inferoseptal LV wall motion is akinetic. 9. There is mild aortic regurgitation. 10. Mild mitral regurgitation is present. 11. Clvy-xl-szutxzer tricuspid regurgitation present. 12. There is mild pulmonary hypertension. 13. Trace/mild (physiologic) pulmonic regurgitation. TICKER WIRER: Nikia Delgado RDCS
[2019-09-25] MEDS: MORPHINE SULFATE 2 MG/ML SYRINGE IVP PRN (16:41)
[2019-09-25 18:05] LABS: Glucose,Whole Blood 184 mg/dL (75-99)
--- NOTE | 2019-09-25 19:54 | PCN ---
PROCEDURE NOTE PROCEDURE: Left dorsalis pedis arterial line placement. Indications: Hemodynamic monitoring. Operators: 1. Alexandru Fontaine M.D. 2. Mara Snyder. 3. Tiana Cruz. A universal time-out was completed verifying correct patient, procedure, site, positioning, and implant(s) or special equipment if applicable. Zhao's test was performed to ensure adequate perfusion. The patient's left dorsalis pedis artery was employed. was prepped and draped in sterile fashion. 1% Lidocaine was used to anesthetize the area. An 18G Arrow arterial line was introduced into the left dorsalis pedis artery. The catheter was threaded over the guide wire and the needle was removed with appropriate pulsatile blood return and good waveform were noted once the catheter was inserted to the left dorsalis pedis artery. Blood loss was minimal. The catheter was then sutured in place to the skin and a sterile dressing applied. Perfusion to the extremity distal to the point of catheter insertion was checked and found to be adequate. The catheter was sutured in place. A sterile dressing was applied by the nurse. There was no immediate complication. The patient tolerated the procedure well. MMODL / IJN: [id number] /
[2019-09-26] MEDS: NOREPINEPHRINE 32 MG in SODIUM CHLORIDE 0.9% 218 ML IV SCH ×4 (00:09→16:22)
[2019-09-26] MEDS: INSULIN ASPART (NovoLOG) 100 UNIT/ML VIAL SQ SCH ×6 (00:09→23:46)
[2019-09-26] MEDS: ATORVASTATIN 80 MG TAB PO SCH ×2 (00:09→20:25)
[2019-09-26] MEDS: DOBUTamine DRIP 500 MG in DEXTROSE/WATER 1 250ML.BAG IV SCH ×3 (00:10→20:46)
[2019-09-26] MEDS: CHLORHEXIDINE GLUCONATE 15 ML CUP MUCOUS MEM SCH ×3 (00:10→20:25)
[2019-09-26] MEDS: METOPROLOL TARTRATE 12.5 MG TAB PO SCH (00:10)
[2019-09-26] MEDS: LEVOFLOXACIN 250 MG TAB PO SCH ×2 (00:10→20:25)
[2019-09-26] MEDS: SODIUM BICARBONATE TAB 650 MG TAB PO SCH ×4 (00:10→20:25)
[2019-09-26 00:18] LABS: Glucose,Whole Blood 174 mg/dL (75-99)
[2019-09-26] MEDS: IPRATROPIUM-ALBUTEROL 3 ML NEB INHALATION SCH ×6 (04:33→23:58)
[2019-09-26 04:40] LABS: HGB 11.7 gm/dL (13.0-17.5); MCH 33.5 pg (25.0-35.0); MCHC 33.5 g/dL (31.0-37.0); MCV 99.8 fL (80.0-100.0); Mean Platelet Volume 7.6; Platelet Count 355 k/uL (150-450); RBC 3.51 m/uL (4.30-5.90); RDW 13.7 % (11.5-15.5)
[2019-09-26 04:55] LABS: Magnesium 3.5 mg/dL (1.6-2.3); Potassium 3.4 mmol/L (3.5-5.1)
[2019-09-26 05:09] LABS: Anisocytosis (M) Present; Band Neutrophils % 1 %; Eosinophils # (M) 0.23 k/uL (0-0.7); Lymphocytes # (M) 2.05 k/uL (1.0-4.8); Metamyelocytes # (M) 0.46 k/uL (0); Metamyelocytes % 2 %; Monocytes # (M) 1.14 k/uL (0-1.0); Myelocytes # (M) 0.46 k/uL (0); Myelocytes % 2 %; Neutrophils % (M) 82 %; Nucleated Red Blood Cells 3 /100 WBC (0-0); Polychromasia Present; Total Cells Counted 200; WBC 22.8 k/uL (3.8-10.6)
[2019-09-26 05:23] LABS: ABG Base Excess -3.8 mmol/L; ABG HCO3 20 mmol/L (21-25); ABG Oxygen Saturation 95.8 % (94-97); ABG PCO2 31 mmHg (35-45); ABG PH 7.44 (7.35-7.45); ABG PO2 85 mmHg (83-108); ABG TCO2 21 mmol/L (19-24); Allen Test Performed? Yes
[2019-09-26 05:39] LABS: Albumin 2.8 g/dL (3.5-5.0); Calcium 7.3 mg/dL (8.4-10.2); Total Protein 5.2 g/dL (6.3-8.2)
[2019-09-26 06:11] LABS: Glucose,Whole Blood 198 mg/dL (75-99)
[2019-09-26] MEDS ORDERED: Potassium Replacement Protocol 1 EACH MISC MISCELLANE PRN (06:14)
[2019-09-26] MEDS: POTASSIUM BICARBONATE/CIT AC 20 MEQ TABLET.EFF NG-TUBE SCH ×2 (06:20→09:07)
--- NOTE | 2019-09-26 07:22 | XR ---
EXAMINATION TYPE: XR chest 1V portable DATE OF EXAM: 09/26/2019 Comparison: 09/25/2019 Clinical History: 79 year-old male tube placement Findings: ET tube tip 2.4 cm from the mike. NG tube courses below the diaphragm. Either a mediastinal or samantha cardial drain is present. Left subclavian CVC tip in the right atrium. Heart remains enlarged. Dense atherosclerotic calcifications throughout the aorta. Patchy and confluent bilateral airspace disease greater in the mid and lower lungs with underlying effusions, right greater than left. Overall simila r to slightly worsened. Impression: Continued CHF with pulmonary edema, similar to minimally worsened in the interval. Continued moderate right and small left pleural effusions.
[2019-09-26] MEDS: CLOPIDOGREL 75 MG TAB PO SCH (09:08)
[2019-09-26] MEDS: PANTOPRAZOLE 40 MG/10 ML VIAL IVP SCH (09:08)
--- NOTE | 2019-09-26 09:30 | PN ---
PROGRESS NOTE PULMONARY/CRITICAL CARE PROGRESS NOTE: DATE OF SERVICE: 09/26/2019 Critical care time 33 minutes. This is a 79-year-old male admitted back on September [address]-segment elevation myocardial infarction. He had a stent placed in his right coronary artery. He was admitted with a diagnosis of MD, CHF, hypoxemia, and atrial fibrillation. Two days ago, he had an episode of asystole in cardiopulmonary arrest. He was intubated on September 23. He had 7 minutes of cardiopulmonary arrest with 7 minutes of cardiopulmonary resuscitation. He was intubated and mechanically ventilated. He did have eventual return of spontaneous circulation. The patient currently is on multiple drips including dobutamine at 5 mcg/kg per minute, norepinephrine 24 mcg/minute, heparin via weight-based protocol, propofol at 50 mcg/kg per minute and saline at 40 mL an hour. Vent settings include the volume assist-control mode rate of 12, tidal volume 450, FiO2 of 50%, PEEP of 5. Blood gases show a pO2 of 84, pCO2 of 30, and a pH of 7.43. Blood gases consistent with normoxemia in a mixed acid-base disturbance including a respiratory alkalosis and metabolic acidosis. I did tell the nurses that we wanted a daily interruption of sedation today. He is probably not weanable at this point. The patient has been having episodes of atrial fibrillation with RVR. He also is receiving nutrition ventrally via Vital high-protein at 53 with a goal of 53 mL an hour. Current vital signs reviewed. Temperature is 97.9, heart rate 107, respiratory rate is 12, blood pressure is 98/59 with mean 72, saturations are 93% on the 50%, 5 of PEEP. Appears in no acute distress. Currently sedated. HEENT: Examination is grossly unremarkable. There is an orally placed endotracheal tube and NG tube. NECK: Supple, full range of motion. No adenopathy. Neck veins are flat. There is a left subclavian triple-lumen catheter in place. CARDIOVASCULAR: Examination reveals tachycardia. He is in atrial fibrillation. He has a loud systolic murmur. LUNGS: Reveal diffuse coarse rhonchi. Breath sounds equal. No crackles. ABDOMEN: Soft, bowel sounds are noted. EXTREMITIES: Intact. No edema. There is a left dorsalis pedis arterial line. SKIN: Without rash. NEUROLOGIC: Examination cannot be currently evaluated because the patient is sedated heavily on propofol. LABS: Reviewed. White count 22.8, hemoglobin 11.7, hematocrit 35.0, platelet count 355,000. PTT is 91.1. Blood gases have been noted. Sodium 133, potassium 3.4, chloride 103, CO2 is 20, anion gap is 10. BUN and creatinine were 78 and 1.87. AST 970, ALT 862, albumin 2.8. Microbiology thus far is negative. A chest x-ray from this morning shows changes of CHF. MEDICATIONS: Reviewed. The patient is on Lipitor, chlorhexidine, Plavix, dobutamine, IV heparin, p.r.n. insulin, updrafts with DuoNeb, Levaquin, metoprolol, morphine sulfate, Narcan, sublingual nitroglycerin which will be discontinued, norepinephrine, Protonix, potassium replacement protocol, propofol, sodium bicarbonate tablets, and Flomax. ASSESSMENT: 1. Status post cardiopulmonary arrest with asystole and 7 minutes of cardiopulmonary resuscitation with eventual return of spontaneous circulation, of unclear etiology. 2. Hypoxemic respiratory failure requiring intubation and mechanical ventilation on September 24, 2019. 3. Acute inferior wall ST-segment elevation myocardial infarction, status post stenting of the right coronary artery. 4. Acute pulmonary edema secondary to acute systolic congestive heart failure and ischemic cardiomyopathy. 5. Benign essential hypertension. 6. Hyperlipidemia. 7. History of mild dementia. 8. Atrial fibrillation with RVR. 9. History of acute kidney injury. 10.Possible right lower lobe pneumonia. 11.Loud systolic murmur of unclear etiology. Without echocardiographic evidence of valvular heart disease. 12.Congestive hepatopathy. PLAN: The patient will continue on his current medications including dobutamine and norepinephrine. He remains on IV heparin and propofol for sedation. He is getting nourished centrally with Vital high-protein at 53 mL and hour which is goal. His blood gases are reasonable. No vent changes today. We did speak to Cardiology. They have no good explanation for the patient's loud heart murmur. We will do a daily interruption of sedation, although the patient is not a candidate for weaning. Additional recommendations and suggestions are forthcoming. Prognosis is guarded. Critical care time 33 minutes. MMODL / IJN: [id number] /
--- NOTE | 2019-09-26 10:06 | P.PN ---
Subjective Progress Note Date: 09/26/19 This is a 79-year-old gentleman with history of hypertension who presented with inferior wall myocardial infarction. Patient had a cardiac catheterization and stent placement of the mid RCA. His CPK was high in the troponin was in the range of 77 on admission. His echo Cardigan showed an ejection fraction of 45%. Patient is complaining of some congestion and seemed to be mild short of breath. Chest x-ray showed evidence of congestive heart failure. Heart appeared to be regular. No peripheral edema. I'm going to start him on IV Lasix 40 mg and start him by mouth Lasix. We'll also give potassium supplement. Rest of the medication to be continued. We'll continue follow his input and output. Follow blood work tomorrow. Further condition depend upon the clinical course. We'll continue to monitor him in intensive care unit 09/21/2019: This patient is admitted to the hospital with inferior wall HI, probably subacute. Patient had stent placement. His eldest was an ejection fraction of 40% to 45% with hypokinesis of the inferior wall. Patient has been short of breath. A chest x-ray showed some evidence of possible pulmonary edema and possible atypical pneumonia involving the right lower lobe. Patient does have white count elevation. Clinically he does have a slow murmur in the apical area and also left sternal border. Rule out possibility of mitral regurgitation. I'm going to repeat the echocardiogram. His urine output is fair. Pulmonary consult is requested regarding possible pneumonia. 09/22/2019: This patient is a status post subacute inferior wall HI and stent placement. Patient is still complaining of shortness of breath and congestion. His lungs show scattered rhonchi and mild wheezing. Chest x-ray shows bilateral findings suggestive of pulmonary edema more so on the right side. Atypical pneumonia cannot be excluded. His blood pressure is running low. His creatinine is also going up. I'm going to start him on dobutamine 5 mics per KG. Patient is also on Lasix. Continue rest of the medication. His repeat echocardiogram did not reveal any significant valvular abnormalities. Patient does have systolic murmur. We'll make consider KIM examination ,if patient doesn't improve promptly 09/23/2019: This patient is status post subacute inferior wall HI and stent placement of the RCA. Patient hasn't been having good urinary output. He s eemed to have acute tubular necrosis. He was started on dobutamine IV. There is some pickup in the urinary output. Patient comes is not feeling well. His chest x-ray showed some improvement in the vascular congestion. There is infiltrated in the right base which could be pneumonia. His her empirically on antibiotics. Patient is being followed by nephrology. We'll continue monitor his renal functions. Further recommendations depend upon critical course. Clinically patient has a systolic murmur. However echocardiogram did not show any significant valvular abnormalities. He patient condition doesn't improve, may consider KIM examination. 09/24/2019: This patient is admitted with subacute inferior wall HI and had stent placement of the RCA. Patient also has severe iliac disease bilaterally. Patient hasn't been progressing well. Developed possible pneumonia and CHF and also renal failure. Urine output has been low. Patient was started on dobutamine. Patient also had intermittent atrial fibrillation. He was initiated on amiodarone yesterday. Today he developed severe bradycardia and cardiac arrest. Patient subsequently had a temporary pacemaker implantation. He still remains hypotensive. He is on dobutamine and we also going to start him on Levophed. Discussed with family about CODE STATUS and extent of care. They're going to discuss and decide that they did consent to proceed with temporary pacemaker. Does have systolic murmur. A repeat echocardiogram also showed mild mitral regurgitation. Aortic valve function is normal. We'll continue current medical therapy. It. Prognosis is guarded. His creatinine is about 2.67. Nephrology is also following the case 09/25/2019: This patient is admitted with subacute inferior wall myocardial infarction complicated with CHF, renal failure and an episode of severe bradycardia and also cardiac arrest. Patient also has been having episodes of atrial fibrillation. Currently patient had a, temporary pacemaker. Patient is on IV pressors and also on IV dobutam, along with heparin. His urine output has improved. His creatinine is stable. A chest x-ray show bilateral infiltrates and pleural effusion. Will continue current. Management. Renal follow-up. Prognosis is guarded 09/26/2019: This patient is admitted with subacute inferior wall HI complicated by CHF, renal failure and episodes of bradycardia. Patient had a temporary pacemaker insertion. So far. Patient hasn't been using it. Patient's urine output is slowly improving. There is improvement in creatinine level. He continues to have systolic murmur. A repeat echocardiogram also did not reveal any significant valvular abnormality. May consider KIM examination for further evaluation here patient also has significant bilateral iliac disease. We'll continue to monitor his pulses in the legs. He patient doesn't use the pac emaker by tomorrow, we'll may turn it off. Prognosis still guarded Objective - Vital Signs Vital signs: Vital Signs Temp 97.9 F 09/26/19 04:00 Pulse 107 H 09/26/19 08:04 Resp 16 09/26/19 07:00 BP 98/59 09/26/19 07:00 Pulse Ox 93 L 09/26/19 07:00 Intake & Output 09/25/19 09/26/19 09/26/19 18:59 06:59 18:59 Intake Total 2449.423 9580.350 127.441 Output Total 1490 1225 75 Balance 386.000 242.350 52.441 Weight 81.4 kg Intake: IV 507 516 43 0.9 240 240 20 0.9NS Sheath 240 240 20 Arterial Line 27 36 3 Intake, IV Titration 799.000 395.350 31.441 Amount DOBUTamine DRIP 500 mg In 250 Dextrose/Water 1 250ml. bag @ 5 MCG/KG/MIN 11.88 mls/hr IV .Q21H3M RJ Rx# :[id number] Heparin Sod,Pork in 0.45% 95 145.350 NaCl 25,000 unit In 0.45 % NaCl 1 250ml.bag @ 12.5 UNITS/KG/HR 9.95 mls/hr IV .Q24H RJ Rx#: [id number] Norepinephrine 32 mg In 250 31.441 Sodium Chloride 0.9% 218 ml @ 0.65 MCG/KG/MIN 26. 843 mls/hr IV .Q9H19M RJ Rx#:[id number] Norepinephrine 4 mg In 254.000 Sodium Chloride 0.9% 250 ml @ 0.05 MCG/KG/MIN 14. 173 mls/hr IV .C35Y31V RJ Rx#:[id number] Propofol 1,000 mg In 200 Empty Bag 1 bag @ Titrate IV .Q0M RJ Rx#: [id number] Oral 100 Tube Feeding 470 556 53 Output: Urine 1490 1225 75 Other: Voiding Method Indwelling Catheter Indwelling Catheter ABP, PAP, CO, CI - Last Documented Arterial Blood Pressure 82/51 - Exam GENERAL EXAM: Patient is intubated and sedated HEENT: Normocephalic. Normal reaction of pupils, equal size, normal range of extraocular motion. No erythema or exudates in the throat. NECK: No masses, no nuchal rigidity. CHEST: No chest wall deformity. LUNGS: Scattered rhonchi and wheezes HEART: S1, S2 heard. Systolic murmur heard at the apex and left sternal border ABDOMEN: No hepatosplenomegaly, normal bowel sounds, no guarding or rigidity. SKIN: No rashes CENTRAL NERVOUS SYSTEM: No focal deficits. EXTREMITIES: No cyanosis, clubbing or edema. - Labs CBC & Chem 7: 09/26/19 04:10 09/26/19 04:10 Labs: Abnormal Lab Results - Last 24 Hours (Table) 09/19/19 09/21/19 09/25/19 Range/Units 08:02 18:26 11:23 WBC (3.8-10.6) k/uL RBC (4.30-5.90) m/uL Hgb (13.0-17.5) gm/dL Hct (39.0-53.0) % Neutrophils # (Manual) (1.3-7.7) k/uL Monocytes # (Manual) (0-1.0) k/uL Metamyelocytes # (Man) (0) k/uL Myelocytes # (Manual) (0) k/uL Nucleated RBCs (0-0) /100 WBC APTT 73.4 H (22.0-30.0) sec ABG pCO2 (35-45) mmHg ABG HCO3 (21-25) mmol/L Sodium (137-145) mmol/L Potassium (3.5-5.1) mmol/L Carbon Dioxide (22-30) mmol/L BUN (9-20) mg/dL Creatinine (0.66-1.25) mg/dL Glucose (74-99) mg/dL POC Glucose (mg/dL) (75-99) mg/dL Plasma Lactic Acid Nakul 3.8 H* (0.7-2.0) mmol/L Calcium (8.4-10.2) mg/dL Magnesium (1.6-2.3) mg/dL AST (17-59) U/L ALT (4-49) U/L Alkaline Phosphatase (38-126) U/L Total Creatine Kinase 2933 H* (55-170) U/L CK-MB (CK-2) 127.0 H (0.0-2.4) ng/mL Troponin I 70.300 H* (0.000-0.034) ng/mL Total Protein (6.3-8.2) g/dL Albumin (3.5-5.0) g/dL 09/25/19 09/25/19 09/25/19 Range/Units 11:44 18:03 21:15 WBC (3.8-10.6) k/uL RBC (4.30-5.90) m/uL Hgb (13.0-17.5) gm/dL Hct (39.0-53.0) % Neutrophils # (Manual) (1.3-7.7) k/uL Monocytes # (Manual) (0-1.0) k/uL Metamyelocytes # (Man) (0) k/uL Myelocytes # (Manual) (0) k/uL Nucleated RBCs (0-0) /100 WBC APTT 82.5 H (22.0-30.0) sec ABG pCO2 (35-45) mmHg ABG HCO3 (21-25) mmol/L Sodium (137-145) mmol/L Potassium (3.5-5.1) mmol/L Carbon Dioxide (22-30) mmol/L BUN (9-20) mg/dL Creatinine (0.66-1.25) mg/dL Glucose (74-99) mg/dL POC Glucose (mg/dL) 193 H 184 H (75-99) mg/dL Plasma Lactic Acid Nakul (0.7-2.0) mmol/L Calcium (8.4-10.2) mg/dL Magnesium (1.6-2.3) mg/dL AST (17-59) U/L ALT (4-49) U/L Alkaline Phosphatase (38-126) U/L Total Creatine Kinase (55-170) U/L CK-MB (CK-2) (0.0-2.4) ng/mL Troponin I (0.000-0.034) ng/mL Total Protein (6.3-8.2) g/dL Albumin (3.5-5.0) g/dL 09/26/19 09/26/19 09/26/19 Range/Units 00:16 04:10 04:10 WBC 22.8 H (3.8-10.6) k/uL RBC 3.51 L (4.30-5.90) m/uL Hgb 11.7 L (13.0-17.5) gm/dL Hct 35.0 L (39.0-53.0) % Neutrophils # (Manual) 18.90 H (1.3-7.7) k/uL Monocytes # (Manual) 1.14 H (0-1.0) k/uL Metamyelocytes # (Man) 0.46 H (0) k/uL Myelocytes # (Manual) 0.46 H (0) k/uL Nucleated RBCs 3 H (0-0) /100 WBC APTT 91.1 H (22.0-30.0) sec ABG pCO2 (35-45) mmHg ABG HCO3 (21-25) mmol/L Sodium (137-145) mmol/L Potassium (3.5-5.1) mmol/L Carbon Dioxide (22-30) mmol/L BUN (9-20) mg/dL Creatinine (0.66-1.25) mg/dL Glucose (74-99) mg/dL POC Glucose (mg/dL) 174 H (75-99) mg/dL Plasma Lactic Acid Nakul (0.7-2.0) mmol/L Calcium (8.4-10.2) mg/dL Magnesium (1.6-2.3) mg/dL AST (17-59) U/L ALT (4-49) U/L Alkaline Phosphatase (38-126) U/L Total Creatine Kinase (55-170) U/L CK-MB (CK-2) (0.0-2.4) ng/mL Troponin I (0.000-0.034) ng/mL Total Protein (6.3-8.2) g/dL Albumin (3.5-5.0) g/dL 09/26/19 09/26/19 09/26/19 Range/Units 04:10 05:19 06:09 WBC (3.8-10.6) k/uL RBC (4.30-5.90) m/uL Hgb (13.0-17.5) gm/dL Hct (39.0-53.0) % Neutrophils # (Manual) (1.3-7.7) k/uL Monocytes # (Manual) (0-1.0) k/uL Metamyelocytes # (Man) (0) k/uL Myelocytes # (Manual) (0) k/uL Nucleated RBCs (0-0) /100 WBC APTT (22.0-30.0) sec ABG pCO2 31 L (35-45) mmHg ABG HCO3 20 L (21-25) mmol/L Sodium 133 L (137-145) mmol/L Potassium 3.4 L (3.5-5.1) mmol/L Carbon Dioxide 20 L (22-30) mmol/L BUN 78 H (9-20) mg/dL Creatinine 1.87 H (0.66-1.25) mg/dL Glucose 175 H (74-99) mg/dL POC Glucose (mg/dL) 198 H (75-99) mg/dL Plasma Lactic Acid Nakul (0.7-2.0) mmol/L Calcium 7.3 L (8.4-10.2) mg/dL Magnesium 3.5 H (1.6-2.3) mg/dL AST 970 H (17-59) U/L ALT 862 H (4-49) U/L Alkaline Phosphatase 136 H (38-126) U/L Total Creatine Kinase (55-170) U/L CK-MB (CK-2) (0.0-2.4) ng/mL Troponin I (0.000-0.034) ng/mL Total Protein 5.2 L (6.3-8.2) g/dL Albumin 2.8 L (3.5-5.0) g/dL Assessment and Plan (1) Acute transmural inferior wall HI Current Visit: Yes Status: Acute Code(s): I21.19 - STEMI INVOLVING OTH CORONARY ARTERY OF INFERIOR WALL SNOMED Code(s): 81627930 (2) Acute combined systolic and diastolic heart failure Current Visit: Yes Status: Acute Code(s): I50.41 - ACUTE COMBINED SYSTOLIC AND DIASTOLIC (CONGESTIVE) HRT FAIL SNOMED Code(s): 595635123317097 (3) Essential hypertension Current Visit: Yes Status: Acute Code(s): I10 - ESSENTIAL (PRIMARY) HYPERTENSION SNOMED Code(s): 75630201 (4) Cardiac arrest Current Visit: Yes Status: Acute Code(s): I46.9 - CARDIAC ARREST, CAUSE UNSPECIFIED SNOMED Code(s): 256559481 Plan: Patient seemed to be gradually improving. His creatinine is improved and urine output is improved. Chest x-ray shows some improvement. Patient still has systolic murmur at the apex. The etiology of this is not clear. If necessary, may consider KIM examination. We'll continue current management. Patient hasn't been using pacemaker. May discontinue pacemaker in 24-48 hours
[2019-09-26] MEDS: PROPOFOL 1,000 MG in EMPTY BAG 1 BAG IV SCH ×3 (10:08→20:15)
--- NOTE | 2019-09-26 11:30 | PN ---
PROGRESS NOTE Patient is seen for followup for acute kidney injury, mainly ATN associated with hypotension, hypoperfusion. Renal function has improved. Urine output is stable at 60 to 100 mL an hour. This morning sedation is being weaned off. Patient is stable on the vent. FiO2 is at 50%. He remains on Levophed, now down to about 0.4 mcg/kg from 0.7 yesterday. PHYSICAL EXAMINATION: On examination today, blood pressure 102/66, heart rate 102 per minute, he is afebrile. Examination of the heart S1, S2. Examination of the lungs, bilateral breath sounds are heard. Abdomen is soft, nontender. Examination of the lower extremities shows no evidence of edema. TECHNICIAN exam cannot be assessed. LABS: Show sodium 133, potassium 3.4, chloride 103, CO2 is 20, BUN 70, creatinine 1.87, hemoglobin 11.7 g/dL. ASSESSMENT: 1. Acute kidney injury ATN secondary to contrast nephropathy and hemodynamic instability. Currently, nonoliguric initially oliguric. Renal function is improving. 2. Status post cardiac arrest with bradycardia, currently not requiring the temporary pacemaker that was placed post cardiac arrest. 3. Hypokalemia, status post replacement. 4. Ventilator-dependent respiratory failure, status post cardiac arrest. Currently sedation is being weaned off, patient is stable on the vent. 5. Status post acute myocardial infarction, status post cardiac catheterization and coronary stent placement to mid right coronary artery. 6. Cardiomyopathy, ejection fraction at 45%. 7. Congestive heart failure, acute on top of chronic, currently improved, now patient is not on Lasix. 8. Hyponatremia, associated with hypotonic fluid and renal failure, currently improved. Patient is not maintained on any free water down the feeding tube. PLAN: Continue off IV fluids as well as Lasix. Repeat labs in a.m. Continue to avoid nephrotoxic agents. MMODL / IJN: [id number] /
[2019-09-26 12:06] LABS: Glucose,Whole Blood 197 mg/dL (75-99)
[2019-09-26 15:02] LABS: Glucose,Whole Blood 233 mg/dL (75-99)
--- NOTE | 2019-09-26 16:52 | P.PN ---
Subjective 79 years old male with past medical history of hypertension, hyperlipidemia, dementia, prostate cancer status post radiotherapy , patient presents because of chest pain found to have STEMI, he underwent cardiac cath status post stent placement in the right coronary artery. He is in the ICU. His creatinine increased today to 1.4, WBC is high at 18.6 and 19.6 K, sodium 131, his chest x-ray showing pulmonary congestion with possible interstitial pneumonia He saturating 90s on 7 L/m oxygen via nasal cannula. Social Sciences Instructor already given 1 dose of Lasix IV and continued on 40 mg by mouth daily, 1 going to give him another dose of Lasix. Blood pressure is on the low normal but he is tachypneic at 35. A but that side nurse his breathing is li ttle better in the evening than in the morning and he did not need BiPAP for now. He is also on aspirin and Plavix, he is on metoprolol 12.5 mg and lisinopril 2.5 mg, we going to hold lisinopril for now Also call pulmonary and nephrology consult 09/21/2019 Patient breathing easier but however his significantly tachypneic and mid 20s, he saturating 94% on 9 L oxygen via nasal cannula. His blood pressure 96/57 and heart rate 77. He still bleeding from dyspnea but no chest pain, he has little cough with clear phlegm. This morning he was trying to get out of bed to the restroom by himself when he fell on hit his head in the forehead area. Chest x-ray: Pulmonary edema, atypical pneumonia, some right lower lobe pneumonia WBC this morning is 18.1 K with slight improvement. Sodium 132, creatinine stable at 1.5. Procol stone and is elevated at 0.23 Patient is currently on by mouth Lasix, lisinopril is held, thaw shed heater tender recommended to continue with metoprolol 12.5, we going to check with cardiology about holding parameters. Continue with Levaquin. Ordered EKG 09/22/19 Patient awake and alert, his breathing is easier although he still complains from some chest pain with little dyspnea and the 10 cough. He is saturating 94% on 3-5 L of oxygen via nasal cannula. Rest of Vitas looks stable, however her blood pressure is on the low side, this morning was 78/56- 94/59 WBC is 17.1 K, hemoglobin 12.2, sodium 128, creatinine went up to 2.3. Lactic acid is elevated at 3.8. ProBNP is 41 500 sputum culture is pending. Chest x-ray showing stable changes with diffuse parenchymal changes or diffuse pneumonia or CHF/pulmonary edema Cardiology started the patient on dobutamine drip, also he got 1 dose of Lasix 60 mg IV 1 and on sodium bicarbonate tablets. Patient also is on Levaquin 250 mg by mouth daily, which is renal dose. Pulmonary nephrology and cardiology teams on the case 09/23/2019 Patient is still complaining of shortness of breath patient has significant rhonchi streaking heart failure exacerbation patient is presently on dobutamine drip does have atrial fibrillation for which patient is on Cardizem, patient is still hyponatremic receiving sodium bicarbonate tablets is also on Lasix, patient is on metoprolol as well. Patient was started on IV heparin. We will d yspnea Cardizem as it decreases as it [facility] heart failure. Nephrology is following the patient patient probably has hypovolemic hyponatremia Patient went into asystole after which the patient had a temporary transvenous a speckled placement , patient was also intubated because of respiratory failure. Patient is presently on dopamine drip and also on norepinephrine drip. Patient is presently sinus rhythm. Patient still has pulmonary edema on the chest x-ray nephrology is managing diuretics patient serum sodium continues to be low at 124we creatinine continued to go up to subacute 2.September Patient remains on ventilator support with FiO2 of 50% deep of 5 respiratory set up respiratory rate of 12. Blood gases did not show any significant abnormality. Patient remains are not epinephrine 8 mcg/m dobutamine drip propofol drip heparin drip presently sinus rhythm, nutrition via NG tube 09/26/2019 No significant change in his overall clinical condition except for some improvement in his serum sodium of 133 white blood cell count continued to go up patient remains on ventilator support patient is on 2 pressors. Fairly good urine output liver enzymes are coming down patient had a sick sedation medication today hypokalemia potassium is being replaced review of systems: Unable to obtain as patient is intubated and sedated at this time All inpatient medications were reviewed and appropriate changes in these medications as dictated in the interval history and assessment and plan. Objective - Vital Signs Vital signs: Vital Signs Temp 98.9 F 09/26/19 12:00 Pulse 109 H 09/26/19 16:37 Resp 13 09/26/19 15:00 BP 119/75 09/26/19 12:00 Pulse Ox 97 09/26/19 15:00 Intake & Output 09/25/19 09/26/19 09/26/19 18:59 06:59 18:59 Intake Total 3636.208 3027.350 1318.800 Output Total 1490 1225 760 Balance 386.000 242.350 558.800 Weight 81.4 kg 81.4 kg Intake: IV 507 516 387 0.9 240 240 180 0.9NS Sheath 240 240 180 Arterial Line 27 36 27 Intake, IV Titration 799.000 395.350 304.800 Amount DOBUTamine DRIP 500 mg In 250 Dextrose/Water 1 250ml. bag @ 5 MCG/KG/MIN 11.88 mls/hr IV .Q21H3M RJ Rx# :[id number] Heparin Sod,Pork in 0.45% 95 145.350 63.143 NaCl 25,000 unit In 0.45 % NaCl 1 250ml.bag @ 12.5 UNITS/KG/HR 9.95 mls/hr IV .Q24H RJ Rx#: [id number] Norepinephrine 32 mg In 250 156.635 Sodium Chloride 0.9% 218 ml @ 0.65 MCG/KG/MIN 26. 843 mls/hr IV .Q9H19M RJ Rx#:[id number] Norepinephrine 4 mg In 254.000 Sodium Chloride 0.9% 250 ml @ 0.05 MCG/KG/MIN 14. 173 mls/hr IV .J05Q98P RJ Rx#:[id number] Propofol 1,000 mg In 200 85.022 Empty Bag 1 bag @ Titrate IV .Q0M RJ Rx#: [id number] Oral 100 150 Tube Feeding 470 556 477 Output: Urine 1490 1225 760 Other: Voiding Method Indwelling Catheter Indwelling Catheter Indwelling Catheter ABP, PAP, CO, CI - Last Documented Arterial Blood Pressure 111/71 - Exam GENERAL:patient is intubated sedated HEENT: Pupils are round and equally reacting to light. EOMI. No scleral icterus. No conjunctival pallor. Normocephalic, atraumatic. No pharyngeal erythema. No thyromegaly. CARDIOVASCULAR: S1 and S2 present. No murmurs, rubs, or gallops. Does have elevated JVD -PULMONARY: Diffuse bilateral crackles ABDOMEN: Soft, nontender, nondistended, normoactive bowel sounds. No palpable organomegaly. MUSCULOSKELETAL: No joint swelling or deformity. EXTREMITIES: No cyanosis, clubbing, or pedal edema. NEUROLOGICAL: unable to assess. SKIN: No rashes. no petechiae. - Labs CBC & Chem 7: 09/26/19 04:10 09/26/19 04:10 Labs: Abnormal Lab Results - Last 24 Hours (Table) 09/19/19 09/21/19 09/25/19 Range/Units 08:02 18:26 18:03 WBC (3.8-10.6) k/uL RBC (4.30-5.90) m/uL Hgb (13.0-17.5) gm/dL Hct (39.0-53.0) % Neutrophils # (Manual) (1.3-7.7) k/uL Monocytes # (Manual) (0-1.0) k/uL Metamyelocytes # (Man) (0) k/uL Myelocytes # (Manual) (0) k/uL Nucleated RBCs (0-0) /100 WBC APTT (22.0-30.0) sec ABG pCO2 (35-45) mmHg ABG HCO3 (21-25) mmol/L Sodium (137-145) mmol/L Potassium (3.5-5.1) mmol/L Carbon Dioxide (22-30) mmol/L BUN (9-20) mg/dL Creatinine (0.66-1.25) mg/dL Glucose (74-99) mg/dL POC Glucose (mg/dL) 184 H (75-99) mg/dL Plasma Lactic Acid Nakul 3.8 H* (0.7-2.0) mmol/L Calcium (8.4-10.2) mg/dL Magnesium (1.6-2.3) mg/dL AST (17-59) U/L ALT (4-49) U/L Alkaline Phosphatase (38-126) U/L Total Creatine Kinase 2933 H* (55-170) U/L CK-MB (CK-2) 127.0 H (0.0-2.4) ng/mL Troponin I 70.300 H* (0.000-0.034) ng/mL Total Protein (6.3-8.2) g/dL Albumin (3.5-5.0) g/dL 09/25/19 09/26/19 09/26/19 Range/Units 21:15 00:16 04:10 WBC 22.8 H (3.8-10.6) k/uL RBC 3.51 L (4.30-5.90) m/uL Hgb 11.7 L (13.0-17.5) gm/dL Hct 35.0 L (39.0-53.0) % Neutrophils # (Manual) 18.90 H (1.3-7.7) k/uL Monocytes # (Manual) 1.14 H (0-1.0) k/uL Metamyelocytes # (Man) 0.46 H (0) k/uL Myelocytes # (Manual) 0.46 H (0) k/uL Nucleated RBCs 3 H (0-0) /100 WBC APTT 82.5 H (22.0-30.0) sec ABG pCO2 (35-45) mmHg ABG HCO3 (21-25) mmol/L Sodium (137-145) mmol/L Potassium (3.5-5.1) mmol/L Carbon Dioxide (22-30) mmol/L BUN (9-20) mg/dL Creatinine (0.66-1.25) mg/dL Glucose (74-99) mg/dL POC Glucose (mg/dL) 174 H (75-99) mg/dL Plasma Lactic Acid Nakul (0.7-2.0) mmol/L Calcium (8.4-10.2) mg/dL Magnesium (1.6-2.3) mg/dL AST (17-59) U/L ALT (4-49) U/L Alkaline Phosphatase (38-126) U/L Total Creatine Kinase (55-170) U/L CK-MB (CK-2) (0.0-2.4) ng/mL Troponin I (0.000-0.034) ng/mL Total Protein (6.3-8.2) g/dL Albumin (3.5-5.0) g/dL 09/26/19 09/26/19 09/26/19 Range/Units 04:10 04:10 05:19 WBC (3.8-10.6) k/uL RBC (4.30-5.90) m/uL Hgb (13.0-17.5) gm/dL Hct (39.0-53.0) % Neutrophils # (Manual) (1.3-7.7) k/uL Monocytes # (Manual) (0-1.0) k/uL Metamyelocytes # (Man) (0) k/uL Myelocytes # (Manual) (0) k/uL Nucleated RBCs (0-0) /100 WBC APTT 91.1 H (22.0-30.0) sec ABG pCO2 31 L (35-45) mmHg ABG HCO3 20 L (21-25) mmol/L Sodium 133 L (137-145) mmol/L Potassium 3.4 L (3.5-5.1) mmol/L Carbon Dioxide 20 L (22-30) mmol/L BUN 78 H (9-20) mg/dL Creatinine 1.87 H (0.66-1.25) mg/dL Glucose 175 H (74-99) mg/dL POC Glucose (mg/dL) (75-99) mg/dL Plasma Lactic Acid Nakul (0.7-2.0) mmol/L Calcium 7.3 L (8.4-10.2) mg/dL Magnesium 3.5 H (1.6-2.3) mg/dL AST 970 H (17-59) U/L ALT 862 H (4-49) U/L Alkaline Phosphatase 136 H (38-126) U/L Total Creatine Kinase (55-170) U/L CK-MB (CK-2) (0.0-2.4) ng/mL Troponin I (0.000-0.034) ng/mL Total Protein 5.2 L (6.3-8.2) g/dL Albumin 2.8 L (3.5-5.0) g/dL 09/26/19 09/26/19 09/26/19 Range/Units 06:09 10:26 12:05 WBC (3.8-10.6) k/uL RBC (4.30-5.90) m/uL Hgb (13.0-17.5) gm/dL Hct (39.0-53.0) % Neutrophils # (Manual) (1.3-7.7) k/uL Monocytes # (Manual) (0-1.0) k/uL Metamyelocytes # (Man) (0) k/uL Myelocytes # (Manual) (0) k/uL Nucleated RBCs (0-0) /100 WBC APTT 82.2 H (22.0-30.0) sec ABG pCO2 (35-45) mmHg ABG HCO3 (21-25) mmol/L Sodium (137-145) mmol/L Potassium (3.5-5.1) mmol/L Carbon Dioxide (22-30) mmol/L BUN (9-20) mg/dL Creatinine (0.66-1.25) mg/dL Glucose (74-99) mg/dL POC Glucose (mg/dL) 198 H 197 H (75-99) mg/dL Plasma Lactic Acid Nakul (0.7-2.0) mmol/L Calcium (8.4-10.2) mg/dL Magnesium (1.6-2.3) mg/dL AST (17-59) U/L ALT (4-49) U/L Alkaline Phosphatase (38-126) U/L Total Creatine Kinase (55-170) U/L CK-MB (CK-2) (0.0-2.4) ng/mL Troponin I (0.000-0.034) ng/mL Total Protein (6.3-8.2) g/dL Albumin (3.5-5.0) g/dL 09/26/19 Range/Units 14:51 WBC (3.8-10.6) k/uL RBC (4.30-5.90) m/uL Hgb (13.0-17.5) gm/dL Hct (39.0-53.0) % Neutrophils # (Manual) (1.3-7.7) k/uL Monocytes # (Manual) (0-1.0) k/uL Metamyelocytes # (Man) (0) k/uL Myelocytes # (Manual) (0) k/uL Nucleated RBCs (0-0) /100 WBC APTT (22.0-30.0) sec ABG pCO2 (35-45) mmHg ABG HCO3 (21-25) mmol/L Sodium (137-145) mmol/L Potassium (3.5-5.1) mmol/L Carbon Dioxide (22-30) mmol/L BUN (9-20) mg/dL Creatinine (0.66-1.25) mg/dL Glucose (74-99) mg/dL POC Glucose (mg/dL) 233 H (75-99) mg/dL Plasma Lactic Acid Nakul (0.7-2.0) mmol/L Calcium (8.4-10.2) mg/dL Magnesium (1.6-2.3) mg/dL AST (17-59) U/L ALT (4-49) U/L Alkaline Phosphatase (38-126) U/L Total Creatine Kinase (55-170) U/L CK-MB (CK-2) (0.0-2.4) ng/mL Troponin I (0.000-0.034) ng/mL Total Protein (6.3-8.2) g/dL Albumin (3.5-5.0) g/dL Assessment and Plan Plan: -STEMI status post cardiac cath and stent placement in the RCA Acute hypoxic respiratory failure secondary to congestive heart failure acute systolic dysfunction with the acute exacerbation, patient is presently intubated patient was intubated on 09/24/2019 -Asystole, cardio pulmonary arrest and asystole for 7 minutes on 08/24/2019 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 fib, Acute kidney injury prerenal azotemia secondary to heart failure exacerbation -Hypervolemic hyponatremia secondary to heart failure Hypotension Fall, with no dizziness or syncope -Patient is on levofloxacin because of possibly of pneumonia Hypertension Hyperlipidemia History of prostate cancer status post radiotherapy
[2019-09-26 18:58] LABS: Glucose,Whole Blood 204 mg/dL (75-99)
[2019-09-26] MEDS: MORPHINE SULFATE 2 MG/ML SYRINGE IVP PRN (21:57)
[2019-09-26] MEDS: HEPARIN SOD,PORK IN 0.45% NACL 25,000 UNIT in 0.45% NACL 1 250ML.BAG IV SCH (22:01)
[2019-09-26 23:44] LABS: Glucose,Whole Blood 171 mg/dL (75-99)
[2019-09-27] MEDS: PROPOFOL 1,000 MG in EMPTY BAG 1 BAG IV SCH ×5 (01:35→23:50)
[2019-09-27] MEDS: IPRATROPIUM-ALBUTEROL 3 ML NEB INHALATION SCH ×6 (03:20→23:30)
[2019-09-27 04:34] LABS: HCT 33.4 % (39.0-53.0); HGB 11.1 gm/dL (13.0-17.5); MCH 33.8 pg (25.0-35.0); MCHC 33.3 g/dL (31.0-37.0); MCV 101.5 fL (80.0-100.0); Macrocytosis Slight; Mean Platelet Volume 7.5; Platelet Count 265 k/uL (150-450); RBC 3.29 m/uL (4.30-5.90); RDW 13.7 % (11.5-15.5)
[2019-09-27 04:39] LABS: Albumin 2.9 g/dL (3.5-5.0); Calcium 7.7 mg/dL (8.4-10.2); Potassium 3.9 mmol/L (3.5-5.1); Total Bilirubin 0.9 mg/dL (0.2-1.3); Total Protein 5.8 g/dL (6.3-8.2)
[2019-09-27 04:47] LABS: ABG Base Excess 0.2 mmol/L; ABG HCO3 25 mmol/L (21-25); ABG Oxygen Saturation 96.5 % (94-97); ABG PCO2 41 mmHg (35-45); ABG PO2 90 mmHg (83-108); ABG TCO2 26 mmol/L (19-24); Allen Test Performed? Yes
[2019-09-27 05:45] LABS: Anisocytosis (M) Present; Band Neutrophils % 6 %; Eosinophils # (M) 0.41 k/uL (0-0.7); Lymphocytes # (M) 2.87 k/uL (1.0-4.8); Metamyelocytes # (M) 0.41 k/uL (0); Metamyelocytes % 2 %; Monocytes # (M) 1.03 k/uL (0-1.0); Neutrophils % (M) 73 %; Nucleated Red Blood Cells 5 /100 WBC (0-0); Polychromasia Present; Total Cells Counted 200; WBC 20.5 k/uL (3.8-10.6)
[2019-09-27 05:47] LABS: Glucose,Whole Blood 174 mg/dL (75-99)
[2019-09-27 05:49] LABS: Large Platelets Present
[2019-09-27] MEDS: INSULIN ASPART (NovoLOG) 100 UNIT/ML VIAL SQ SCH ×4 (05:49→23:53)
[2019-09-27 06:15] VITALS: BMI 28.0
--- NOTE | 2019-09-27 07:27 | XR ---
EXAMINATION TYPE: XR chest 1V portable DATE OF EXAM: 09/27/2019 COMPARISON: 09/26/2019 HISTORY: SOB, Follow Up FINDINGS: Indwelling tubes and catheters are unchanged. Continued cardiomegaly with pulmonary venous congestion and airspace infiltrates as well as small eff usions. There is however slight interval improvement noted. Pleural effusion unchanged. IMPRESSION: 1. Persistent features of congestive failure with slight interval improvement suggested.
--- NOTE | 2019-09-27 09:37 | PN ---
PROGRESS NOTE PULMONARY/CRITICAL CARE PROGRESS NOTE: DATE OF SERVICE: 09/27/2019 Critical care time 33 minutes. This is a 79-year-old male admitted back on September 19, [address]-segment elevation myocardial infarction. He had a stent placed in his right coronary artery. He was also admitted with a diagnosis of MS, CHF, hypoxemia, and atrial fibrillation. Three days ago, he had an episode of asystole and cardiopulmonary arrest and was intubated for this episode on September 24, 2019. He apparently had a relatively short period of cardiopulmonary arrest with 7 minutes of cardiopulmonary resuscitation. He was intubated and mechanically ventilated for this episode. He remains on mechanical ventilator. Currently, his vent settings are the volume assist-control mode rate of 12, tidal volume 450, FiO2 of 50%, PEEP of 5, blood gases show pO2 of 90, pCO2 of 41 and a pH 7.39. The patient remains on multiple drips including dobutamine at 5 mcg/kg per minute, propofol at 40 mcg/kg per minute, heparin via weight-based protocol. norepinephrine at 20 mcg/minutes, saline at 20 mL an hour and Vital high-protein at 53 with a goal of 53 mL an hour. His microbiologic studies are thus far negative. He is going to have a transesophageal echocardiogram today. Current vital signs are reviewed, temperature is 98, heart rate is 100, respiratory rate 16, blood pressure 91/57, saturations are 96%. Currently is sedated. Appears in no acute distress. He has an orally placed endotracheal tube and NG tube. HEENT: Examination is grossly unremarkable. NECK: Supple, full range of motion. No adenopathy. There is a left subclavian triple- lumen catheter. CARDIOVASCULAR: Examination reveals regular rhythm and rate. Heart rate about 100 beats per minute. S1, S2 normal. There is a harsh-sounding systolic murmur. It could be from aortic stenosis or mitral valve disease or VSD. LUNGS: Reveal coarse bilateral rhonchi. Breath sounds are diminished. Breath sounds equal bilaterally. ABDOMEN: Soft, bowel sounds are noted. EXTREMITIES: Intact. No cyanosis, clubbing, or significant edema. SKIN: Without rash. NEUROLOGIC: Examination is difficult to assess because the patient is currently sedated on propofol. LABS: Reviewed. White count 20.5, hemoglobin 11.1, hematocrit 33.4, platelet count 265,000, PTT 64.2, blood gases include a pO2 of 90, pCO2 of 41, pH of 7.39. Sodium 135, potassium 3.9m, chloride 104, CO2 is 27, anion gap 4, BUN and creatinine were 67 and 1.57. AST 629, ALT is 688. Albumin 2.9. Microbiologic studies are thus far negative. Chest x-ray shows diffuse bilateral infiltrates with bilateral pleural effusions. Current medications are reviewed. They were fully reviewed yesterday. Everything is appropriate. ASSESSMENT: 1. Status post cardiopulmonary arrest with asystole and 7 minutes of cardiopulmonary resuscitation with eventual return of spontaneous circulation, of unclear etiology. 2. Hypoxemic respiratory failure requiring intubation and mechanical ventilation on September 24, 2019, with ongoing need for mechanical ventilation. 3. Acute inferior wall ST-segment elevation myocardial infarction, status post stenting of the right coronary artery. 4. Acute pulmonary edema secondary to acute systolic congestive heart failure and ischemic cardiomyopathy. 5. Benign essential hypertension. 6. Hyperlipidemia. 7. History of mild dementia. 8. Atrial fibrillation with RVR. 9. History of coronary artery disease. 10.History of acute kidney injury. 11.Possible right lower lobe pneumonia, although microbiology has been negative. 12.Loud systolic murmur, of unclear etiology. 13.Congestive hepatopathy. PLAN: The patient will have a transesophageal echocardiogram today. He remains on dobutamine, propofol and heparin. We ill do a daily interruption of sedation. He also remains on norepinephrine 20 mcg/minute. Microbiology has been negative. Medications are reviewed. Prognosis is guarded. Critical care time 33 minutes. MMODL / IJN: [id number] /
[2019-09-27] MEDS: PANTOPRAZOLE 40 MG/10 ML VIAL IVP SCH (10:57)
[2019-09-27] MEDS: CLOPIDOGREL 75 MG TAB PO SCH (10:58)
[2019-09-27] MEDS: CHLORHEXIDINE GLUCONATE 15 ML CUP MUCOUS MEM SCH ×2 (10:58→20:26)
--- NOTE | 2019-09-27 11:13 | PN ---
PROGRESS NOTE Patient is seen for followup for acute kidney injury, mostly ATN associated with contrast nephropathy and hypotension and hypoperfusion. Renal function has been improving. Currently patient is not on any IV fluids or IV Lasix. He is status post cardiac arrest and has a temporary pacemaker. Patient remains on the vent. He was following commands yesterday when sedation was held. There are plans for a bedside KIM to rule out any vegetation. PHYSICAL EXAMINATION: On examination today, blood pressure was 109/67, heart rate 99 per minute. Levophed is down to 0.25 mcg/kg. Patient is afebrile. FiO2 is at 50%. Examination of the heart S1, S2. Examination of the lungs, bilateral breath sounds are heard. Abdomen is soft, nontender. Examination of the lower extremities shows no evidence of edema. YOU[employer] SERVICES SPECIALIST exam cannot be performed, patient is sedated. LABS: Show sodium 135, potassium 3.9, chloride 104, BUN 67, serum creatinine 1.57, alkaline phosphatase 125, AST 629, ALT is 688. ASSESSMENT: 1. Acute kidney injury, secondary to contrast nephropathy and ischemic ATN, currently improved. Patient has good urine output. Continue to maintain off of IV fluids and off of diuretics. 2. Hyponatremia which is hypervolemic, currently resolved. 3. Status post cardiac arrest. 4. Status post acute AR, status post cardiac catheterization and RCA stent placement. 5. Ventilator-dependent respiratory failure, post cardiac arrest. 6. Cardiomyopathy, ejection fraction at about 45%. 7. Hypokalemia, status post replacement. PLAN: Continue to monitor renal function. Avoid nephrotoxic agents. Repeat labs in a.m. MMODL / IJN: [id number] /
--- NOTE | 2019-09-27 11:18 | P.GSCN ---
History of Present Illness Consult date: 09/27/19 Reason for Consult: Ruptured posterior wall of the left ventricle with pseudoaneurysm Requesting physician: Javier Cisneros History of present illness: This is a 79-year-old gentleman who follows on an outpatient basis with Dr. James. He has a previous medical history of coronary artery disease, hypertension, hyperlipidemia, prostate cancer with radiation, dementia, and previous tobacco dependence. This gentleman presented to the emergency room at [facility] on 09/19/2019 with complaints of left-sided chest pain at rest, associated with nausea and diaphoresis. Patient was found to have ST elevation in the inferior leads. Troponin was elevated at 70.3 and patient was diagnosed with acute inferior wall myocardial infarction. He was taken to the cardiac catheterization lab where a stent was placed to the mid RCA. Subsequently a transthoracic echocardiogram was completed demonstrating mildly impaired left ventricular systolic function with EF 45-50%, hypokinesis of the left ventricle, trace mitral regurgitation, mild tricuspid regurgitation with mild pulmonary hypertension. Chest x-ray was completed on admission demonstrating interstitial alveolar edema, follow-up chest x-rays demonstrated increasing interstitial edema and the patient's oxygen requirements continued to rise. He was seen by the intensivists in the ICU, was felt to have pulmonary edema secondary to acute systolic heart failure, as well as possible right lower lobe pneumonia and was started on IV antibiotics as well as diuretics. On 09/24/2019 the patient went bradycardic and then had a cardiac arrest. A temp orary transvenous pacemaker was implanted. He was intubated. He continued to have a systolic murmur and repeat echocardiograms were completed without demonstration of significant valvular pathology to account for the murmur. This morning he had a transesophageal echocardiogram completed by Dr. Cisneros which Dr. Cisneros felt showed a ruptured posterior lateral wall with pseudoaneurysm present. Due to this finding Dr. Galvan from cardiothoracic surgery was consulted for recommendations. Of note, history was obtained from the chart and Dr. Cisneros as the patient is currently intubated with no family present. Review of Systems ROS unobtainable: due to endotracheal tube Past Medical History Past Medical History: Unable to Obtain, Coronary Artery Disease (CAD), Dementia, Myocardial Infarction (CT) Additional Past Medical History / Comment(s): Prostate cancer with radiation treatments, benign colon polyps, bilateral hearing aides. History of Any Multi-Drug Resistant Organisms: None Reported Past Surgical History: Unable to Obtain, Heart Catheterization With Stent Additional Past Surgical History / Comment(s): Cystoscopy, colonoscopy with benign polypectomy, EGD as a child for foreign object, R elbow fracture with surgery, L hand injury with surgery. Past Anesthesia/Blood Transfusion Reactions: No Reported Reaction Date of Last Stent Placement:: 09/19/19 Past Psychological History: No Psychological Hx Reported Smoking Status: Never smoker Past Alcohol Use History: Daily Past Drug Use History: None Reported - Past Family History Father Additional Family Medical History / Comment(s): Father was an alcoholic. Mother Additional Family Medical History / Comment(s): Mother was an alcoholic Medications and Allergies Home Medications Medication Instructions Recorded Confirmed Type Atorvastatin Calcium [Lipitor] 20 mg PO HS 09/19/19 09/19/19 History Beet Root 1000mg 2,000 mg PO DAILY 09/19/19 09/19/19 History Cholecalciferol [Vitamin D3 (25 5,000 unit PO DAILY 09/19/19 09/19/19 History Mcg = 1000 Iu)] Citalopram Hydrobromide [CeleXA] 20 mg PO DAILY 09/19/19 09/19/19 History Donepezil [Aricept] 10 mg PO DAILY 09/19/19 09/19/19 History Magnesium Oxide [Mag-Ox] 800 mg PO DAILY 09/19/19 09/19/19 History Memantine HCl [Memantine HCl ER] 28 mg PO DAILY 09/19/19 09/19/19 History Tamsulosin HCl [Flomax] 0.4 mg PO DAILY 09/19/19 09/19/19 History Vitamin B Complex 1 tab PO DAILY 09/19/19 09/19/19 History amLODIPine [Norvasc] 5 mg PO DAILY 09/19/19 09/19/19 History traZODone HCL 150 mg PO HS 09/19/19 09/19/19 History Allergies Allergy/AdvReac Type Severity Reaction Status Date / Time Penicillins Allergy Rash/Hives Verified 09/19/19 11:16 Surgical - Exam Vital Signs Temp Pulse Resp BP Pulse Ox 98.4 F 71 18 108/77 94 L 09/19/19 07:57 09/19/19 07:57 09/19/19 07:57 09/19/19 07:57 09/19/19 07:57 - General Currently intubated and sedated well developed, well nourished, no distress - Respiratory Lungs sounds diminished bilaterally. Respirations even, nonlabored on mechanical ventilation. Current ventilator settings assist control mode, tidal volume 450, FiO2 50%, respiratory rate 12, PEEP 5. ABGs this morning on those settings 7.4/41/90/25. 8.0 ET tube present, 23 at the lip. - Cardiovascular S1, S2 present, loud systolic murmur present. Regular rate and rhythm, sinus rhythm on telemetry. Palpable peripheral pulses bilaterally. No edema present. No calf pain or tenderness noted. Left subclavian triple-lumen central line, left foot a line, right femoral transvenous pacemaker present, pacemaker connected to generator with VVI mode and backup rate 50 bpm. Currently on IV dobutamine and Levophed. - Abdomen Abdomen: soft, non tender, bowel sounds - Genitourinary Escobar present draining clear, yellow urine. Outputs 40-60 mL per hour - Rectum Deferred - Integumentary no rash, no growths - Neurologic Currently sedated with propofol, off sedation patient follows commands and moves all extremities per nursing Results - Labs 09/27/19 04:15 09/27/19 04:15 Abnormal Lab Results - Last 24 Hours (Table) 09/26/19 09/26/19 09/26/19 Range/Units 10:26 12:05 14:51 WBC (3.8-10.6) k/uL RBC (4.30-5.90) m/uL Hgb (13.0-17.5) gm/dL Hct (39.0-53.0) % MCV (80.0-100.0) fL Neutrophils # (Manual) (1.3-7.7) k/uL Monocytes # (Manual) (0-1.0) k/uL Metamyelocytes # (Man) (0) k/uL Nucleated RBCs (0-0) /100 WBC APTT 82.2 H (22.0-30.0) sec ABG Total CO2 (19-24) mmol/L Sodium (137-145) mmol/L BUN (9-20) mg/dL Creatinine (0.66-1.25) mg/dL Glucose (74-99) mg/dL POC Glucose (mg/dL) 197 H 233 H (75-99) mg/dL Calcium (8.4-10.2) mg/dL AST (17-59) U/L ALT (4-49) U/L Total Protein (6.3-8.2) g/dL Albumin (3.5-5.0) g/dL 09/26/19 09/26/19 09/26/19 Range/Units 18:55 19:00 23:42 WBC (3.8-10.6) k/uL RBC (4.30-5.90) m/uL Hgb (13.0-17.5) gm/dL Hct (39.0-53.0) % MCV (80.0-100.0) fL Neutrophils # (Manual) (1.3-7.7) k/uL Monocytes # (Manual) (0-1.0) k/uL Metamyelocytes # (Man) (0) k/uL Nucleated RBCs (0-0) /100 WBC APTT 64.6 H (22.0-30.0) sec ABG Total CO2 (19-24) mmol/L Sodium (137-145) mmol/L BUN (9-20) mg/dL Creatinine (0.66-1.25) mg/dL Glucose (74-99) mg/dL POC Glucose (mg/dL) 204 H 171 H (75-99) mg/dL Calcium (8.4-10.2) mg/dL AST (17-59) U/L ALT (4-49) U/L Total Protein (6.3-8.2) g/dL Albumin (3.5-5.0) g/dL 09/27/19 09/27/19 09/27/19 Range/Units 04:15 04:15 04:15 WBC 20.5 H (3.8-10.6) k/uL RBC 3.29 L (4.30-5.90) m/uL Hgb 11.1 L (13.0-17.5) gm/dL Hct 33.4 L (39.0-53.0) % MCV 101.5 H (80.0-100.0) fL Neutrophils # (Manual) 16.10 H (1.3-7.7) k/uL Monocytes # (Manual) 1.03 H (0-1.0) k/uL Metamyelocytes # (Man) 0.41 H (0) k/uL Nucleated RBCs 5 H (0-0) /100 WBC APTT 64.2 H (22.0-30.0) sec ABG Total CO2 (19-24) mmol/L Sodium 135 L (137-145) mmol/L BUN 67 H (9-20) mg/dL Creatinine 1.57 H (0.66-1.25) mg/dL Glucose 174 H (74-99) mg/dL POC Glucose (mg/dL) (75-99) mg/dL Calcium 7.7 L (8.4-10.2) mg/dL AST 629 H (17-59) U/L ALT 688 H (4-49) U/L Total Protein 5.8 L (6.3-8.2) g/dL Albumin 2.9 L (3.5-5.0) g/dL 09/27/19 09/27/19 Range/Units 04:42 05:45 WBC (3.8-10.6) k/uL RBC (4.30-5.90) m/uL Hgb (13.0-17.5) gm/dL Hct (39.0-53.0) % MCV (80.0-100.0) fL Neutrophils # (Manual) (1.3-7.7) k/uL Monocytes # (Manual) (0-1.0) k/uL Metamyelocytes # (Man) (0) k/uL Nucleated RBCs (0-0) /100 WBC APTT (22.0-30.0) sec ABG Total CO2 26 H (19-24) mmol/L Sodium (137-145) mmol/L BUN (9-20) mg/dL Creatinine (0.66-1.25) mg/dL Glucose (74-99) mg/dL POC Glucose (mg/dL) 174 H (75-99) mg/dL Calcium (8.4-10.2) mg/dL AST (17-59) U/L ALT (4-49) U/L Total Protein (6.3-8.2) g/dL Albumin (3.5-5.0) g/dL Diabetes panel 09/27/19 Range/Units 04:15 Sodium 135 L (137-145) mmol/L Potassium 3.9 (3.5-5.1) mmol/L Chloride 104 (98-107) mmol/L Carbon Dioxide 27 (22-30) mmol/L BUN 67 H (9-20) mg/dL Creatinine 1.57 H (0.66-1.25) mg/dL Glucose 174 H (74-99) mg/dL Calcium 7.7 L (8.4-10.2) mg/dL AST 629 H (17-59) U/L ALT 688 H (4-49) U/L Alkaline Phosphatase 125 (38-126) U/L Total Protein 5.8 L (6.3-8.2) g/dL Albumin 2.9 L (3.5-5.0) g/dL Calcium panel 09/27/19 Range/Units 04:15 Calcium 7.7 L (8.4-10.2) mg/dL Albumin 2.9 L (3.5-5.0) g/dL Pituitary panel 09/27/19 Range/Units 04:15 Sodium 135 L (137-145) mmol/L Potassium 3.9 (3.5-5.1) mmol/L Chloride 104 (98-107) mmol/L Carbon Dioxide 27 (22-30) mmol/L BUN 67 H (9-20) mg/dL Creatinine 1.57 H (0.66-1.25) mg/dL Glucose 174 H (74-99) mg/dL Calcium 7.7 L (8.4-10.2) mg/dL Adrenal panel 09/27/19 Range/Units 04:15 Sodium 135 L (137-145) mmol/L Potassium 3.9 (3.5-5.1) mmol/L Chloride 104 (98-107) mmol/L Carbon Dioxide 27 (22-30) mmol/L BUN 67 H (9-20) mg/dL Creatinine 1.57 H (0.66-1.25) mg/dL Glucose 174 H (74-99) mg/dL Calcium 7.7 L (8.4-10.2) mg/dL Total Bilirubin 0.9 (0.2-1.3) mg/dL AST 629 H (17-59) U/L ALT 688 H (4-49) U/L Alkaline Phosphatase 125 (38-126) U/L Total Protein 5.8 L (6.3-8.2) g/dL Albumin 2.9 L (3.5-5.0) g/dL - Imaging Chest x-ray: report reviewed, image reviewed Additional studies: Echocardiogram films revealed Assessment and Plan Assessment: 1. Acute inferior wall myocardial infarction, status post stent to the mid RCA 2. Ruptured posterior lateral wall with pseudoaneurysm on transesophageal echocardiogram from this morning 3. Acute systolic heart failure with akinesis of the LV 4. Status post cardiopulmonary arrest 5. Acute hypoxemic respiratory failure requiring intubation and mechanical ventilation 6. New-onset paroxysmal atrial fibrillation, currently in normal sinus rhythm 7. Acute kidney injury 8. Possible right lower lobe pneumonia 9. Elevated transaminases 10. History of hypertension, currently hypotensive on levo 11. History of hyperlipidemia 12. History of prostate cancer with radiation 13. Dementia 14. Previous tobacco dependence Plan: The patient was seen and examined at the bedside. A chart/diagnostics were reviewed. The patient was seen and examined by Dr. Galvan and his transesophageal echocardiogram film as well as transthoracic echocardiograms and heart catheterization films were reviewed. Our recommendation is for no surgical intervention at this time as the risk of surgery far exceeds the risk of conservative management. Dr. Galvan did attempt to call Dr. Cisneros to discuss this plan, our recommendations were discussed with the daughter at the bedside. Patient remains on IV dobutamine and heparin. Currently on Plavix due to recent stent. Mechanical ventilator per pulmonology, continue sedation. Management of other comorbidity conditions per primary care service. Thank you Dr. Cisneros for this consult. Time with Patient: Greater than 30
[2019-09-27 11:42] LABS: Glucose,Whole Blood 184 mg/dL (75-99)
[2019-09-27 13:58] LABS: Glucose,Whole Blood 176 mg/dL (75-99)
[2019-09-27] MEDS: HEPARIN SOD,PORK IN 0.45% NACL 25,000 UNIT in 0.45% NACL 1 250ML.BAG IV SCH (14:01)
--- NOTE | 2019-09-27 14:07 | P.PN ---
Subjective 79 years old male with past medical history of hypertension, hyperlipidemia, dementia, prostate cancer status post radiotherapy , patient presents because of chest pain found to have STEMI, he underwent cardiac cath status post stent placement in the right coronary artery. He is in the ICU. His creatinine increased today to 1.4, WBC is high at 18.6 and 19.6 K, sodium 131, his chest x-ray showing pulmonary congestion with possible interstitial pneumonia He saturating 90s on 7 L/m oxygen via nasal cannula. Bottle Inspector already given 1 dose of Lasix IV and continued on 40 mg by mouth daily, 1 going to give him another dose of Lasix. Blood pressure is on the low normal but he is tachypneic at 35. A but that side nurse his breathing is li ttle better in the evening than in the morning and he did not need BiPAP for now. He is also on aspirin and Plavix, he is on metoprolol 12.5 mg and lisinopril 2.5 mg, we going to hold lisinopril for now Also call pulmonary and nephrology consult 09/21/2019 Patient breathing easier but however his significantly tachypneic and mid 20s, he saturating 94% on 9 L oxygen via nasal cannula. His blood pressure 96/57 and heart rate 77. He still bleeding from dyspnea but no chest pain, he has little cough with clear phlegm. This morning he was trying to get out of bed to the restroom by himself when he fell on hit his head in the forehead area. Chest x-ray: Pulmonary edema, atypical pneumonia, some right lower lobe pneumonia WBC this morning is 18.1 K with slight improvement. Sodium 132, creatinine stable at 1.5. Procol stone and is elevated at 0.23 Patient is currently on by mouth Lasix, lisinopril is held, senior sales representative recommended to continue with metoprolol 12.5, we going to check with cardiology about holding parameters. Continue with Levaquin. Ordered EKG 09/22/19 Patient awake and alert, his breathing is easier although he still complains from some chest pain with little dyspnea and the 10 cough. He is saturating 94% on 3-5 L of oxygen via nasal cannula. Rest of Vitas looks stable, however her blood pressure is on the low side, this morning was 78/56- 94/59 WBC is 17.1 K, hemoglobin 12.2, sodium 128, creatinine went up to 2.3. Lactic acid is elevated at 3.8. ProBNP is 41 500 sputum culture is pending. Chest x-ray showing stable changes with diffuse parenchymal changes or diffuse pneumonia or CHF/pulmonary edema Cardiology started the patient on dobutamine drip, also he got 1 dose of Lasix 60 mg IV 1 and on sodium bicarbonate tablets. Patient also is on Levaquin 250 mg by mouth daily, which is renal dose. Pulmonary nephrology and cardiology teams on the case 09/23/2019 Patient is still complaining of shortness of breath patient has significant rhonchi streaking heart failure exacerbation patient is presently on dobutamine drip does have atrial fibrillation for which patient is on Cardizem, patient is still hyponatremic receiving sodium bicarbonate tablets is also on Lasix, patient is on metoprolol as well. Patient was started on IV heparin. We will d yspnea Cardizem as it decreases as it [facility] heart failure. Nephrology is following the patient patient probably has hypovolemic hyponatremia Patient went into asystole after which the patient had a temporary transvenous a speckled placement , patient was also intubated because of respiratory failure. Patient is presently on dopamine drip and also on norepinephrine drip. Patient is presently sinus rhythm. Patient still has pulmonary edema on the chest x-ray nephrology is managing diuretics patient serum sodium continues to be low at 124we creatinine continued to go up to subacute 2.September Patient remains on ventilator support with FiO2 of 50% deep of 5 respiratory set up respiratory rate of 12. Blood gases did not show any significant abnormality. Patient remains are not epinephrine 8 mcg/m dobutamine drip propofol drip heparin drip presently sinus rhythm, nutrition via NG tube 09/26/2019 No significant change in his overall clinical condition except for some improvement in his serum sodium of 133 white blood cell count continued to go up patient remains on ventilator support patient is on 2 pressors. Fairly good urine output liver enzymes are coming down patient had a sick sedation medication today hypokalemia potassium is being replaced 09/27/2019 Patient underwent transesophageal echocardiogram which was concerning for ruptured posterior wall. Because of his cardiothoracic surgery was consulted and evaluated the patient and any surgical intervention at this time is more harmful than benefit because of which no further intervention is being planned at this time although there is overall clinical improvement except for white blood cell count which continues to cough serum sodium improved, kidney function improved, liver enzymes improved, patient remains in a dual pressor support and ventilatory support able to ventilate well chest x-ray showing CHF review of systems: Unable to obtain as patient is intubated and sedated at this time All inpatient medications were reviewed and appropriate changes in these medications as dictated in the interval history and assessment and plan. Objective - Vital Signs Vital signs: Vital Signs Temp 98.3 F 09/27/19 12:00 Pulse 109 H 09/27/19 12:00 Resp 11 L 09/27/19 12:00 BP 97/64 09/27/19 12:00 Pulse Ox 97 09/27/19 12:00 Intake & Output 09/26/19 09/27/19 09/27/19 18:59 06:59 18:59 Intake Total 7017.905 6332.333 661.366 Output Total 975 675 325 Balance 196.659 9123.333 336.366 Weight 81.4 kg 83 kg Intake: IV 516 516 258 0.9 240 240 120 0.9NS Sheath 240 240 120 Arterial Line 36 36 18 Intake, IV Titration 337.279 547.333 227.366 Amount DOBUTamine DRIP 500 mg In 168.696 Dextrose/Water 1 250ml. bag @ 5 MCG/KG/MIN 11.88 mls/hr IV .Q21H3M RJ Rx# :[id number] Heparin Sod,Pork in 0.45% 63.143 41.507 NaCl 25,000 unit In 0.45 % NaCl 1 250ml.bag @ 12.5 UNITS/KG/HR 9.95 mls/hr IV .Q24H RJ Rx#: [id number] Norepinephrine 32 mg In 156.635 109.169 127.915 Sodium Chloride 0.9% 218 ml @ 0.65 MCG/KG/MIN 26. 843 mls/hr IV .Q9H19M RJ Rx#:[id number] Propofol 1,000 mg In 117.501 227.961 99.451 Empty Bag 1 bag @ Titrate IV .Q0M RJ Rx#: [id number] Oral 150 75 70 Tube Feeding 636 636 106 Output: Urine 975 675 325 Other: Voiding Method Indwelling Catheter Indwelling Catheter Indwelling Catheter ABP, PAP, CO, CI - Last Documented Arterial Blood Pressure 82/57 - Exam GENERAL:patient is intubated sedated HEENT: Pupils are round and equally reacting to light. EOMI. No scleral icterus. No conjunctival pallor. Normocephalic, atraumatic. No pharyngeal erythema. No thyromegaly. CARDIOVASCULAR: S1 and S2 present. No murmurs, rubs, or gallops. Does have elevated JVD -PULMONARY: Diffuse bilateral crackles ABDOMEN: Soft, nontender, nondistended, normoactive bowel sounds. No palpable organomegaly. MUSCULOSKELETAL: No joint swelling or deformity. EXTREMITIES: No cyanosis, clubbing, or pedal edema. NEUROLOGICAL: unable to assess. SKIN: No rashes. no petechiae. - Labs CBC & Chem 7: 09/27/19 04:15 09/27/19 04:15 Labs: Abnormal Lab Results - Last 24 Hours (Table) 09/26/19 09/26/19 09/26/19 Range/Units 14:51 18:55 19:00 WBC (3.8-10.6) k/uL RBC (4.30-5.90) m/uL Hgb (13.0-17.5) gm/dL Hct (39.0-53.0) % MCV (80.0-100.0) fL Neutrophils # (Manual) (1.3-7.7) k/uL Monocytes # (Manual) (0-1.0) k/uL Metamyelocytes # (Man) (0) k/uL Nucleated RBCs (0-0) /100 WBC APTT 64.6 H (22.0-30.0) sec ABG Total CO2 (19-24) mmol/L Sodium (137-145) mmol/L BUN (9-20) mg/dL Creatinine (0.66-1.25) mg/dL Glucose (74-99) mg/dL POC Glucose (mg/dL) 233 H 204 H (75-99) mg/dL Calcium (8.4-10.2) mg/dL AST (17-59) U/L ALT (4-49) U/L Total Protein (6.3-8.2) g/dL Albumin (3.5-5.0) g/dL 09/26/19 09/27/19 09/27/19 Range/Units 23:42 04:15 04:15 WBC 20.5 H (3.8-10.6) k/uL RBC 3.29 L (4.30-5.90) m/uL Hgb 11.1 L (13.0-17.5) gm/dL Hct 33.4 L (39.0-53.0) % MCV 101.5 H (80.0-100.0) fL Neutrophils # (Manual) 16.10 H (1.3-7.7) k/uL Monocytes # (Manual) 1.03 H (0-1.0) k/uL Metamyelocytes # (Man) 0.41 H (0) k/uL Nucleated RBCs 5 H (0-0) /100 WBC APTT 64.2 H (22.0-30.0) sec ABG Total CO2 (19-24) mmol/L Sodium (137-145) mmol/L BUN (9-20) mg/dL Creatinine (0.66-1.25) mg/dL Glucose (74-99) mg/dL POC Glucose (mg/dL) 171 H (75-99) mg/dL Calcium (8.4-10.2) mg/dL AST (17-59) U/L ALT (4-49) U/L Total Protein (6.3-8.2) g/dL Albumin (3.5-5.0) g/dL 09/27/19 09/27/19 09/27/19 Range/Units 04:15 04:42 05:45 WBC (3.8-10.6) k/uL RBC (4.30-5.90) m/uL Hgb (13.0-17.5) gm/dL Hct (39.0-53.0) % MCV (80.0-100.0) fL Neutrophils # (Manual) (1.3-7.7) k/uL Monocytes # (Manual) (0-1.0) k/uL Metamyelocytes # (Man) (0) k/uL Nucleated RBCs (0-0) /100 WBC APTT (22.0-30.0) sec ABG Total CO2 26 H (19-24) mmol/L Sodium 135 L (137-145) mmol/L BUN 67 H (9-20) mg/dL Creatinine 1.57 H (0.66-1.25) mg/dL Glucose 174 H (74-99) mg/dL POC Glucose (mg/dL) 174 H (75-99) mg/dL Calcium 7.7 L (8.4-10.2) mg/dL AST 629 H (17-59) U/L ALT 688 H (4-49) U/L Total Protein 5.8 L (6.3-8.2) g/dL Albumin 2.9 L (3.5-5.0) g/dL 09/27/19 09/27/19 Range/Units 11:41 13:55 WBC (3.8-10.6) k/uL RBC (4.30-5.90) m/uL Hgb (13.0-17.5) gm/dL Hct (39.0-53.0) % MCV (80.0-100.0) fL Neutrophils # (Manual) (1.3-7.7) k/uL Monocytes # (Manual) (0-1.0) k/uL Metamyelocytes # (Man) (0) k/uL Nucleated RBCs (0-0) /100 WBC APTT (22.0-30.0) sec ABG Total CO2 (19-24) mmol/L Sodium (137-145) mmol/L BUN (9-20) mg/dL Creatinine (0.66-1.25) mg/dL Glucose (74-99) mg/dL POC Glucose (mg/dL) 184 H 176 H (75-99) mg/dL Calcium (8.4-10.2) mg/dL AST (17-59) U/L ALT (4-49) U/L Total Protein (6.3-8.2) g/dL Albumin (3.5-5.0) g/dL Assessment and Plan Plan: -STEMI status post cardiac cath and stent placement in the RCA. 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 fib, Acute kidney injury prerenal azotemia secondary to heart failure exacerbation -Hypervolemic hyponatremia secondary to heart failure Hypotension Fall, with no dizziness or syncope -Patient is on levofloxacin because of possibly of pneumonia Hypertension Hyperlipidemia History of prostate cancer status post radiotherapy
--- NOTE | 2019-09-27 15:20 | P.TEE ---
Indications for Procedure(s): Heart normal. Rule out valvular heart disease. Rule out VSD Date of Procedure: 09/27/19 Preoperative Diagnosis: Heart murmur. Rule out VSD. Rule out valvular heart disease Postoperative Diagnosis: Possible rupture of the posterior wall with possible pseudoaneurysm. Rule out VSD Description of Procedure(s): INDICATION: Heart murmur. Rule out valvular heart disease. Rule out VSD or pseudoaneurysm CONSENT: Verbal consent is obtained from the family PROCEDURE: . Patient is already intubated and sedated. A lubricated Omni probe was introduced in the oropharynx and was advanced into the esophagus and stomach. Multiple views were obtained. Color, pulsed and continuous with Doppler studies were performed. Patient tolerated the procedure well. FINDINGS: The aortic valve is tricuspid and function normally with trace regurgitation. Mitral valve is functioning normally with mild regurgitation. Left ankle function is fair with hypokinesia to akinesia of the posterior basal segment. The interatrial septum did not show any shunt. Left atrial appendage is free of any clot. There appeared to be a flow starting near the posterior lateral wall suggestive of possible rupture with pseudo-aneurysm. The possi bility of VSD cannot be completely excluded. The left ankle size appeared to be normal. Atrial sizes appear to be normal IMPRESSION: . #1. Possible rupture of the ventricle in the posterolateral area with pseudoaneurysm #2. Rule out possibility of VSD #3. Severe hypokinesia to akinesia of the posterior basal segment #4. Normal aortic valve function. #5. Mild mitral regurgitation #6. Mild to moderately impaired LV function PLAN: Right heart catheterization to rule out any stepup in oxygen saturation. Patient is felt to be high risk candidate for surgery. Continue current medical therapy
[2019-09-27] MEDS ORDERED: LIDOCAINE 1% INJ 10MG/ML (20 ML MDV) SQ ONE (15:34)
[2019-09-27] MEDS ORDERED: RX INFO: IV CONTRAST WAS GIVEN 1 EACH MISC MISCELLANE PRN (15:57)
[2019-09-27 16:00] LABS: O2 Sat Blood Gas 45.7 %
[2019-09-27 16:02] LABS: O2 Sat Blood Gas 45.2 %
--- NOTE | 2019-09-27 16:02 | P.PCN ---
Date of Procedure: 09/27/19 Preoperative Diagnosis: Rule out Cardec shunt Postoperative Diagnosis: The same Procedure(s) Performed: Right heart catheterization using Pear[place]-Maxim catheter Description of Procedure: Right heart catheterization: The patient was brought to the lab in a fasting state. Patient had existing state in the right femoral vein. This was exchanged to a 8-Filipino sheath. Existing temporary pacemaker was was removed. A balloon-tip Pear[place]-Maxim catheter was advanced under fluoroscopy into the right atrium, right ventricle and pulmonary artery. Hemodynamics in the blood gas were obtained. Patient tolerated the procedure well. The Pearlington-Maxim catheter was subsequently removed. Temporary pacemaker wire [new] was advanced under fluoroscopy and was placed in the right ventricle apical region. Satisfactory position was obtained. Thresholds were excellent.. The pacemaker is set at a rate of 50 or and output of 3. Findings: Right atrial pressure was 16. Right ventricular pressure was 45/16. Pulmonary artery pressure was 45/20. Pulmonary wedge pressure was 20. Cardiac output is 6.8 L. Blood gas are pending at this time Final impression #1. Right heart catheterization #2. Removal of old pacemaker wire #3. Insertion of the new pacemaker wire. Plan: Patient will be transferred to intensive care unit. Continue current management.
[2019-09-27 16:04] LABS: O2 Sat Blood Gas 79.9 %
[2019-09-27 16:06] LABS: O2 Sat Blood Gas 75.7 %
[2019-09-27 16:26] LABS: Allen Test Performed? Yes
[2019-09-27 16:29] LABS: ABG Base Excess -0.3 mmol/L; ABG HCO3 23 mmol/L (21-25); ABG Oxygen Saturation 96.2 % (94-97); ABG PCO2 35 mmHg (35-45); ABG PH 7.44 (7.35-7.45); ABG PO2 85 mmHg (83-108)
[2019-09-27] MEDS: NOREPINEPHRINE 32 MG in SODIUM CHLORIDE 0.9% 218 ML IV SCH (17:18)
[2019-09-27 17:56] LABS: Glucose,Whole Blood 170 mg/dL (75-99)
[2019-09-27 18:42] LABS: Glucose,Whole Blood 182 mg/dL (75-99)
[2019-09-27] MEDS: ATORVASTATIN 80 MG TAB PO SCH (20:26)
[2019-09-27 23:34] LABS: Glucose,Whole Blood 164 mg/dL (75-99)
[2019-09-28] MEDS: IPRATROPIUM-ALBUTEROL 3 ML NEB INHALATION SCH ×5 (03:55→20:05)
[2019-09-28] MEDS: NOREPINEPHRINE 32 MG in SODIUM CHLORIDE 0.9% 218 ML IV SCH ×3 (04:31→12:33)
[2019-09-28] MEDS ORDERED: DILTIAZEM DRIP BOLUS FROM BAG 1 MG SOLN IV ONE (04:54)
[2019-09-28 05:00] LABS: ABG HCO3 24 mmol/L (21-25); ABG Oxygen Saturation 92.3 % (94-97); ABG PCO2 44 mmHg (35-45); ABG PH 7.34 (7.35-7.45); ABG PO2 72 mmHg (83-108); ABG TCO2 25 mmol/L (19-24); Allen Test Performed? Yes
[2019-09-28] MEDS ORDERED: DILTIAZEM 125 MG in SODIUM CHLORIDE 0.9% 100 ML IV SCH (05:00)
[2019-09-28 05:32] LABS: HCT 36.1 % (39.0-53.0); HGB 11.5 gm/dL (13.0-17.5); Hypochromasia Slight; MCH 33.3 pg (25.0-35.0); MCHC 31.7 g/dL (31.0-37.0); Macrocytosis Moderate; Mean Platelet Volume 9.1; Platelet Count 229 k/uL (150-450); RBC 3.44 m/uL (4.30-5.90); RDW 13.9 % (11.5-15.5)
[2019-09-28] MEDS: PROPOFOL 1,000 MG in EMPTY BAG 1 BAG IV SCH ×3 (05:32→17:56)
[2019-09-28 05:47] LABS: Albumin 2.8 g/dL (3.5-5.0); Calcium 7.8 mg/dL (8.4-10.2); Potassium 5.2 mmol/L (3.5-5.1); Total Bilirubin 0.9 mg/dL (0.2-1.3); Total Protein 5.2 g/dL (6.3-8.2)
[2019-09-28 05:51] LABS: Glucose,Whole Blood 205 mg/dL (75-99)
[2019-09-28] MEDS: INSULIN ASPART (NovoLOG) 100 UNIT/ML VIAL SQ SCH ×2 (06:31→12:31)
[2019-09-28 06:37] LABS: Metamyelocytes % 1 %; Myelocytes % 2 %; Neutrophils % (M) 76 %; Nucleated Red Blood Cells 10 /100 WBC (0-0); Total Cells Counted 200
[2019-09-28 06:38] LABS: Anisocytosis (M) Present; Lymphocytes # (M) 2.03 k/uL (1.0-4.8); Monocytes # (M) 2.44 k/uL (0-1.0); Myelocytes # (M) 0.41 k/uL (0); Neutrophils # (M) 15.43 k/uL (1.3-7.7); WBC 20.3 k/uL (3.8-10.6)
--- NOTE | 2019-09-28 07:27 | XR ---
EXAMINATION TYPE: XR chest 1V portable DATE OF EXAM: 09/28/2019 COMPARISON: 09/27/2019 HISTORY: SOB, Follow Up FINDINGS: Indwelling tubes and catheters are unchanged. No change in diffuse bilateral infiltrates Stable appearance of the cardio-mediastinal structures at this time. Pleural effusion unchanged. IMPRESSION: 1. Stable portable chest. Clinical correlation and follow up until resolution is recommended.
[2019-09-28] MEDS: PANTOPRAZOLE 40 MG/10 ML VIAL IVP SCH (09:19)
[2019-09-28] MEDS: CLOPIDOGREL 75 MG TAB PO SCH (09:19)
[2019-09-28] MEDS: CHLORHEXIDINE GLUCONATE 15 ML CUP MUCOUS MEM SCH (09:19)
[2019-09-28] MEDS ORDERED: ARTIFICIAL TEARS-HYPROMELLOSE DROPS 15 ML BTL BOTH EYES PRN (09:32)
[2019-09-28] MEDS ORDERED: CISATRACURIUM 2 MG/ML 5 ML VIAL IV ONE (09:32)
[2019-09-28] MEDS ORDERED: CISATRACURIUM 200 MG in SODIUM CHLORIDE 0.9% 180 ML IV SCH (09:45)
[2019-09-28] MEDS ORDERED: SODIUM CHLORIDE 0.9% 150 ML with VASOPRESSIN 60 UNIT IV SCH ×2 (09:45)
--- NOTE | 2019-09-28 11:59 | PN ---
PROGRESS NOTE DATE OF SERVICE: 09/28/2019 HISTORY OF PRESENT ILLNESS: This is a 79-year-old male admitted back on September 18. The patient came in for ST-segment elevation myocardial infarction. The patient had a right coronary artery stent placed. He also came in with a diagnosis of acute SC, CHF, hypoxemia, and atrial fibrillation. He had an episode of cardiopulmonary arrest about 4 days ago. This occurred on September 23. He apparently required intubation and mechanical ventilation for a brief episode of asystole. He did have cardiopulmonary resuscitation for about 7 minutes before there was return of spontaneous circulation. Currently, he remains on the ventilator. He is on the volume assist-control mode rate of 12, tidal volume 450, FiO2 of 50%, PEEP of 5. Blood gases show a pO2 of 72, pCO2 44, and pH 7.34. The patient is currently on saline at 10 mL an hour, propofol at 30 mcg/kg/ minute, Cardizem drip at 2.5 mg/hour, dobutamine at 5 mcg/kg/minute, norepinephrine at 51 mcg/min, heparin via weight based protocol and Vital high-protein at 53 with goal of 53 cc an hours. He had a transesophageal echocardiogram done yesterday. It showed a ruptured posterior lateral wall of the left ventricle with a pseudoaneurysm. Today, we are going to give him Nimbex, and start drip at 2 mcg/kg/minute and use some vasopressin at 0.03 units/minute for additional blood pressure support. I told the nurses to increase the Levophed up to 70 mcg/minute for blood pressure support but no higher than that. We will talk to the family about code status. We have not had the opportunity to do that as yet. PHYSICAL EXAMINATION: VITAL SIGNS: Current vital signs are reviewed. His temperature is 98.4, heart rate 112, respiratory rate is 16 before paralyzation, 12 after paralyzation. Blood pressure 111/77, mean 88, and saturations are 92%. GENERAL: Appears in no acute distress. Currently sedated. HEENT: Examination is grossly unremarkable. There is an orally placed endotracheal tube and NG tube. NECK: Supple with full range of motion. Neck veins are flat. CARDIOVASCULAR: Examination reveals tachycardia. The patient is in atrial fibrillation. Heart rate about 120. There is a harsh systolic sound possibly from an underlying VSD. LUNGS: Reveal coarse rhonchi. Some expiratory wheezes. Some crackles as well. ABDOMEN: Soft. Bowel sounds are noted. EXTREMITIES: Intact. No edema. SKIN: Without rash. NEUROLOGIC: Examination could not be properly evaluated. LABS: Reviewed. White count 20.3, hemoglobin 11.5, hematocrit 36.1, platelet count 229,000, PTT is 40. Blood gases have been noted. PO2 72, pCO2 44, pH 7.34. Sodium 137, potassium 5.2, chloride 106, CO2 24, anion gap is 7. BUN and creatinine were 76 and 1.56. AST 1495, ALT 1041, albumin 2.8. Microbiology is negative. X-RAY: Chest x-ray from September 27 shows diffuse bilateral infiltrates. Chest x-ray is stable from yesterday's x-ray. MEDICATIONS: Medications are reviewed. ASSESSMENT: 1. Status post cardiopulmonary arrest with asystole with cardiopulmonary resuscitation, with eventual return of spontaneous circulation, of unclear etiology. 2. Hypoxemic respiratory failure requiring intubation and mechanical ventilation on September 24, 2019, with failure to wean from mechanical ventilation. 3. Acute inferior wall ST-segment elevation myocardial infarction, status post stenting of the right coronary artery. 4. Acute pulmonary edema secondary to acute systolic congestive heart failure and ischemic cardiomyopathy. 5. Transesophageal echocardiogram evidence on September 26 of a ruptured LV and pseudoaneurysm, and possible ventricular septal defect. 6. Benign essential hypertension. 7. Hyperlipidemia. 8. History of mild dementia. 9. Atrial fibrillation with rapid ventricular response. 10.History of coronary artery disease. 11.History of acute kidney injury. 12.Possible right lower lobe pneumonia. 13.Congestive hepatopathy. PLAN: Overall, the patient's condition has worsened. He is requiring higher doses of vasopressor. He will be started on vasopressin in addition to norepinephrine which should not exceed 70 mcg/minute. We will give him Nimbex for paralysis and better synchrony up with the ventilator. I will call his family and let them know what is going on. Currently his gases are reasonable. The transesophageal echocardiogram results from yesterday were noted. He remains on Diprivan, Cardizem, dobutamine, norepinephrine and heparin via weight based protocol. Prognosis is guarded. Critical care time 33 minutes. MMODL / IJN: [id number] /
[2019-09-28 12:11] LABS: Glucose,Whole Blood 175 mg/dL (75-99)
[2019-09-28] MEDS: HEPARIN SOD,PORK IN 0.45% NACL 25,000 UNIT in 0.45% NACL 1 250ML.BAG IV SCH (12:31)
[2019-09-28] MEDS: DOBUTamine DRIP 500 MG in DEXTROSE/WATER 1 250ML.BAG IV SCH (12:33)
--- NOTE | 2019-09-28 13:03 | P.PN ---
Subjective Patient seen in follow-up for acute kidney injury. Renal function is stable. He remains on 60 mics of Levophed as well as vasopressin. He is also on Cardizem drip. Dobutamine has been discontinued. Urine output the last 2 hours was about 15 mL per hour. He is receiving tube feeding. Currently on 50% FiO2. Vital signs are stable - on multiple vasopressors. General: The patient appeared well nourished and normally developed. HEENT: Head exam is unremarkable. Neck is without jugular venous distension. Intubated. LUNGS: Breath sounds decreased. HEART: Irregular rate and rhythm. Murmur present. ABDOMEN: No distention noted. EXTREMITITES: No edema. Objective - Vital Signs Vital signs: Vital Signs Temp 98.4 F 09/28/19 08:00 Pulse 106 H 09/28/19 12:00 Resp 15 09/28/19 12:00 BP 111/77 09/28/19 10:00 Pulse Ox 91 L 09/28/19 12:00 Intake & Output 09/27/19 09/28/19 09/28/19 18:59 06:59 18:59 Intake Total 7852.930 9583.222 624.006 Output Total 610 550 170 Balance 392.465 9153.222 454.006 Weight 84.5 kg Intake: IV 545 481 228 0.9 240 200 60 0.9NS Sheath 240 240 120 Arterial Line 65 36 18 Diltiazem 125 mg In 5 30 Sodium Chloride 0.9% 100 ml @ 5 MG/HR 5 mls/hr IV .Q24H RJ Rx#:[id number] Intake, IV Titration 590.282 597.222 290.006 Amount DOBUTamine DRIP 500 mg In 250 Dextrose/Water 1 250ml. bag @ 5 MCG/KG/MIN 11.88 mls/hr IV .Q21H3M RJ Rx# :[id number] Heparin Sod,Pork in 0.45% 188.354 52.556 NaCl 25,000 unit In 0.45 % NaCl 1 250ml.bag @ 12.5 UNITS/KG/HR 9.95 mls/hr IV .Q24H RJ Rx#: [id number] Norepinephrine 32 mg In 140.831 226.351 141.964 Sodium Chloride 0.9% 218 ml @ 0.65 MCG/KG/MIN 26. 843 mls/hr IV .Q9H19M RJ Rx#:[id number] Propofol 1,000 mg In 199.451 182.517 95.486 Empty Bag 1 bag @ Titrate IV .Q0M RJ Rx#: [id number] Oral 70 Tube Feeding 318 636 106 Output: Urine 610 550 170 Other: Voiding Method Indwelling Catheter Indwelling Catheter ABP, PAP, CO, CI - Last Documented Arterial Blood Pressure 80/60 - Labs CBC & Chem 7: 09/28/19 04:25 09/28/19 04:25 Labs: Abnormal Lab Results - Last 24 Hours (Table) 09/27/19 09/27/19 09/27/19 Range/Units 13:55 17:55 18:41 WBC (3.8-10.6) k/uL RBC (4.30-5.90) m/uL Hgb (13.0-17.5) gm/dL Hct (39.0-53.0) % MCV (80.0-100.0) fL Neutrophils # (Manual) (1.3-7.7) k/uL Monocytes # (Manual) (0-1.0) k/uL Metamyelocytes # (Man) (0) k/uL Myelocytes # (Manual) (0) k/uL Nucleated RBCs (0-0) /100 WBC APTT (22.0-30.0) sec ABG pH (7.35-7.45) ABG pO2 (83-108) mmHg ABG Total CO2 (19-24) mmol/L ABG O2 Saturation (94-97) % Potassium (3.5-5.1) mmol/L BUN (9-20) mg/dL Creatinine (0.66-1.25) mg/dL Glucose (74-99) mg/dL POC Glucose (mg/dL) 176 H 170 H 182 H (75-99) mg/dL Calcium (8.4-10.2) mg/dL AST (17-59) U/L ALT (4-49) U/L Total Protein (6.3-8.2) g/dL Albumin (3.5-5.0) g/dL 09/27/19 09/28/19 09/28/19 Range/Units 23:33 04:25 04:25 WBC 20.3 H (3.8-10.6) k/uL RBC 3.44 L (4.30-5.90) m/uL Hgb 11.5 L (13.0-17.5) gm/dL Hct 36.1 L (39.0-53.0) % MCV 105.0 H (80.0-100.0) fL Neutrophils # (Manual) 15.43 H (1.3-7.7) k/uL Monocytes # (Manual) 2.44 H (0-1.0) k/uL Metamyelocytes # (Man) 0.20 H (0) k/uL Myelocytes # (Manual) 0.41 H (0) k/uL Nucleated RBCs 10 H (0-0) /100 WBC APTT 40.0 H (22.0-30.0) sec ABG pH (7.35-7.45) ABG pO2 (83-108) mmHg ABG Total CO2 (19-24) mmol/L ABG O2 Saturation (94-97) % Potassium (3.5-5.1) mmol/L BUN (9-20) mg/dL Creatinine (0.66-1.25) mg/dL Glucose (74-99) mg/dL POC Glucose (mg/dL) 164 H (75-99) mg/dL Calcium (8.4-10.2) mg/dL AST (17-59) U/L ALT (4-49) U/L Total Protein (6.3-8.2) g/dL Albumin (3.5-5.0) g/dL 09/28/19 09/28/19 09/28/19 Range/Units 04:25 04:57 05:50 WBC (3.8-10.6) k/uL RBC (4.30-5.90) m/uL Hgb (13.0-17.5) gm/dL Hct (39.0-53.0) % MCV (80.0-100.0) fL Neutrophils # (Manual) (1.3-7.7) k/uL Monocytes # (Manual) (0-1.0) k/uL Metamyelocytes # (Man) (0) k/uL Myelocytes # (Manual) (0) k/uL Nucleated RBCs (0-0) /100 WBC APTT (22.0-30.0) sec ABG pH 7.34 L (7.35-7.45) ABG pO2 72 L (83-108) mmHg ABG Total CO2 25 H (19-24) mmol/L ABG O2 Saturation 92.3 L (94-97) % Potassium 5.2 H (3.5-5.1) mmol/L BUN 76 H (9-20) mg/dL Creatinine 1.56 H (0.66-1.25) mg/dL Glucose 171 H (74-99) mg/dL POC Glucose (mg/dL) 205 H (75-99) mg/dL Calcium 7.8 L (8.4-10.2) mg/dL AST 1495 H (17-59) U/L ALT 1041 H (4-49) U/L Total Protein 5.2 L (6.3-8.2) g/dL Albumin 2.8 L (3.5-5.0) g/dL 09/28/19 Range/Units 12:10 WBC (3.8-10.6) k/uL RBC (4.30-5.90) m/uL Hgb (13.0-17.5) gm/dL Hct (39.0-53.0) % MCV (80.0-100.0) fL Neutrophils # (Manual) (1.3-7.7) k/uL Monocytes # (Manual) (0-1.0) k/uL Metamyelocytes # (Man) (0) k/uL Myelocytes # (Manual) (0) k/uL Nucleated RBCs (0-0) /100 WBC APTT (22.0-30.0) sec ABG pH (7.35-7.45) ABG pO2 (83-108) mmHg ABG Total CO2 (19-24) mmol/L ABG O2 Saturation (94-97) % Potassium (3.5-5.1) mmol/L BUN (9-20) mg/dL Creatinine (0.66-1.25) mg/dL Glucose (74-99) mg/dL POC Glucose (mg/dL) 175 H (75-99) mg/dL Calcium (8.4-10.2) mg/dL AST (17-59) U/L ALT (4-49) U/L Total Protein (6.3-8.2) g/dL Albumin (3.5-5.0) g/dL Assessment and Plan Plan: Assessment: 1. Acute kidney injury secondary to ATN secondary to cardiopulmonary arrest. Creatinine stable at 1.56 today. 2. Status post cardiac arrest. 3. Acute MD status post cardiac catheterization with stenting of the RCA. 4. Hypotension maintained on high-dose vasopressors. 5. Acute hypoxic respiratory failure. 6. Ruptured LV and pseudoaneurysm with possible VSD noted on KIM this admission. 7. A. fib with RVR maintained on Cardizem drip. Plan: Maintain tube feeding. Continue to monitor renal function and urine output. If remains oliguric, I will challenge him with a dose of IV Lasix. Repeat electrolytes this evening. Potential hospice being considered. At this time, patient will not be able to tolerate renal replacement therapy due to severe hemodynamic instability.
[2019-09-28 13:29] VITALS: TEMP 98.6
--- NOTE | 2019-09-28 13:32 | PN ---
PROGRESS NOTE Finn is a 79-year-old gentleman who was admitted to hospital with acute inferior wall myocardial infarction on 09/19/2019. I have seen him at that time and performed an emergent cardiac catheterization that revealed acute occlusion of the right coronary artery. The patient underwent angioplasty of the same. His post angioplasty course was complicated by respiratory failure, cardiac arrest secondary to bradycardia and he subsequently underwent a KIM, temporary pacemaker and right heart catheterization. Workup so far has revealed a pseudoaneurysm, possible VSD and the patient remains intubated on vent, severely hypotensive in cardiogenic shock, had been evaluated by a cardiothoracic surgeon and thought not to be a candidate for any surgical intervention. He developed atrial fibrillation and is currently on intravenous heparin. After my initial evaluation with the acute TX, I am seeing him again today. The patient is currently on Lipitor, Plavix, Cardizem, dobutamine, which I am going to taper and stop and pressors. On exam, heart rate is 115 beats per minute. Blood pressure is 82/59, respiratory rate is 12. He is intubated on vent with FiO2 of 50%. Chest exam reveals good air entry. I do not hear any crackles or rhonchi. Heart exam reveals first and second heart sounds with a pansystolic murmur that radiates across the chest, abdomen is soft. Exam of extremities reveals mild edema. Peripheral pulses are palpable. Labs show that the white cell count is 20, hemoglobin is 11.5, potassium is 5.2, BUN is 76, creatinine is 1.5. AST, ALT are elevated. ASSESSMENT: 1. Cardiogenic shock. 2. Acute inferior wall myocardial infarction. 3. Persistent atrial fibrillation. 4. Severe hypotension on pressors. 5. Mechanical complications related to inferior wall myocardial infarction with pseudoaneurysm and possible VSD. I reviewed the right heart cath findings, but I do not have the blood gases done at that time. The patient's prognosis is guarded. MMODL / IJN: [id number] /
--- NOTE | 2019-09-28 14:13 | P.PN ---
Subjective 79 years old male with past medical history of hypertension, hyperlipidemia, dementia, prostate cancer status post radiotherapy , patient presents because of chest pain found to have STEMI, he underwent cardiac cath status post stent placement in the right coronary artery. He is in the ICU. His creatinine increased today to 1.4, WBC is high at 18.6 and 19.6 K, sodium 131, his chest x-ray showing pulmonary congestion with possible interstitial pneumonia He saturating 90s on 7 L/m oxygen via nasal cannula. Experimental Psychologist already given 1 dose of Lasix IV and continued on 40 mg by mouth daily, 1 going to give him another dose of Lasix. Blood pressure is on the low normal but he is tachypneic at 35. A but that side nurse his breathing is li ttle better in the evening than in the morning and he did not need BiPAP for now. He is also on aspirin and Plavix, he is on metoprolol 12.5 mg and lisinopril 2.5 mg, we going to hold lisinopril for now Also call pulmonary and nephrology consult 09/21/2019 Patient breathing easier but however his significantly tachypneic and mid 20s, he saturating 94% on 9 L oxygen via nasal cannula. His blood pressure 96/57 and heart rate 77. He still bleeding from dyspnea but no chest pain, he has little cough with clear phlegm. This morning he was trying to get out of bed to the restroom by himself when he fell on hit his head in the forehead area. Chest x-ray: Pulmonary edema, atypical pneumonia, some right lower lobe pneumonia WBC this morning is 18.1 K with slight improvement. Sodium 132, creatinine stable at 1.5. Procol stone and is elevated at 0.23 Patient is currently on by mouth Lasix, lisinopril is held, asphalt layer recommended to continue with metoprolol 12.5, we going to check with cardiology about holding parameters. Continue with Levaquin. Ordered EKG 09/22/19 Patient awake and alert, his breathing is easier although he still complains from some chest pain with little dyspnea and the 10 cough. He is saturating 94% on 3-5 L of oxygen via nasal cannula. Rest of Vitas looks stable, however her blood pressure is on the low side, this morning was 78/56- 94/59 WBC is 17.1 K, hemoglobin 12.2, sodium 128, creatinine went up to 2.3. Lactic acid is elevated at 3.8. ProBNP is 41 500 sputum culture is pending. Chest x-ray showing stable changes with diffuse parenchymal changes or diffuse pneumonia or CHF/pulmonary edema Cardiology started the patient on dobutamine drip, also he got 1 dose of Lasix 60 mg IV 1 and on sodium bicarbonate tablets. Patient also is on Levaquin 250 mg by mouth daily, which is renal dose. Pulmonary nephrology and cardiology teams on the case 09/23/2019 Patient is still complaining of shortness of breath patient has significant rhonchi streaking heart failure exacerbation patient is presently on dobutamine drip does have atrial fibrillation for which patient is on Cardizem, patient is still hyponatremic receiving sodium bicarbonate tablets is also on Lasix, patient is on metoprolol as well. Patient was started on IV heparin. We will d yspnea Cardizem as it decreases as it [facility] heart failure. Nephrology is following the patient patient probably has hypovolemic hyponatremia Patient went into asystole after which the patient had a temporary transvenous a speckled placement , patient was also intubated because of respiratory failure. Patient is presently on dopamine drip and also on norepinephrine drip. Patient is presently sinus rhythm. Patient still has pulmonary edema on the chest x-ray nephrology is managing diuretics patient serum sodium continues to be low at 124we creatinine continued to go up to subacute 2.September Patient remains on ventilator support with FiO2 of 50% deep of 5 respiratory set up respiratory rate of 12. Blood gases did not show any significant abnormality. Patient remains are not epinephrine 8 mcg/m dobutamine drip propofol drip heparin drip presently sinus rhythm, nutrition via NG tube 09/26/2019 No significant change in his overall clinical condition except for some improvement in his serum sodium of 133 white blood cell count continued to go up patient remains on ventilator support patient is on 2 pressors. Fairly good urine output liver enzymes are coming down patient had a sick sedation medication today hypokalemia potassium is being replaced 09/27/2019 Patient underwent transesophageal echocardiogram which was concerning for ruptured posterior wall. Because of his cardiothoracic surgery was consulted and evaluated the patient and any surgical intervention at this time is more harmful than benefit because of which no further intervention is being planned at this time although there is overall clinical improvement except for white blood cell count which continues to cough serum sodium improved, kidney function improved, liver enzymes improved, patient remains in a dual pressor support and ventilatory support able to ventilate well chest x-ray showing CHF 09/28/2019 Patient. The which showed posterior wall rupture along with the of VSD and significant hypokinesis of the inferior wall. Patient prognosis is extremely poor with the wall rupture post microinfarction and with 3 AICD. Patient does have significant systolic murmur which is consistent with VSD. Patient is on multiple medications and multiple pressors including norepinephrine, vasopressin, dobutamine, patient is on paralytic agents as well as propofol. Patient is also on Cardizem which the actually counteract side effects of dobutamine and vasopressin unfortunately there is no much choice for atrial fibrillation. Patient is not on amiodarone because of elevated liver enzymes which is again secondary to shock liver patient cannot get the digoxin because of renal failure patient is a on metoprolol cannot receive any IV medication because of low blood pressure and multiple antidepressant medications. Patient prognosis is extremely poor in spite of for surgery for post-MN wall rupture and VSD but patient is an extremely poor candidate and will not make her do the surgery because of which cardiothoracic surgery is not recommending any surgical intervention at this time. And prognosis is extremely poor same thing was discussed with the family and I discussed hospice comfort care withdrawal of the ventilatory support and pressor support was discussed with the family which his daughter daughter is coming today to discuss with rest of the family members and will make induration regarding comfort care and hospice withdrawal of supportive care. review of systems: Unable to obtain as patient is intubated and sedated at this time All inpatient medications were reviewed and appropriate changes in these medications as dictated in the interval history and assessment and plan. Objective - Vital Signs Vital signs: Vital Signs Temp 98.6 F 09/28/19 12:00 Pulse 115 H 09/28/19 13:00 Resp 15 09/28/19 13:00 BP 116/73 09/28/19 13:00 Pulse Ox 90 L 09/28/19 13:00 Intake & Output 09/27/19 09/28/19 09/28/19 18:59 06:59 18:59 Intake Total 9927.579 3264.222 662.006 Output Total 610 550 178 Balance 732.901 7359.222 484.006 Weight 84.5 kg Intake: IV 545 481 266 0.9 240 200 70 0.9NS Sheath 240 240 140 Arterial Line 65 36 21 Diltiazem 125 mg In 5 35 Sodium Chloride 0.9% 100 ml @ 5 MG/HR 5 mls/hr IV .Q24H RJ Rx#:[id number] Intake, IV Titration 590.282 597.222 290.006 Amount DOBUTamine DRIP 500 mg In 250 Dextrose/Water 1 250ml. bag @ 5 MCG/KG/MIN 11.88 mls/hr IV .Q21H3M RJ Rx# :[id number] Heparin Sod,Pork in 0.45% 188.354 52.556 NaCl 25,000 unit In 0.45 % NaCl 1 250ml.bag @ 12.5 UNITS/KG/HR 9.95 mls/hr IV .Q24H RJ Rx#: [id number] Norepinephrine 32 mg In 140.831 226.351 141.964 Sodium Chloride 0.9% 218 ml @ 0.65 MCG/KG/MIN 26. 843 mls/hr IV .Q9H19M RJ Rx#:[id number] Propofol 1,000 mg In 199.451 182.517 95.486 Empty Bag 1 bag @ Titrate IV .Q0M RJ Rx#: [id number] Oral 70 Tube Feeding 318 636 106 Output: Urine 610 550 178 Other: Voiding Method Indwelling Catheter Indwelling Catheter Indwelling Catheter ABP, PAP, CO, CI - Last Documented Arterial Blood Pressure 80/58 - Exam GENERAL:patient is intubated sedated HEENT: Pupils are round and equally reacting to light. EOMI. No scleral icterus. No conjunctival pallor. Normocephalic, atraumatic. No pharyngeal erythema. No thyromegaly. CARDIOVASCULAR: S1 and S2 present. No or gallops. Does have elevated JVD. Systolic murmur consistent with VSD -PULMONARY: Diffuse bilateral crackles ABDOMEN: Soft, nontender, nondistended, normoactive bowel sounds. No palpable organomegaly. MUSCULOSKELETAL: No joint swelling or deformity. EXTREMITIES: No cyanosis, clubbing, or pedal edema. NEUROLOGICAL: unable to assess. SKIN: No rashes. no petechiae. - Labs CBC & Chem 7: 09/28/19 04:25 09/28/19 04:25 Labs: Abnormal Lab Results - Last 24 Hours (Table) 09/27/19 09/27/19 09/27/19 Range/Units 17:55 18:41 23:33 WBC (3.8-10.6) k/uL RBC (4.30-5.90) m/uL Hgb (13.0-17.5) gm/dL Hct (39.0-53.0) % MCV (80.0-100.0) fL Neutrophils # (Manual) (1.3-7.7) k/uL Monocytes # (Manual) (0-1.0) k/uL Metamyelocytes # (Man) (0) k/uL Myelocytes # (Manual) (0) k/uL Nucleated RBCs (0-0) /100 WBC APTT (22.0-30.0) sec ABG pH (7.35-7.45) ABG pO2 (83-108) mmHg ABG Total CO2 (19-24) mmol/L ABG O2 Saturation (94-97) % Potassium (3.5-5.1) mmol/L BUN (9-20) mg/dL Creatinine (0.66-1.25) mg/dL Glucose (74-99) mg/dL POC Glucose (mg/dL) 170 H 182 H 164 H (75-99) mg/dL Calcium (8.4-10.2) mg/dL AST (17-59) U/L ALT (4-49) U/L Total Protein (6.3-8.2) g/dL Albumin (3.5-5.0) g/dL 09/28/19 09/28/19 09/28/19 Range/Units 04:25 04:25 04:25 WBC 20.3 H (3.8-10.6) k/uL RBC 3.44 L (4.30-5.90) m/uL Hgb 11.5 L (13.0-17.5) gm/dL Hct 36.1 L (39.0-53.0) % MCV 105.0 H (80.0-100.0) fL Neutrophils # (Manual) 15.43 H (1.3-7.7) k/uL Monocytes # (Manual) 2.44 H (0-1.0) k/uL Metamyelocytes # (Man) 0.20 H (0) k/uL Myelocytes # (Manual) 0.41 H (0) k/uL Nucleated RBCs 10 H (0-0) /100 WBC APTT 40.0 H (22.0-30.0) sec ABG pH (7.35-7.45) ABG pO2 (83-108) mmHg ABG Total CO2 (19-24) mmol/L ABG O2 Saturation (94-97) % Potassium 5.2 H (3.5-5.1) mmol/L BUN 76 H (9-20) mg/dL Creatinine 1.56 H (0.66-1.25) mg/dL Glucose 171 H (74-99) mg/dL POC Glucose (mg/dL) (75-99) mg/dL Calcium 7.8 L (8.4-10.2) mg/dL AST 1495 H (17-59) U/L ALT 1041 H (4-49) U/L Total Protein 5.2 L (6.3-8.2) g/dL Albumin 2.8 L (3.5-5.0) g/dL 09/28/19 09/28/19 09/28/19 Range/Units 04:57 05:50 12:10 WBC (3.8-10.6) k/uL RBC (4.30-5.90) m/uL Hgb (13.0-17.5) gm/dL Hct (39.0-53.0) % MCV (80.0-100.0) fL Neutrophils # (Manual) (1.3-7.7) k/uL Monocytes # (Manual) (0-1.0) k/uL Metamyelocytes # (Man) (0) k/uL Myelocytes # (Manual) (0) k/uL Nucleated RBCs (0-0) /100 WBC APTT (22.0-30.0) sec ABG pH 7.34 L (7.35-7.45) ABG pO2 72 L (83-108) mmHg ABG Total CO2 25 H (19-24) mmol/L ABG O2 Saturation 92.3 L (94-97) % Potassium (3.5-5.1) mmol/L BUN (9-20) mg/dL Creatinine (0.66-1.25) mg/dL Glucose (74-99) mg/dL POC Glucose (mg/dL) 205 H 175 H (75-99) mg/dL Calcium (8.4-10.2) mg/dL AST (17-59) U/L ALT (4-49) U/L Total Protein (6.3-8.2) g/dL Albumin (3.5-5.0) g/dL 09/28/19 Range/Units 12:40 WBC (3.8-10.6) k/uL RBC (4.30-5.90) m/uL Hgb (13.0-17.5) gm/dL Hct (39.0-53.0) % MCV (80.0-100.0) fL Neutrophils # (Manual) (1.3-7.7) k/uL Monocytes # (Manual) (0-1.0) k/uL Metamyelocytes # (Man) (0) k/uL Myelocytes # (Manual) (0) k/uL Nucleated RBCs (0-0) /100 WBC APTT 41.0 H (22.0-30.0) sec ABG pH (7.35-7.45) ABG pO2 (83-108) mmHg ABG Total CO2 (19-24) mmol/L ABG O2 Saturation (94-97) % Potassium (3.5-5.1) mmol/L BUN (9-20) mg/dL Creatinine (0.66-1.25) mg/dL Glucose (74-99) mg/dL POC Glucose (mg/dL) (75-99) mg/dL Calcium (8.4-10.2) mg/dL AST (17-59) U/L ALT (4-49) U/L Total Protein (6.3-8.2) g/dL Albumin (3.5-5.0) g/dL Assessment and Plan Plan: -STEMI status post cardiac cath and stent placement in the RCA. 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 -Possible posterior wall fracture cardiothoracic evaluation and further management as mentioned above -Cardiac shock: Patient on multiple pressor support as mentioned above -Elevated liver enzymes secondary to shock liver worse compared to yesterday -New-onset atrial fibrillation Acute kidney injury prerenal azotemia secondary to heart failure exacerbation -Hypervolemic hyponatremia secondary to heart failure which improved now Hypotension Fall, with no dizziness or syncope -Patient is on levofloxacin because of possibly of pneumonia Hypertension Hyperlipidemia History of prostate cancer status post radiotherapy
[2019-09-28] MEDS ORDERED: MORPHINE SULFATE 4 MG/ML SYRINGE IV PRN (16:52)
[2019-09-28] MEDS ORDERED: ATROPINE OPHTH SOLN 1% 5ML BTL SUBLINGUAL PRN (16:52)
[2019-09-28] MEDS ORDERED: MORPHINE SULFATE 2 MG/ML SYRINGE IV PRN (16:52)
[2019-09-28] MEDS ORDERED: MORPHINE SULFATE 4 MG/ML SYRINGE IVP ONE (16:52)
[2019-09-28] MEDS ORDERED: MORPHINE SULFATE (100 MG/2 ML) 100 MG in SODIUM CHLORIDE 0.9% 100 ML IV SCH (17:00)
[2019-09-28] MEDS ORDERED: SCOPOLAMINE 1.5MG/72HR PATCH TRANSDERM SCH (17:00)
[2019-09-28 18:12] VITALS: RESP 16
[2019-09-28 19:28] VITALS: BP 118/68; PULSE 90
--- NOTE | 2019-09-29 13:50 | P.DS ---
Providers Date of admission: 09/19/19 08:09 Attending physician: Beck Chavez Consults: 09/19/19 08:00 Consult Physician Stat Consulting Provider: [facility] Consult Reason/Comments: STEMI ACTIVATION COMPLETE Do you want consulting provider notified?: Yes 09/20/19 19:24 Consult Physician Routine Consulting Provider: Adenike Woodard Consult Reason/Comments: hypoxia, icu management Do you want consulting provider notified?: Already Contacted 09/20/19 20:52 Consult Physician Urgent Consulting Provider: Padmini Vázquez Consult Reason/Comments: isamar Do you want consulting provider notified?: Yes 09/27/19 10:12 Consult Physician Routine Consulting Provider: Augustin Galvan Consult Reason/Comments: left ventrical pseudoanyeurism Do you want consulting provider notified?: Already Contacted Primary care physician: Pollo James [place] [facility] Course: Please refer to my progress note for further details since of family decided that on comfort care and hospice patient was terminally extubated and all the pressors were discontinued patient subsequently please refer to nursing documentation for exact time of . For rest of the hospitalization course and medical problems please refer to HPI for further details Preliminary cause of : Acute myocardial infarction Patient Condition at Discharge: Critical Plan - Discharge Summary Discharge Rx Participant: Yes New Discharge Prescriptions: No Action Beet Root 1000mg 2,000 mg PO DAILY amLODIPine [Norvasc] 5 mg PO DAILY Atorvastatin Calcium [Lipitor] 20 mg PO HS Cholecalciferol [Vitamin D3 (25 Mcg = 1000 Iu)] 5,000 unit PO DAILY Citalopram Hydrobromide [CeleXA] 20 mg PO DAILY Donepezil [Aricept] 10 mg PO DAILY Magnesium Oxide [Mag-Ox] 800 mg PO DAILY Memantine HCl [Memantine HCl ER] 28 mg PO DAILY Tamsulosin HCl [Flomax] 0.4 mg PO DAILY traZODone HCL 150 mg PO HS Vitamin B Complex 1 tab PO DAILY Discharge Medication List Atorvastatin Calcium [Lipitor] 20 mg PO HS 09/19/19 [History] Beet Root 1000mg 2,000 mg PO DAILY 09/19/19 [History] Cholecalciferol [Vitamin D3 (25 Mcg = 1000 Iu)] 5,000 unit PO DAILY 09/19/19 [History] Citalopram Hydrobromide [CeleXA] 20 mg PO DAILY 09/19/19 [History] Donepezil [Aricept] 10 mg PO DAILY 09/19/19 [History] Magnesium Oxide [Mag-Ox] 800 mg PO DAILY 09/19/19 [History] Memantine HCl [Memantine HCl ER] 28 mg PO DAILY 09/19/19 [History] Tamsulosin HCl [Flomax] 0.4 mg PO DAILY 09/19/19 [History] Vitamin B Complex 1 tab PO DAILY 09/19/19 [History] amLODIPine [Norvasc] 5 mg PO DAILY 09/19/19 [History] traZODone HCL 150 mg PO HS 09/19/19 [History] Follow up Appointment(s)/Referral(s): [facility], [NON-STAFF] - 1-2 Days Pollo James DO [Primary Care Provider] - 1-2 days Patient Instructions/Handouts: Cardiac Rehabilitation (DC), Heart Catheterization (DC) Discharge Disposition: - Preliminary Cause of Preliminary Cause of : Acute myocardial infarction
== END 2019-09-28 20:09 | disposition expired | DRG 246 ==
LOC: EC 07:53 → 2SICU 08:08
PROVIDERS: ADMIT Hospitalist; ATTEND Hospitalist
PROC: 5A1223Z Performance of Cardiac Pacing, Continuous (ICD-10-PCS; 2019-09-19)
PROC: 4A023N7 Measurement of Cardiac Sampling and Pressure, Left Heart, Percutaneous Approach (ICD-10-PCS; 2019-09-19)
PROC: 027034Z Dilation of Coronary Artery, One Artery with Drug-eluting Intraluminal Device, Percutaneous Approach (ICD-10-PCS; principal; 2019-09-19 08:35)
PROC: 02C03ZZ Extirpation of Matter from Coronary Artery, One Artery, Percutaneous Approach (ICD-10-PCS; principal; 2019-09-19 08:35)
PROC: B2111ZZ Fluoroscopy of Multiple Coronary Arteries using Low Osmolar Contrast (ICD-10-PCS; 2019-09-19 08:35)
PROC: 4A023N7 Measurement of Cardiac Sampling and Pressure, Left Heart, Percutaneous Approach (ICD-10-PCS; 2019-09-19 08:35)
PROC: 5A1955Z Respiratory Ventilation, Greater than 96 Consecutive Hours (ICD-10-PCS; 2019-09-24)
PROC: 0BH17EZ Insertion of Endotracheal Airway into Trachea, Via Natural or Artificial Opening (ICD-10-PCS; 2019-09-24)
PROC: 5A1223Z Performance of Cardiac Pacing, Continuous (ICD-10-PCS; 2019-09-24)
PROC: 3E033XZ Introduction of Vasopressor into Peripheral Vein, Percutaneous Approach (ICD-10-PCS; 2019-09-24)
PROC: 5A12012 Performance of Cardiac Output, Single, Manual (ICD-10-PCS; 2019-09-25)
PROC: 02HV33Z Insertion of Infusion Device into Superior Vena Cava, Percutaneous Approach (ICD-10-PCS; 2019-09-25)
PROC: 04HY32Z Insertion of Monitoring Device into Lower Artery, Percutaneous Approach (ICD-10-PCS; 2019-09-25)
PROC: B24BZZ4 Ultrasonography of Heart with Aorta, Transesophageal (ICD-10-PCS; 2019-09-27)
DX: I21.19 ST elevation (STEMI) myocardial infarction involving other coronary artery of inferior wall (principal); I50.41 Acute combined systolic (congestive) and diastolic (congestive) heart failure; J18.9 Pneumonia, unspecified organism; J96.01 Acute respiratory failure with hypoxia; N17.0 Acute kidney failure with tubular necrosis; R40.2114 Coma scale, eyes open, never, 24 hours or more after hospital admission; K72.00 Acute and subacute hepatic failure without coma; E87.1 Hypo-osmolality and hyponatremia; E87.4 Mixed disorder of acid-base balance; I48.19 Other persistent atrial fibrillation; Q21.0 Ventricular septal defect; I23.3 Rupture of cardiac wall without hemopericardium as current complication following acute myocardial infarction; I44.2 Atrioventricular block, complete; I25.3 Aneurysm of heart; J98.11 Atelectasis; I25.5 Ischemic cardiomyopathy; R57.0 Cardiogenic shock; I11.0 Hypertensive heart disease with heart failure; I27.20 Pulmonary hypertension, unspecified; F03.90 Unspecified dementia, unspecified severity, without behavioral disturbance, psychotic disturbance, mood disturbance, and anxiety; I46.2 Cardiac arrest due to underlying cardiac condition; Z51.5 Encounter for palliative care; Z66 Do not resuscitate; Z11.59 Encounter for screening for other viral diseases; S09.90XA Unspecified injury of head, initial encounter; I45.10 Unspecified right bundle-branch block; R00.1 Bradycardia, unspecified; I25.10 Atherosclerotic heart disease of native coronary artery without angina pectoris; E78.5 Hyperlipidemia, unspecified; E87.6 Hypokalemia; H91.90 Unspecified hearing loss, unspecified ear; T50.8X5A Adverse effect of diagnostic agents, initial encounter; N40.0 Benign prostatic hyperplasia without lower urinary tract symptoms; E86.1 Hypovolemia; R19.7 Diarrhea, unspecified; I34.0 Nonrheumatic mitral (valve) insufficiency; T44.5X5A Adverse effect of predominantly beta-adrenoreceptor agonists, initial encounter; T50.995A Adverse effect of other drugs, medicaments and biological substances, initial encounter; R40.2354 Coma scale, best motor response, localizes pain, 24 hours or more after hospital admission; Z79.899 Other long term (current) drug therapy; Z85.46 Personal history of malignant neoplasm of prostate; Z87.891 Personal history of nicotine dependence; Z88.0 Allergy status to penicillin; Z92.3 Personal history of irradiation; Z97.4 Presence of external hearing-aid; Z95.5 Presence of coronary angioplasty implant and graft; Z86.010 Personal history of colon polyps; Z81.1 Family history of alcohol abuse and dependence; W06.XXXA Fall from bed, initial encounter; Y92.230 Patient room in hospital as the place of occurrence of the external cause
CPT/HCPCS: 33210; 36415; 36600; 70450; 71045; 80048; 80053; 82272; 82550; 82553; 82805; 82810; 83605; 83735; 83880; 84145; 84484; 85018; 85025; 85027; 85610; 85730; 87070; 87205; 87324; 93005; 93306; 93308; 93312; 93320; 93325; 93451; 93458; 94002; 94003; 94640; 99285